=== PATIENT | female | born 1975 | race Caucasian/White ===

== ENCOUNTER 2022-05-30 14:22 | Outpatient (CLI) | payer BC, SELFPAY ==
--- NOTE | 2022-05-30 15:53 | NEURO ---
NCS and/or EMG Patient Report Ordering Doctor: Mahesh Kinney DATE OF SERVICE: 05/30/22 Katie presents for electrodiagnostic testing of the upper limbs. She reports numbness and tingling in both hands. Electrodiagnostic findings: Median motor nerve demonstrates normal distal latency, amplitude and conduction velocity bilaterally. Normal ulnar motor response bilaterally. Normal median and ulnar F waves. Prolonged median sensory latency at the wrist bilaterally. Normal ulnar and radial sensory responses. On needle EMG, all muscles tested in the upper limbs showed no evidence of denervation with normal motor unit action potentials. Electrodiagnostic impression: This is an abnormal study. 1. Electrodiagnostic findings suggestive of bilateral median mononeuropathy. This is consistent with a mild bilateral carpal tunnel syndrome.
== END 2022-05-30 23:59 | disposition home or self-care (01) ==
PROVIDERS: PCP Family Medicine; Referring Provider Family Medicine; Visit Provider Family Medicine
DX: R20.2 Paresthesia of skin (principal); R20.0 Anesthesia of skin
CPT/HCPCS: 95886; 95913

== ENCOUNTER 2023-07-12 07:18 | Day surgery (SDC) | payer BC, SELFPAY ==
--- NOTE | 2023-06-19 12:15 | PCM.HP.BLA ---
History and Physical Date of Admission: 07/12/23 HPI: The patient is a 48 year old female presenting for pre-operative visit. She is scheduled for hsyteroscopy D&C w/ iud insertion, bilateral salpingectomy, right oophorectomy for right ovarian dermoid, sterilization reqwuest, menorrhagia, adenomyosis on 07/12/22. Procedure discussed along with risks, benefits and complications. Other alternatives discussed for management. Consent form signed? Yes. ? ? PAST MEDICAL HISTORY PAST MEDICAL HISTORY Diagnosis Date ? Allergic rhinitis 02/24/2016 ? Carpal tunnel syndrome, bilateral 05/31/2022 ? NCS: 05/2022: mild ? Chronic pain of left knee 03/07/2018 ? Elevated hemoglobin A1c 03/22/2021 ? Family history of early CAD 08/27/2016 ? Family history of thyroid disease 03/22/2021 ? Fibroid, uterine 09/21/2021 ? [employer] [facility] [place] ? Generalized anxiety disorder 08/27/2016 ? Hypertension, essential 05/09/2022 ? Migraine without aura and without status migrainosus, not intractable 02/22/2015 ? Obesity, Class II, BMI 35-39.9 11/20/2017 ? Obesity, Class III, BMI 40-49.9 (morbid obesity) (HCC) 11/20/2017 ? PONV (postoperative nausea and vomiting) ? ? Severe obstructive sleep apnea 04/21/2018 ? Thyroid nodule 06/30/2014 ? Well adult exam 08/25/2014 ? LAst done 03/18/2020 ? ? PAST SURGICAL HISTORY PAST SURGICAL HISTORY Procedure Laterality Date ? *STRESS TEST PC ? 09/24/2016 ? normal ? COLONOSCOPY ? 10/26/2022 ? ESOPHAGOGASTRODUODENOSCOPY TRANSORAL DIAGNOSTIC ? 06/08/2016 ? EGD ? REMOVAL GALLBLADDER ? 1994 ? ? ? CURRENT MEDICATIONS Current Outpatient Medications Medication Sig Dispense Refill ? ferrous sulfate (IRON ORAL) Take by mouth. ? ? ? losartan (COZAAR) 25 mg tablet Take 1 tablet by mouth once daily. 30 tablet 5 ? SUMAtriptan (IMITREX) 100 mg tablet Take 1 tablet by mouth as needed for migraine headache (see administration instructions). 12 tablet 3 ? fluticasone (FLONASE) 50 mcg/actuation nasal spray Use 2 Sprays in each nostril once daily. 1 Each 11 ? MULTIVITAMIN/IRON/FOLIC ACID (DAILY MULTI ORAL) Take 1 tablet by mouth once daily. ? ? ? ibuprofen (MOTRIN) 200 mg tablet Take 200 mg by mouth every 6 hours as needed. ? ? ? No current facility-administered medications for this visit. ? ? ALLERGIES: Bactrim [Sulfamethoxazole], Amlodipine, Codeine, Hctz [Thiazides], Lisinopril, and Metoprolol ? PERSONAL HISTORY: SOCIAL HISTORY Social History ? Tobacco Use ? Smoking status: Never ? Smokeless tobacco: Never Vaping Use ? Vaping Use: Never used Substance Use Topics ? Alcohol use: Not Currently ? ? Comment: rare ? Drug use: No ? FAMILY HISTORY: FAMILY HISTORY FAMILY HISTORY Problem Relation Age of Onset ? Hypertension Mother ? ? Coronary Artery Disease Father 55 ? Cervical Cancer Maternal Grandmother ? ? Hypertension Maternal Grandmother ? ? Hypertension Maternal Grandfather ? ? Stroke Maternal Grandfather ? ? Colon Cancer Paternal Grandmother ? ? Prostate Cancer Paternal Grandfather ? ? Diabetes Maternal Aunt ? ? Diabetes Maternal Aunt ? ? Hypertension Maternal Aunt ? ? Thyroid Maternal Aunt ? ? Coronary Artery Disease Maternal Aunt ? ? 40's ? Hypertension Maternal Uncle ? ? ? REVIEW OF SYMPTOMS: GENERAL: denies fevers or chills ENDOCRINOLOGY: has not been on steroids Cardiology : denies palpitations or chest pain Respiratory: denies SOB or cough Hematology: denies history of prolonged bleeding or easy bruising or VTE Allergy: Denies history of personal or family history of allergy to anesthesia ? PHYSICAL EXAMINATION: ? VITALS: Last menstrual period 05/23/2023. ? GENERAL: The patient is well nourished, well hydrated in no acute distress. , The patient is oriented to time, place, and person. NECK: Supple. No lynphadenopathy, normal thyroid, no thyromegaly. LUNGS: Clear to auscultation bilaterally. no wheezes, rhonchi or rales HEART: Regular rate and rhythm, Normal heart sounds, and No murmurs or gallops ? ? PELVIC US 05/03/23 Indication Follow up adnexal cyst Impression A anteverted uterus seen that measures 96 mm x 57 mm x 64 mm. The myometrium is suspicious of adenomyosis but no obvious fibroids are observed. The central endometrium complex measures 10.7 mm in combined thickness. No abnormal blood flow to suggest a polyp or focal endometrial pathology is observed within the endometrial complex. The contour of the endometrial cavity was normal on 3-D imaging. There is a left ovarian cyst that is simple appearing and 3.3 cm in size. There are two right ovarian cysts measuring 7.2 cm in size and 2.0 cm in size. The ?cysts contain shadowing and hyperechoic lines. Appearance most consistent with dermoid cysts. There is no free fluid visualized in the peritoneal cavity. Recommendations 1. Possible adenomyosis. 2. O-RADS 2 ovarian simple cyst, almost certainly benign. No follow up imaging is needed. 3. O-RADS 2 ovarian lesion, non-simple cyst that is most likely a dermoid, almost certainly benign. Follow up ultrasound is recommended in 12 months if no surgical intervention. Clinical correlation is recommended. ? ? PAP and HPV neg 05/2023 EMB done 06/19/23 ? ? IMPRESSION: sterilzation request, right ovarian dermoid, menorrhagia, adenomyosis ? PLAN: The risks/benefits/alternatives and personal involved for the planned laparoscopic bilateral salpingectomy, right oophrectomy, hysteroscopy D&C w/ IUD insertion were reviewed with the patient. Her questions were answered to her satisfaction and she desires to proceed. Consent was signed. I reviewed with her postop instructions and expectations. ? I have reviewed and updated past medical and surgical history, medications and allergies Assessment & Plan Assessment/Plan (1) Dermoid cyst of right ovary: (2) Request for sterilization: (3) Menorrhagia: (4) Adenomyosis:
[2023-07-04 09:54] LABS: Hematocrit 38.3 % (37-47); Mean Corp Hgb Conc 31.3 g/dL (32-36); Mean Corpuscular Hgb 27.1 pg (27.0-32.0); Mean Corpuscular Volume 86.5 fL (81-99); Platelet Count 303 K/mm3 (150-450); RBC Distribution Width CV 14.6 % (11.6-14.6); RBC Distribution Width SD 46.5 fl (35.1-43.9); Red Blood Count 4.43 M/mm3 (4.2-5.4); White Blood Count 6.2 K/mm3 (4.4-11.0)
--- OUTSIDE RECORDS SUMMARY | 2023-07-12 07:40 | XMS RPT_ITS | CCD ---
Author Name Unknown Address [address] [place] [address] Organization [facility] Care Team Providers Care Party Planner Name Role Phone CALVIN VEGA Unavailable Unavailable Harleen Wilson Unavailable Unavailable Unknown, Referring Provider Unavailable Unav ailable Harleen Wilson Unavailable Unavailable Unavailable Unavailable Unavailable Jese Boston DO Unavailable Unavailable Mohamud Vegarey A Unavailable Unavailable Harleen Wilson Unavailable Unavailable Unknown, Referring Provider Unavailable Unav ailable Calvin Vega A Unavailable Unavailable Unavailable Calvin Vega MD Primary Care Provider Calvin Vega MD Primary Care Provider [phone] Calvin Vega MD Primary Care Provider Calvin Vega MD Primary Care Provider CALVIN VEGA Primary Care Unavailable AYDEE ECKERT JR Attending Unavailable SILVIA, CALVIN A Referring Unavailable SILVIA, CALVIN A Primary Care Unavailable BARRY GARCIA Referring Unavailable SILVIA, CALVIN A Primary Care Unavailable SILVIA, CALVIN A Referring Unavailable BARRY GARCIA Attending Unavailable SILVIA, CALVIN A Primary Care Unavailable BARRY GARCIA Referring Unavailable SILVIA, CALVIN A Primary Care Unavailable SILVIA, CALVIN A Primary Care Unavailable SILVIA, CALVIN A Referring Unavailable SILVIA, CALVIN A Primary Care Unavailable BARRY GARCIA Attending Unavailable SILVIA, CALVIN A Primary Care Unavailable LINDSAY HERRERA Attending Unavailable SILVIA, CALVIN A Primary Care Unavailable HOSEA TUCKER Referring Unavailable SILVIA, CALVIN A Primary Care Unavailable HOSEA TUCKER Referring Unavailable RADHA NORRIS Attending Unavailable SILVIA, CALVIN A Primary Care Unavailable RADHA NORRIS Referring Unavailable RADHA NORRIS Attending Unavailable SILVIA, CALVIN A Primary Care Unavailable SILVIA, CALVIN A Referring Unavailable HOSEA TUCKER Attending Unavailable SILVIA, CALVIN A Primary Care Unavailable LINDSAY HERRERA Attending Unavailable SILVIA, CALVIN A Primary Care Unavailable LINDSAY HERRERA Referring Unavailable SILVIA, CALVIN A Primary Care Unavailable LINDSAY HERRERA Attending Unavailable SILVIA, CALVIN A Primary Care Unavailable RADHA NORRIS Referring Unavailable TOMMIE OLMOS Attending Unavailable SILVIA, CALVIN A Primary Care Unavailable SILVIA, CALVIN A Attending Unavailable HOSEA TUCKER Referring Unavailable SILVIA, CALVIN A Primary Care Unavailable SILVIA, CALVIN A Referring Unavailable SILVIA, CALVIN A Primary Care Unavailable SILVIA, CALVIN A Referring Unavailable Allergies Allergy Classification Reported Allergen(s) Allergy Type Date of Onset Reaction(s) Facility Opioid Agonists (5 sources) Codeine; Translations: [codeine] Drug Allergy [facility] [address] Work Phone: Sulfamethoxazole / Trimethoprim (5 sources) Sulfamethoxazole / Trimethoprim; Translations: [Bactrim] Drug Allergy [facility] [address] Work Phone: (20 sources) codeine; Translations: [CODEINE] Drug Allergy 06-30-20 14 Other: See Comments [facility] Other [place] [facility] (20 sources) sulfamethoxazole; Translations: [SULFAMETHOXAZOLE] Drug Allergy 06-30-20 14 Hives, Other: See Comments [facility] Other [place] [facility] (2 sources) Sulfamethoxazole / Trimethoprim; Translations: [Bactrim] Drug Allergy [facility] [address] Work Phone: (17 sources) amLODIPine; Translations: [AMLODIPINE] Drug Allergy 10-05-19 23 Swelling [facility] Work Phone: (17 sources) Lisinopril; Translations: [LISINOPRIL] Drug Allergy 10-05-19 Cough [facility] Work Phone: (17 sources) Metoprolol; Translations: [METOPROLOL] Drug Allergy 10-05-19 Intolerance [facility] Work Phone: (17 sources) Thiazides; Translations: [THIAZIDES] Drug Intolerance 10-05-19 23 Intolerance [facility] Work Phone: Medications Current Medications Medication Drug Class(es) Dates Sig (Normalized) Sig (Original) amLODIPine 5 mg oral tablet (3 sources) Dihydropyridine Calcium Channel Hao Start: 05-10-2022 End: 06-14-2022 take 1 tablet by mouth once daily amLODIPine (NORVASC) 5 mg tablet Take 1 tablet by mouth once daily. 90 tablet 1 05/10/2022 06/14/2022 Discontinued (Side Effects) Completed/Discontinued Medications Medication Drug Class(es) Dates Sig (Normalized) Sig (Original) Lillow 0.15-30 MG-MCG Oral Tablet (6 sources) Progestin, Estrogen, Progestin-containin g Intrauterine Device Start: 07-21-2019 take 1 tablet by mouth once daily Lillow 0.15-30 MG-MCG Oral Tablet TAKE 1 TABLET DAILY. Quantity: 1 Refills: 7 [place] DO, Jese Start : 21-Jul-2019 Active 28 Tablet Pack Problems Active Problems Problem Classification Problem Date Documented Da te Episodic/Chronic Abdominal pain (19 sources) Abdominal pain - cause unknown; Translations: [Unspecified abdominal pain] Onset: 04-08-2023 04-08-2023 Episodic Anxiety disorders (20 sources) Generalized anxiety disorder; Translations: [Generalized anxiety disorder] Onset: 08-27-2016 02-25-2017 Chronic Coma, stupor, brain damage (1 source) Somnolence; Translations: [Somnolence] Onset: 04-04-2018 Episodic Endometriosis (7 sources) Uterine adenomyosis; Translations: [Adenomyosis] Onset: 05-30-2023 05-30-2023 Chronic Essential hypertension (20 sources) Essential hypertension; Translations: [Essential (primary) hypertension] Onset: 05-09-2022 Chronic Headache; including migraine (20 sources) Migraine without aura, not refractory ; Translations: [Migraine without aura, not intractable, without status migrainosus] Onset: 02-22-2015 08-27-2016 Chronic Immunizations and screening for infectious disease (1 source) Vaccination needed; Translations: [Encounter for immunization] 04-08-2023 Episodic Menstrual disorders (14 sources) Menorrhagia; Translations: [Excessive and frequent menstruation with regular cycle] Onset: 05-30-2023 05-30-2023 Chronic Other and unspecified benign neoplasm (6 sources) Leiomyoma; Translations: [Other benign neoplasm of connective and other soft tissue, site unspecified] Episodic Other and unspecified benign neoplasm (7 sources) Benign teratoma of ovary; Translations: [Benign neoplasm of left ovary] Onset: 05-30-2023 05-30-2023 Episodic Other lower respiratory disease (1 source) Snoring; Translations: [Snoring] Onset: 04-04-2018 Episodic Other lower respiratory disease (1 source) Apnea, not elsewhere classified; Translations: [Apnea, not elsewhere classified] Onset: 04-04-2018 Episodic Other nervous system disorders (20 sources) Bilateral carpal tunnel syndrome; Translations: [Carpal tunnel syndrome, bilateral upper limbs] Onset: 05-31-2022 Chronic Other nervous system disorders (1 source) Paresthesia of hand ; Translations: [Anesthesia of skin] Episodic Other nutritional; endocrine; and metabolic disorders (1 source) Morbid (severe) obesity due to excess calories; Translations: [Morbid (severe) obesity due to excess calories] Onset: 03-07-2018 Chronic Other nutritional; endocrine; and metabolic disorders (20 sources) Body mass index 40+ - severely obese; Translations: [Morbid (severe) obesity due to excess calories] Onset: 11-20-2017 03-07-2018 Chronic Other nutritional; endocrine; and metabolic disorders (2 sources) Severe obesity; Translations: [Morbid (severe) obesity due to excess calories] Chronic Other nutritional; endocrine; and metabolic disorders (13 sources) Obese class II; Translations: [Obesity, unspecified] Onset: 11-20-2017 04-08-2023 Chronic Other and delivery including normal (8 sources) Delivery normal; Translations: [Normal delivery] Episodic Past or Other Problems Problem Classification Problem Date Documented Date Episodic/Chronic Benign neoplasm of uterus (20 sources) Uterine leiomyoma; Translations: [Leiomyoma of uterus, unspecified] Onset: 09-21-2021 09-21-2021 Episodic Contraceptive and procreative management (20 sources) Patient encounter status; Translations: [Unspecified contraceptive management] Onset: 04-05-2022 Episodic Diabetes mellitus without complication (20 sources) High hemoglobin A1c level; Translations: [Other abnormal glucose] Onset: 03-22-2021 03-22-2021 Episodic Other aftercare (1 source) Other fpc (current) drug therapy; Translations: [Medication management] Onset: 04-05-2022 Episodic Other and unspecified benign neoplasm (1 source) Benign neoplasm, unspecified site; Translations: [Tubular adenoma] Onset: 10-31-2022 Episodic Other circulatory disease (20 sources) Elevated blood-pressure reading without diagnosis of hypertension; Translations: [Elevated blood-pressure reading, without diagnosis of hypertension] Onset: 08-25-2015 08-25-2015 Episodic Other non-traumatic joint disorders (20 sources) Pain in left knee; Translations: [Pain in joint, lower leg] Onset: 03-07-2018 03-22-2021 Episodic Residual codes; unclassified (20 sources) FH: premature coronary heart disease; Translations: [Family history of ischemic heart disease and other diseases of the circulatory system] Onset: 08-27-2016 08-27-2016 Episodic Residual codes; unclassified (20 sources) FH: Thyroid disorder; Translations: [Family history of other endocrine, nutritional and metabolic diseases] Onset: 03-22-2021 03-22-2021 Episodic Residual codes; unclassified (1 source) Family history of ischemic heart disease and other diseases of the circulatory system; Translations: [Family history of early CAD] Onset: 08-27-2016 Episodic Unclassified (2 sources) Patient encounter status; Translations: [Contraception management] Unclassified (8 sources) Finding of menstrual bleeding; Translations: [History of Menstruation] Results Test Name Value Interpretation Reference Range Facil ity Vital Signs Date Time Vital Sign Value Performing Clinician Facility 06-19-2023 09:33-0500 Diastolic blood pressure 82 mm[Hg] Barry Garcia MD Work Phone: [facility] 06-19-2023 09:33-0500 Heart rate 71 /min Barry Garcia MD Work Phone: [facility] 06-19-2023 09:33-0500 SaO2% (BldA) [Mass fraction] 98 % Barry Garcia MD Work Phone: [facility] 06-19-2023 09:33-0500 Systolic blood pressure 134 mm[Hg] Barry Garcia MD Work Phone: [facility] 05-30-2023 09:53-0500 Body height 168.9 cm Barry Garcia MD Work Phone: [facility] 05-30-2023 09:53-0500 Body weight 115.67 kg Barry Garcia MD Work Phone: [facility] 05-30-2023 09:53-0500 Diastolic blood pressure 76 mm[Hg] Barry Garcia MD Work Phone: [facility] 05-30-2023 09:53-0500 Systolic blood pressure 140 mm[Hg] Barry Garcia MD Work Phone: [facility] 04-08-2023 14:58-0400 Body height 168.9 cm Calvin Vega MD Work Phone: [facility] 04-08-2023 14:58-0400 Body weight 112.95 kg Calvin Vega MD Work Phone: [facility] 04-08-2023 14:58-0400 Diastolic blood pressure 82 mm[Hg] Calvin Vega MD Work Phone: [facility] 04-08-2023 14:58-0400 Heart rate 70 /min Calvin Vega MD Work Phone: [facility] 04-08-2023 14:58-0400 Respiratory rate 16 /min Calvin Vega MD Work Phone: [facility] 04-08-2023 14:58-0400 Systolic blood pressure 132 mm[Hg] Calvin Vega MD Work Phone: [facility] 10-26-2022 14:04-0400 Diastolic blood pressure 67 mm[Hg] Radha Norris MD Work Phone: [facility] 10-26-2022 14:04-0400 Heart rate 76 /min Radha Norris MD Work Phone: [facility] 10-26-2022 14:04-0400 Respiratory rate 14 /min Radha Norris MD Work Phone: [facility] 10-26-2022 14:04-0400 SaO2% (BldA) [Mass fraction] 99 % Radha Norris MD Work Phone: [facility] 10-26-2022 14:04-0400 Systolic blood pressure 130 mm[Hg] Radha Norris MD Work Phone: [facility] 10-26-2022 12:32-0400 Body temperature 98.4 [degF] Radha Norris MD Work Phone: [facility] 10-26-2022 12:32-0400 Body weight 121.5 kg Radha Norris MD Work Phone: [facility] 10-08-2022 15:28-0400 Body height 172.7 cm Radha Norris MD Work Phone: [facility] 10-08-2022 15:28-0400 Body temperature 98.71 [degF] Radha Norris MD Work Phone: [facility] 10-08-2022 15:28-0400 Body weight 121.47 kg Radha Norris MD Work Phone: [facility] 10-08-2022 15:28-0400 Diastolic blood pressure 72 mm[Hg] Radha Norris MD Work Phone: [facility] 10-08-2022 15:28-0400 Heart rate 88 /min Radha Norris MD Work Phone: [facility] 10-08-2022 15:28-0400 SaO2% (BldA) [Mass fraction] 97 % Radha Norris MD Work Phone: [facility] 10-08-2022 15:28-0400 Systolic blood pressure 134 mm[Hg] Radha Norris MD Work Phone: [facility] 10-04-2022 07:48-0400 Body temperature 97.5 [degF] Hosea Tucker PA-C Work Phone: [facility] 10-04-2022 07:48-0400 Body weight 121.11 kg Hosea Tucker PA-C Work Phone: [facility] 10-04-2022 07:48-0400 Diastolic blood pressure 76 mm[Hg] Hosea Tucker PA-C Work Phone: [facility] 10-04-2022 07:48-0400 Heart rate 70 /min Hosea Tucker PA-C Work Phone: [facility] 10-04-2022 07:48-0400 Respiratory rate 18 /min Hosea Tucker PA-C Work Phone: [facility] 10-04-2022 07:48-0400 Systolic blood pressure 124 mm[Hg] Hosea Tucker PA-C Work Phone: [facility] 09-20-2022 07:44-0400 Body weight 122.02 kg Lindsay Herrera ATOMIC PROCESS ENGINEER.AMPOULE EXAMINER Work Phone: [facility] 09-20-2022 07:44-0400 Diastolic blood pressure 76 mm[Hg] Lindsay Herrera APRN.AMPOULE EXAMINER Work Phone: [facility] 09-20-2022 07:44-0400 Heart rate 78 /min Lindsay Herrera ATOMIC PROCESS ENGINEER.AMPOULE EXAMINER Work Phone: [facility] 09-20-2022 07:44-0400 Respiratory rate 14 /min Lindsay Herrera APRN.AMPOULE EXAMINER Work Phone: [facility] 09-20-2022 07:44-0400 SaO2% (BldA) [Mass fraction] 98 % Lindsay Herrera APRN.AMPOULE EXAMINER Work Phone: [facility] 09-20-2022 07:44-0400 Systolic blood pressure 130 mm[Hg] Lindsay Herrera ATOMIC PROCESS ENGINEER.AMPOULE EXAMINER Work Phone: [facility] 08-23-2022 07:44-0500 Body weight 127.01 kg Lindsay Herrera APRN.AMPOULE EXAMINER Work Phone: [facility] 08-23-2022 07:44-0500 Diastolic blood pressure 78 mm[Hg] Lindsay Herrera ATOMIC PROCESS ENGINEER.AMPOULE EXAMINER Work Phone: [facility] 08-23-2022 07:44-0500 Heart rate 68 /min Lindsay Knoble ATOMIC PROCESS ENGINEER.AMPOULE EXAMINER Work Phone: [facility] 08-23-2022 07:44-0500 Respiratory rate 14 /min Lindsay Kaylynnoble ATOMIC PROCESS ENGINEER.AMPOULE EXAMINER Work Phone: [facility] 08-23-2022 07:44-0500 Systolic blood pressure 132 mm[Hg] Lindsay Kaylynnoble ATOMIC PROCESS ENGINEER.AMPOULE EXAMINER Work Phone: [facility] 07-19-2022 07:51-0500 Body weight 127.91 kg Lindsay Kaylynnoble ATOMIC PROCESS ENGINEER.AMPOULE EXAMINER Work Phone: [facility] 07-19-2022 07:51-0500 Diastolic blood pressure 82 mm[Hg] Lindsay Kaylynnoble ATOMIC PROCESS ENGINEER.AMPOULE EXAMINER Work Phone: [facility] 07-19-2022 07:51-0500 Heart rate 74 /min Lindsay Kaylynnoble ATOMIC PROCESS ENGINEER.AMPOULE EXAMINER Work Phone: [facility] 07-19-2022 07:51-0500 Respiratory rate 16 /min Lindsay Kaylynnoble ATOMIC PROCESS ENGINEER.AMPOULE EXAMINER Work Phone: [facility] 07-19-2022 07:51-0500 Systolic blood pressure 130 mm[Hg] Lindsay Kaylynnoble ATOMIC PROCESS ENGINEER.AMPOULE EXAMINER Work Phone: [facility] 06-14-2022 08:50-0500 Body weight 128.82 kg Lindsay Kaylynnoble ATOMIC PROCESS ENGINEER.AMPOULE EXAMINER Work Phone: [facility] 06-14-2022 08:50-0500 Diastolic blood pressure 86 mm[Hg] Lindsay Kaylynnoble ATOMIC PROCESS ENGINEER.AMPOULE EXAMINER Work Phone: [facility] 06-14-2022 08:50-0500 Heart rate 94 /min Lindsay Knoble ATOMIC PROCESS ENGINEER.AMPOULE EXAMINER Work Phone: [facility] 06-14-2022 08:50-0500 Respiratory rate 18 /min Lindsay Kaylynnoble ATOMIC PROCESS ENGINEER.AMPOULE EXAMINER Work Phone: [facility] 06-14-2022 08:50-0500 Systolic blood pressure 148 mm[Hg] Lindsay Knoble ATOMIC PROCESS ENGINEER.AMPOULE EXAMINER Work Phone: [facility] 04-05-2022 12:15-0400 Diastolic blood pressure 96 mm[Hg] Calvin Vega MD Work Phone: [facility] 04-05-2022 12:15-0400 Systolic blood pressure 152 mm[Hg] Calvin Vega MD Work Phone: [facility] 04-05-2022 11:56-0400 Body height 169.5 cm Calvin Vega MD Work Phone: [facility] 04-05-2022 11:56-0400 Body weight 126.1 kg Calvin Vega MD Work Phone: [facility] 04-05-2022 11:56-0400 Heart rate 78 /min Calvin Vega MD Work Phone: [facility] 04-05-2022 11:56-0400 Respiratory rate 16 /min Calvin Vega MD Work Phone: [facility] 02-17-2021 14:48-0400 Body height 170.18 cm Calvin Vega Work Phone: [place] [id number] [address] Work Phone: 02-17-2021 14:48-0400 Body mass index (BMI) [Ratio] 42.51 kg/m2 Calvin Vega Work Phone: [place] [address] [address] Work Phone: 02-17-2021 14:48-0400 Body surface area Derived from formula 2.3 m2 Calvin Vega Work Phone: [place] [address] [address] Work Phone: 02-17-2021 14:48-0400 Body temperature 98.6 [degF] Calvin Vega Work Phone: [place] [address] [address] Work Phone: 02-17-2021 14:48-0400 Body weight 123.1 kg Calvin Vega Work Phone: [place] [address] [address] Work Phone: 02-17-2021 14:48-0400 Diastolic blood pressure 74 mm[Hg] Calvin Vega Work Phone: [place] [address] [address] Work Phone: 02-17-2021 14:48-0400 Systolic blood pressure 134 mm[Hg] Calvin Vega Work Phone: [place] [address] [address] Work Phone: 01-25-2021 08:54-0400 Body height 170.18 cm Calvin Vega Work Phone: [place] [address] [address] Work Phone: 01-25-2021 08:54-0400 Body mass index (BMI) [Ratio] 42.41 kg/m2 Calvin Vega Work Phone: [place] [address] [address] Work Phone: 01-25-2021 08:54-0400 Body surface area Derived from formula 2.3 m2 Calvin Vega Work Phone: [place] [address] [address] Work Phone: 01-25-2021 08:54-0400 Body temperature 98.2 [degF] Calvin Vega Work Phone: [place] [address] [address] Work Phone: 01-25-2021 08:54-0400 Body weight 122.83 kg Calvin Vega Work Phone: [place] [address] [address] Work Phone: 01-25-2021 08:54-0400 Diastolic blood pressure 76 mm[Hg] Calvin Vega Work Phone: [place] [address] [address] Work Phone: 01-25-2021 08:54-0400 Systolic blood pressure 132 mm[Hg] Calvin Vega Work Phone: [address] Work Phone: Encounters Encounter Date Encounter Type Care Provider Facility Start: 06-19-2023 End: 06-19-2023 ambulatory CALVIN VEGA Facility:[facility] Start: 06-19-2023 End: 06-19-2023 ambulatory CALVIN VEGA Facility:[facility] Start: 06-19-2023 End: 06-19-2023 Patient encounter procedure Barry Garcia MD Work Phone: OB/Gynecology Procedures Date Procedure Procedure Detail Performing Clinician Start: 06-19-2023 Urine test visual color cmprsn meths Barry Garcia MD Work Phone: Start: 06-19-2023 Screening mammograph y bi 2-view breast inc cad Bulk Order Provider Start: 05-03-2023 Us pelvic nonobstetr ic real-time image complete Barry Garcia MD Work Phone: Start: 04-17-2023 Ct abdomen & pelvis w/contrast material Calvin Vega MD Work Phone: Start: 04-08-2023 INFLUENZA VACCINE, A GE 6 MO - 64 YR, QUADRIVALENT (AFLURIA, FLULAVAL, FLUZONE) Calvin Vega MD Work Phone: Start: 04-08-2023 [employer] COVI D-19 VACCINE (2022- SEASON) AGE 12+ YR Calvin Vega MD Work Phone: Start: 04-08-2023 Lipid 1996 panel - S chauncey or Plasma Ct (I-Stat) Work Phone: Start: 10-26-2022 Level iv surg pathol ogy gross&microscopic exam Radha Norris MD Work Phone: Start: 10-26-2022 Colonoscopy flx dx w /collj spec when pfrmd Radha Norris MD Work Phone: Start: 10-26-2022 Colonoscopy Calvin robbins MD Work Phone: Start: 10-04-2022 Lipid 1996 panel - S chauncey or Plasma Calvin Vega MD Work Phone: Start: 04-05-2022 INFLUENZA VACCINE QUADRIVALENT 6 MO - 64 YRS IM Calvin Vega MD Work Phone: Start: 04-05-2022 [employer] COVI D-19 BIVALENT BOOSTER VACCINE, AGE 12+ YR Calvin Vega MD Work Phone: Cholecystectomy Harleen Wilson Plan of Treatment Date Care Activity Detail Author Start: 03-18-2030 Urine microalbumin profile [facility] Start: 05-30-2028 Screening for malign ant neoplasm of cervix [facility] Start: 04-08-2028 Lipid 1996 panel - S chauncey or Plasma Lipid Screening [facility] Start: 04-08-2028 Lipid panel Lipid Screening [facility] Start: 10-27-2027 Colonoscopy COLONOSCOPY [facility] Start: 10-27-2027 COLORECTAL CANCER SCREENING COLORECTAL CANCER SCREENING [facility] Start: 10-27-2027 Screening for malign ant neoplasm of colon [facility] Start: 10-05-2027 Lipid 1996 panel - S chauncey or Plasma Lipid Screening [facility] Start: 10-05-2027 LIPID SCREEN LIPID SCREEN [facility] Start: 04-05-2027 LIPID SCREEN LIPID SCREEN [facility] Start: 04-08-2026 Diabetes Screening Diabetes Screenin g [facility] Start: 10-04-2025 DIABETES SCREEN DIABETES SCREEN [facility] Start: 07-19-2025 DIABETES SCREEN DIABETES SCREEN [facility] Start: 06-14-2025 DIABETES SCREEN DIABETES SCREEN [facility] Start: 04-05-2025 DIABETES SCREEN DIABETES SCREEN [facility] Start: 01-24-2025 HPV TESTING HPV TESTING [facility] Start: 01-24-2025 PAP TESTING PAP TESTING [facility] Start: 06-19-2024 Screening for malign ant neoplasm of breast Mammogram Screening [facility] Start: 04-08-2024 Annual PCP Team Steam Pipe Fitter shawn Disease Visit Annual PCP Team Chronic Disease Visit [facility] Start: 10-05-2023 ANNUAL PCP TEAM SENIOR SYSTEMS PROGRAMMER SHAWN DISEASE VISIT ANNUAL PCP TEAM CHRONIC DISEASE VISIT [facility] Start: 10-05-2023 BP CONTROLLED (<130/80) BP CONTROLLE D (<130/80) [facility] Start: 09-21-2023 ANNUAL PCP TEAM SENIOR SYSTEMS PROGRAMMER SHAWN DISEASE VISIT ANNUAL PCP TEAM CHRONIC DISEASE VISIT [facility] Start: 08-23-2023 ANNUAL PCP TEAM SENIOR SYSTEMS PROGRAMMER SHAWN DISEASE VISIT ANNUAL PCP TEAM CHRONIC DISEASE VISIT [facility] Start: 07-19-2023 ANNUAL PCP TEAM SENIOR SYSTEMS PROGRAMMER SHAWN DISEASE VISIT ANNUAL PCP TEAM CHRONIC DISEASE VISIT [facility] Start: 06-30-2023 Depression Assessment Depression Ass essment [facility] Immunizations Immunization Date Immunization Notes Care Provider Fa cility 04-08-2023 COVID-19 vaccine, ag e 12+ yr, season ([employer]ION[employer]) Calvin Vega MD Work Phone: [facility] 04-08-2023 influenza, injectabl e, quadrivalent, contains preservative Calvin Vega MD Work Phone: [facility] 04-05-2022 COVID-19 booster vaccine, age 12+ yr, bivalent (PFI[employer]ER-BIONTECH) Calvin Vega MD Work Phone: [facility] 04-05-2022 influenza, injectabl e, quadrivalent, contains preservative Calvin Vega MD Work Phone: [facility] 03-18-2020 influenza, injectabl e, quadrivalent, contains preservative Hosea Tucker PA-C Work Phone: [facility] 03-18-2020 tetanus toxoid, redu kinga diphtheria toxoid, and acellular pertussis vaccine, adsorbed Hosea Tucker PA-C Work Phone: [facility] 04-09-2016 influenza virus vaccine, unspecified formulation Hosea Tucker PA-C Work Phone: [facility] Work Phone: 08-25-2015 influenza, injectabl e, quadrivalent, contains preservative Hosea Tucker PA-C Work Phone: [facility] Work Phone: 06-14-2011 influenza, seasonal, injectable Barry Garcia MD Work Phone: [facility] Work Phone: 11-03-2008 tetanus toxoid, redu kinga diphtheria toxoid, and acellular pertussis vaccine, adsorbed Hosea Tucker PA-C Work Phone: [facility] Work Phone: Payers Date Payer Category Payer Unknown 2021 Unknown [employer] PPO OOS [id number] 2021-Present [phone] [address] [place] [address] PPO [id number] 2021 Unknown [id number] Social History Date Type Detail Facility Assertion Unknown if ever smoked Women [address] Work Phone: Start: 06-13-2022 End: 10-31-2022 No alcohol use No alcohol use [facility] Start: 06-16-2014 End: 04-05-2022 Tobacco smoking status [facility] Never smoked tobacco [facility] Work Phone: Start: 06-16-2014 End: 04-05-2022 Tobacco use and exposure Smokeless tobacco non-user [facility] Work Phone: Start: 09-21-2021 End: 09-11-2022 Alcohol intake Current drinker of alcohol (finding) [facility] Start: 03-18-2020 End: 04-05-2022 History SDOH Alcohol Frequency 1 [facility] Start: 03-18-2020 End: 04-05-2022 History SDOH Alcohol Std Drinks 98 [facility] Start: 06-16-2014 History SDOH Alcohol Comment rare [facility] Start: 03-18-2020 End: 06-14-2022 History SDOH Social Connections Living 3 [facility] Start: 03-18-2020 History SDOH Physica l Activity DPW 4 [facility] Start: 03-18-2020 End: 04-05-2022 History SDOH Stress 2 [facility] Start: 03-18-2020 End: 04-05-2022 History SDOH Financial 5 [facility] Start: 1975 Sex Assigned At Not on file [facility] Start: 09-11-2021 End: 04-05-2022 Exposure to SARS-CoV-2 (event) Not sure [facility] Start: 04-05-2022 History SDOH Alcohol Std Drinks 0 [facility] Start: 10-04-2022 End: 06-19-2023 Alcohol intake Ex-drinker (finding) [facility] Start: 06-13-2022 End: 10-31-2022 Social connection and isolation panel [facility] In a typical week, h ow many times do you talk on the telephone with family, friends, or neighbors? Patient refused [facility] Are you now , , , , never or living with a partner? Refused [facility] Do you feel stress - tense, restless, nervous, or anxious, or unable to sleep at night because your mind is troubled all the time - these days [OSQ] Not at all [facility] (I/We) worried wheth er (my/our) food would run out before (I/we) got money to buy more. DK or Refused [facility] Functional Status Date Assessment Result Facility NEGATED: Highlighted row Functional performance Functional status health issues are not documented [facility] [place] Work Phone: Mental Status Date Assessment Result Facility NEGATED: Highlighted row Cognitive function [Interpretation] Cognitive status health issues are not documented Disease [place] [id number] [facility] Work Phone: Clinical Notes 06-08-2016 to 07-04-2023 Barry Garcia MD - 06/19/2023 9:31 AM ESTPatient InstructionsBarry Garcia MD - 06/19/2023 9:28 AM ESTSGemma ya Mammo Tech - 06/19/2023 8:50 AM ESTPatient Instructions Note Date & Type Note Facility 07-04-2023 Note HNO ID: [id number] Author: EDITA SALDANA LPN Service: ? Author Type: LICENSED NURSE Type: Progress Notes Filed: 07/04/2023 13:29 Note Text: Scan on 07/04/2023 10:10 AM by ProviderYoko PAJodyC: Hematology Scan on 07/04/2023 12:12 PM by ProviderYoko PAJodyC: Miscellaneous Lab [facility] 06-19-2023 Note HNO ID: [id number] Author: Barry Garcia MD Service: ? Author Type: Physician Type: Progress Notes Filed: 06/19/2023 12:14 PM Note Text: Jaye is a 48 year old who presents today for an endometrial biopsy for abnormal uterine bleeding. test: negative UNIVERSAL PROTOCOL / SAFETY CHECKLIST Procedure to be Performed: EMB Sign In: A Moment of CARE was completed. Personnel directly involved with the procedure wore the appropriate PPE (Personal Protective Equipment). Patient/Surrogate Stated/Verified: PATIENT VERIFIED(optional for EMERGENT procedures): Patient name, Date of , Relevant allergies, and The intended procedure Time Out Communication: Intended patient and procedure match the source documents. Consent documented and matches the intended procedure. No implant(s) inserted. Sign Out: SIGN OUT (optional for EMERGENT procedures): All specimen containers correctly labeled. All instruments, equipment, possible retained foreign bodies accounted for. Post-procedure follow-up management communicated and Plan of Care Visit completed when applicable. Barry Garcia MD PROCEDURE: EXTERNAL GENITALIA: Normal in appearance without lesions VAGINA: Normal in appearance without lesions BIOPSY: Speculum placed into the vagina with excellent visualization of the cervix. Cervix cleaned with betadine. Anterior lip of cervix grasped with single toothed tenaculum. Uterus sounded to 7 cm. Pipelle inserted into the uterus without difficulty and endometrial biopsy obtained. Specimen labeled and sent to pathology. Procedure Summary: Patient tolerated procedure well. ASSESSMENT: abnormal uterine bleeding PLAN: Specimens labeled and sent to Pathology. Will notify patient of results in 1-2 weeks. Post-procedure instructions reviewed and written material given to the patient. Barry Garcia MD [facility] 06-19-2023 Note HNO ID: [id number] Author: Gemma Mendes Mammo Tech Service: ? Author Type: Electronic Intelligence Officer Type: Progress Notes Filed: 06/19/2023 9:17 AM Note Text: Radiology Service Progress Note PATIENT NAME: Jaye Patterson DATE OF SERVICE: June 19, 2023 TIME: 8:56 AM PATIENT IDENTITY VERIFICATION COMPLETED USING TWO (2) IDENTIFIERS: Name and Date of confirmed by patient verbally. FALL SCREENING: Has the patient had 2 falls in the last year or 1 fall with injury or currently using an Ambulatory Assistive Device (Walker, Cane, Wheelchair, Crutches, etc.)? No PATIENT GENDER DATA: Female. status: : No status: NO. PATIENT RELEVANT IMPLANT DATA REVIEWED: Not Applicable RADIOLOGY DEPARTMENT: Mammography PERIPHERAL IV DATA: Not applicable SIGNED BY: Gemma Mendes Ad [employer] June 19, 2023 8:56 AM [facility] 06-19-2023 History of Present illness Narrative Jaye is a 48 year old who presents today for an endometrial biopsy for abnormal uterine bleeding. test: negative UNIVERSAL PROTOCOL / SAFETY CHECKLIST Procedure to be Performed: EMB Sign In: A Moment of CARE was completed. Personnel directly involved with the procedure wore the appropriate PPE (Personal Protective Equipment). Patient/Surrogate Stated/Verified: PATIENT VERIFIED(optional for EMERGENT procedures): Patient name, Date of , Relevant allergies, and The intended procedure Time Out Communication: Intended patient and procedure match the source documents. Consent documented and matches the intended procedure. No implant(s) inserted. Sign Out: SIGN OUT (optional for EMERGENT procedures): All specimen containers correctly labeled. All instruments, equipment, possible retained foreign bodies accounted for. Post-procedure follow-up management communicated and Plan of Care Visit completed when applicable. Barry Garcia MD PROCEDURE: EXTERNAL GENITALIA: Normal in appearance without lesions VAGINA: Normal in appearance without lesions BIOPSY: Speculum placed into the vagina with excellent visualization of the cervix. Cervix cleaned with betadine. Anterior lip of cervix grasped with single toothed tenaculum. Uterus sounded to 7 cm. Pipelle inserted into the uterus without difficulty and endometrial biopsy obtained. Specimen labeled and sent to pathology. Procedure Summary: Patient tolerated procedure well. ASSESSMENT: abnormal uterine bleeding PLAN: Specimens labeled and sent to Pathology. Will notify patient of results in 1-2 weeks. Post-procedure instructions reviewed and written material given to the patient. Barry Garcia MD documented in this encounter [facility] 06-19-2023 Instructions Vasquez Berman Maatha - 06/19/2023 9:31 AM EST YOUR RECOVERY After your biopsy you may have: Vaginal bleeding (less than a normal menstrual period) Mild cramping Do NOT put anything in the vagina for 1 week after your endometrial biopsy. This includes: tampons douches and refraining from having sexual intercourse If you have any discomfort, you may take an over the counter pain medication (motrin, advil, ibuprofen, tylenol, etc). If this does not relieve your discomfort, contact the office. It is okay to wear a sanitary pad until the discharge and spotting stops. RISKS Although problems seldom occur with endometrial biopsies, there can be some complications. You may feel faint during and shortly after the procedure as well as have some bleeding after the procedure. There is also a risk of infection after the procedure. These complications are rare and can be easily treated. You should contact you doctor is you have any of the following: Heavy bleeding (more than your normal period) Bleeding with clots Severe abdominal pain Fever (more than 100.4F) Foul smelling vaginal discharge RESULTS We will have the results of your biopsy in 1-2 weeks. If you do not hear the results of your biopsy after 2 weeks, please contact the office for the results. If you have any additional questions or concerns please do not hesitate to contact the office. documented in this encounter [facility] 06-19-2023 History and physical note Pre-Op History and Physical HPI: The patient is a 48 year old female presenting for pre-operative visit. She is scheduled for hsyteroscopy D&C w/ iud insertion, bilateral salpingectomy, right oophorectomy for right ovarian dermoid, sterilization reqwuest, menorrhagia, adenomyosis on 07/12/22. Procedure discussed along with risks, benefits and complications. Other alternatives discussed for management. Consent form signed? Yes. PAST MEDICAL HISTORY Diagnosis Date Allergic rhinitis 02/24/2016 Carpal tunnel syndrome, bilateral 05/31/2022 NCS: 05/2022: mild Chronic pain of left knee 03/07/2018 Elevated hemoglobin A1c 03/22/2021 Family history of early CAD 08/27/2016 Family history of thyroid disease 03/22/2021 Fibroid, uterine 09/21/2021 [place] Generalized anxiety disorder 08/27/2016 Hypertension, essential 05/09/2022 Migraine without aura and without status migrainosus, not intractable 02/22/2015 Obesity, Class II, BMI 35-39.9 11/20/2017 Obesity, Class III, BMI 40-49.9 (morbid obesity) (HCC) 11/20/2017 PONV (postoperative nausea and vomiting) Severe obstructive sleep apnea 04/21/2018 Thyroid nodule 06/30/2014 Well adult exam 08/25/2014 LAst done 03/18/2020 PAST SURGICAL HISTORY Procedure Laterality Date *STRESS TEST PC 09/24/2016 normal COLONOSCOPY 10/26/2022 ESOPHAGOGASTRODUODENOSCOPY TRANSORAL DIAGNOSTIC 06/08/2016 EGD REMOVAL GALLBLADDER 1994 Current Outpatient Medications Medication Sig Dispense Refill ferrous sulfate (IRON ORAL) Take by mouth. losartan (COZAAR) 25 mg tablet Take 1 tablet by mouth once daily. 30 tablet 5 SUMAtriptan (IMITREX) 100 mg tablet Take 1 tablet by mouth as needed for migraine headache (see administration instructions). 12 tablet 3 fluticasone (FLONASE) 50 mcg/actuation nasal spray Use 2 Sprays in each nostril once daily. 1 Each 11 MULTIVITAMIN/IRON/FOLIC ACID (DAILY MULTI ORAL) Take 1 tablet by mouth once daily. ibuprofen (MOTRIN) 200 mg tablet Take 200 mg by mouth every 6 hours as needed. No current facility-administered medications for this visit. ALLERGIES: Bactrim [Sulfamethoxazole], Amlodipine, Codeine, Hctz [Thiazides], Lisinopril, and Metoprolol PERSONAL HISTORY: Social History Tobacco Use Smoking status: Never Smokeless tobacco: Never Vaping Use Vaping Use: Never used Substance Use Topics Alcohol use: Not Currently Comment: rare Drug use: No FAMILY HISTORY: FAMILY HISTORY Problem Relation Age of Onset Hypertension Mother Coronary Artery Disease Father 55 Cervical Cancer Maternal Grandmother Hypertension Maternal Grandmother Hypertension Maternal Grandfather Stroke Maternal Grandfather Colon Cancer Paternal Grandmother Prostate Cancer Paternal Grandfather Diabetes Maternal Aunt Diabetes Maternal Aunt Hypertension Maternal Aunt Thyroid Maternal Aunt Coronary Artery Disease Maternal Aunt 40's Hypertension Maternal Uncle REVIEW OF SYMPTOMS: GENERAL: denies fevers or chills ENDOCRINOLOGY: has not been on steroids Cardiology : denies palpitations or chest pain Respiratory: denies SOB or cough Hematology: denies history of prolonged bleeding or easy bruising or VTE Allergy: Denies history of personal or family history of allergy to anesthesia PHYSICAL EXAMINATION: VITALS: Last menstrual period 05/23/2023. GENERAL: The patient is well nourished, well hydrated in no acute distress. , The patient is oriented to time, place, and person. NECK: Supple. No lynphadenopathy, normal thyroid, no thyromegaly. LUNGS: Clear to auscultation bilaterally. no wheezes, rhonchi or rales HEART: Regular rate and rhythm, Normal heart sounds, and No murmurs or gallops PELVIC US 05/03/23 Indication Follow up adnexal cyst Impression A anteverted uterus seen that measures 96 mm x 57 mm x 64 mm. The myometrium is suspicious of adenomyosis but no obvious fibroids are observed. The central endometrium complex measures 10.7 mm in combined thickness. No abnormal blood flow to suggest a polyp or focal endometrial pathology is observed within the endometrial complex. The contour of the endometrial cavity was normal on 3-D imaging. There is a left ovarian cyst that is simple appearing and 3.3 cm in size. There are two right ovarian cysts measuring 7.2 cm in size and 2.0 cm in size. The cysts contain shadowing and hyperechoic lines. Appearance most consistent with dermoid cysts. There is no free fluid visualized in the peritoneal cavity. Recommendations 1. Possible adenomyosis. 2. O-RADS 2 ovarian simple cyst, almost certainly benign. No follow up imaging is needed. 3. O-RADS 2 ovarian lesion, non-simple cyst that is most likely a dermoid, almost certainly benign. Follow up ultrasound is recommended in 12 months if no surgical intervention. Clinical correlation is recommended. PAP and HPV neg 05/2023 EMB done 06/19/23 IMPRESSION: sterilzation request, right ovarian dermoid, menorrhagia, adenomyosis PLAN: The risks/benefits/alternatives and personal involved for the planned laparoscopic bilateral salpingectomy, right oophrectomy, hysteroscopy D&C w/ IUD insertion were reviewed with the patient. Her questions were answered to her satisfaction and she desires to proceed. Consent was signed. I reviewed with her postop instructions and expectations. I have reviewed and updated past medical and surgical history, medications and allergies Barry Garcia M.D. documented in this encounter [facility] 06-19-2023 History of Present illness Narrative Radiology Service Progress Note PATIENT NAME: Jaye Patterson DATE OF SERVICE: June 19, 2023 TIME: 8:56 AM PATIENT IDENTITY VERIFICATION COMPLETED USING TWO (2) IDENTIFIERS: Name and Date of confirmed by patient verbally. FALL SCREENING: Has the patient had 2 falls in the last year or 1 fall with injury or currently using an Ambulatory Assistive Device (Walker, Cane, Wheelchair, Crutches, etc.)? No PATIENT GENDER DATA: Female. status: : No status: NO. PATIENT RELEVANT IMPLANT DATA REVIEWED: Not Applicable RADIOLOGY DEPARTMENT: Mammography PERIPHERAL IV DATA: Not applicable SIGNED BY: Kimberly Alejoo Miranda June 19, 2023 8:56 AM documented in this encounter [facility] 05-30-2023 Note HNO ID: [id number] Author: Barry Garcia MD Service: ? Author Type: Physician Type: Progress Notes Filed: 05/30/2023 1:45 PM Note Text: Jaye is a 48 year old No obstetric history on file. who presents for an annual gynecologic exam with complaints, heavy menses and intermittent but becoming more frequent RLQ pain. Was put on control and helped some but doesn't want to be on hormones fpc. Menses got heavier despite OCPS and has been off of them 2 years now. Usually menses 7-10 + days with heavy bleeding. Bleeds through protection, makes it difficult to leave house. Feels clots and blood running out at times and changes q 1 hr at heaviest- pads. Cant wear tampons b/c of how heavy flow is. Cramping starts w/ menses and takes tylenol prn. Has pain rlq w/ BMs as well. Menses: cycles every 28 days and 7-10 or more days of flow. Contraception: none HPV vaccine: No Last Pap: normal HPV: negative History of abnormal pap: No Last mammogram: 2020normal Sexually active: Yes OB History No obstetric history on file. [employer] History LMP: 05/23/2023 (Approximate), Having periods Age at Menarche: Age at First : Age at Menopause: [employer] History Comments: Sexual Activity: Yes; Male Contraception: No contraception data on record PAST MEDICAL HISTORY Diagnosis Date Allergic rhinitis 02/24/2016 Carpal tunnel syndrome, bilateral 05/31/2022 NCS: 05/2022: mild Chronic pain of left knee 03/07/2018 Elevated hemoglobin A1c 03/22/2021 Family history of early CAD 08/27/2016 Family history of thyroid disease 03/22/2021 Fibroid, uterine 09/21/2021 [place] [place] Generalized anxiety disorder 08/27/2016 Hypertension, essential 05/09/2022 Migraine without aura and without status migrainosus, not intractable 02/22/2015 Obesity, Class II, BMI 35-39.9 11/20/2017 Obesity, Class III, BMI 40-49.9 (morbid obesity) (HCC) 11/20/2017 PONV (postoperative nausea and vomiting) Severe obstructive sleep apnea 04/21/2018 Thyroid nodule 06/30/2014 Well adult exam 08/25/2014 LAst done 03/18/2020 PAST SURGICAL HISTORY Procedure Laterality Date *STRESS TEST PC 09/24/2016 normal COLONOSCOPY 10/26/2022 ESOPHAGOGASTRODUODENOSCOPY TRANSORAL DIAGNOSTIC 06/08/2016 EGD REMOVAL GALLBLADDER 1994 FAMILY HISTORY Problem Relation Age of Onset Hypertension Mother Coronary Artery Disease Father 55 Cervical Cancer Maternal Grandmother Hypertension Maternal Grandmother Hypertension Maternal Grandfather Stroke Maternal Grandfather Colon Cancer Paternal Grandmother Prostate Cancer Paternal Grandfather Diabetes Maternal Aunt Diabetes Maternal Aunt Hypertension Maternal Aunt Thyroid Maternal Aunt Coronary Artery Disease Maternal Aunt 40's Hypertension Maternal Uncle SOCIAL HISTORY Social History Tobacco Use Smoking status: Never Smokeless tobacco: Never Vaping Use Vaping Use: Never used Substance Use Topics Alcohol use: Not Currently Comment: rare Drug use: No REVIEW OF SYSTEMS Abdomen: No abdominal pain, nausea, vomiting, diarrhea, or constipation. No bloating, early satiety, indigestion, or increased flatulence.Some pain w/ BMs Bladder: No dysuria, gross hematuria, urinary frequency, urinary urgency, or incontinence. Breast: No breast lumps, nipple d/c, overlying skin changes, redness or skin retraction. Allergies and current medication updated:Yes EXAM: BP 140/76 Ht 5' 6.5 (1.69m) Wt 255 lb (115.7kg) LMP 05/23/2023 BMI 40.55 kg/(m2). GENERAL: pleasant, female in no apparent distress HEENT: Normocephalic, atraumatic, mucus membranes moist, and no lesions NECK: Supple, full range of motion, no adenopathy, and thyroid normal DERMATOLOGY: Normal, without lesions, non-icteric, and non-hirsute BREAST: soft, non-tender, symmetric, no dominant mass, normal nipple-areolar complex, no lymphadenopathy, and no nipple discharge CHEST: Normal inspiratory effort ABDOMEN: soft, non-tender, and no masses PELVIC: external genitalia normal, normal Bartholin's glands, urethra, [place]'s glands, no vulvar lesions, no cervical lesions, good vaginal support, physiologic discharge present, normal appearing perineal body and perianal region BIMANUAL: uterus normal size, shape and consistency, no adnexal masses, and non-tender RECTOVAGINAL: deferred. NEURO: alert and oriented x3,exam grossly non-focal EXTREMITIES: normal ASSESSMENT/PLAN: 1) Health maintenance: Pap done with HPV. Mammogram ordered. 2) Contraception: none. Contraceptive options reviewed and information provided. 3) STD screening: Declined STD check. 4) Follow up one year or sooner as needed 5- left ovarian dermoid cyst. Reviewed CT and pelvic us. I reviewed with her the risk benefits and alternatives to various surgical options. We reviewed option of removal of the dermoid cyst itself, the entire ovary containing the cyst. Reviewed the option o (more content not included)... [facility] 05-30-2023 History of Present illness Narrative Jaye is a 48 year old No obstetric history on file. who presents for an annual gynecologic exam with complaints, heavy menses and intermittent but becoming more frequent RLQ pain. Was put on control and helped some but doesn't want to be on hormones fpc. Menses got heavier despite OCPS and has been off of them 2 years now. Usually menses 7-10 + days with heavy bleeding. Bleeds through protection, makes it difficult to leave house. Feels clots and blood running out at times and changes q 1 hr at heaviest- pads. Cant wear tampons b/c of how heavy flow is. Cramping starts w/ menses and takes tylenol prn. Has pain rlq w/ BMs as well. Menses: cycles every 28 days and 7-10 or more days of flow. Contraception: none HPV vaccine: No Last Pap: normal HPV: negative History of abnormal pap: No Last mammogram: 2020normal Sexually active: Yes OB History No obstetric history on file. [employer] History LMP: 05/23/2023 (Approximate), Having periods Age at Menarche: Age at First : Age at Menopause: [employer] History Comments: Sexual Activity: Yes; Male Contraception: No contraception data on record PAST MEDICAL HISTORY Diagnosis Date Allergic rhinitis 02/24/2016 Carpal tunnel syndrome, bilateral 05/31/2022 NCS: 05/2022: mild Chronic pain of left knee 03/07/2018 Elevated hemoglobin A1c 03/22/2021 Family history of early CAD 08/27/2016 Family history of thyroid disease 03/22/2021 Fibroid, uterine 09/21/2021 [place] Generalized anxiety disorder 08/27/2016 Hypertension, essential 05/09/2022 Migraine without aura and without status migrainosus, not intractable 02/22/2015 Obesity, Class II, BMI 35-39.9 11/20/2017 Obesity, Class III, BMI 40-49.9 (morbid obesity) (HCC) 11/20/2017 PONV (postoperative nausea and vomiting) Severe obstructive sleep apnea 04/21/2018 Thyroid nodule 06/30/2014 Well adult exam 08/25/2014 LAst done 03/18/2020 PAST SURGICAL HISTORY Procedure Laterality Date *STRESS TEST PC 09/24/2016 normal COLONOSCOPY 10/26/2022 ESOPHAGOGASTRODUODENOSCOPY TRANSORAL DIAGNOSTIC 06/08/2016 EGD REMOVAL GALLBLADDER 1994 FAMILY HISTORY Problem Relation Age of Onset Hypertension Mother Coronary Artery Disease Father 55 Cervical Cancer Maternal Grandmother Hypertension Maternal Grandmother Hypertension Maternal Grandfather Stroke Maternal Grandfather Colon Cancer Paternal Grandmother Prostate Cancer Paternal Grandfather Diabetes Maternal Aunt Diabetes Maternal Aunt Hypertension Maternal Aunt Thyroid Maternal Aunt Coronary Artery Disease Maternal Aunt 40's Hypertension Maternal Uncle SOCIAL HISTORY Social History Tobacco Use Smoking status: Never Smokeless tobacco: Never Vaping Use Vaping Use: Never used Substance Use Topics Alcohol use: Not Currently Comment: rare Drug use: No REVIEW OF SYSTEMS Abdomen: No abdominal pain, nausea, vomiting, diarrhea, or constipation. No bloating, early satiety, indigestion, or increased flatulence.Some pain w/ BMs Bladder: No dysuria, gross hematuria, urinary frequency, urinary urgency, or incontinence. Breast: No breast lumps, nipple d/c, overlying skin changes, redness or skin retraction. Allergies and current medication updated:Yes EXAM: BP 140/76 Ht 5' 6.5 (1.69m) Wt 255 lb (115.7kg) LMP 05/23/2023 BMI 40.55 kg/(m^2). GENERAL: pleasant, female in no apparent distress HEENT: Normocephalic, atraumatic, mucus membranes moist, and no lesions NECK: Supple, full range of motion, no adenopathy, and thyroid normal DERMATOLOGY: Normal, without lesions, non-icteric, and non-hirsute BREAST: soft, non-tender, symmetric, no dominant mass, normal nipple-areolar complex, no lymphadenopathy, and no nipple discharge CHEST: Normal inspiratory effort ABDOMEN: soft, non-tender, and no masses PELVIC: external genitalia normal, normal Bartholin's glands, urethra, [place]'s glands, no vulvar lesions, no cervical lesions, good vaginal support, physiologic discharge present, normal appearing perineal body and perianal region BIMANUAL: uterus normal size, shape and consistency, no adnexal masses, and non-tender RECTOVAGINAL: deferred. NEURO: alert and oriented x3,exam grossly non-focal EXTREMITIES: normal ASSESSMENT/PLAN: 1) Health maintenance: Pap done with HPV. Mammogram ordered. 2) Contraception: none. Contraceptive options reviewed and information provided. 3) STD screening: Declined STD check. 4) Follow up one year or sooner as needed 5- left ovarian dermoid cyst. Reviewed CT and pelvic us. I reviewed with her the risk benefits and alternatives to various surgical options. We reviewed option of removal of the dermoid cyst itself, the entire ovary containing the cyst. Reviewed the option of surveillance. Patient would like to proceed with removal of the entire ovary. We also discussed that concurrently we could perform bilateral salpingectomy and the risk benefits and alternatives to this. This would be contraception in the form of permanent sterilization and she understands it would be permanent and irreversible. 6-adenomyosis, dysmenorrhea and heavy menstrual bleeding. Risk benefits and alternatives to various options were discussed with patient, her questions were answered to her satisfaction. We reviewed hormonal options, transischemic acid, or an IUD. She is not a good endometrial ablation candidate because of her adenomyosis. We reviewed that she also may have some endometriosis but this difficult to definitively know. Recommend endometrial biopsy. Recommend CBC and iron studies. Recommend multivitamin with iron to help prevent anemia. We reviewed that if she proceeds with tubal for sterilization and removal of left ovarian dermoid, could do hysteroscopy D&C with IUD insertion to control her menses. She is interested in this and will discuss further. Given a handout on Mirena to review. Barry Garcia MD documented in this encounter [facility] 05-16-2023 Miscellaneous Notes Last refill 10/04/22 Qty: 30 with 5 refills SEGUN 04/08/23 NOV 10/08/23 Edita Saldana LPN documented in this encounter [facility] 05-13-2023 Miscellaneous Notes Left detailed message for patient. Meli Alexis MA Let patient know it os ok to take ibuprofen as needed. (Last office BP was 132/82) Pt calls to check in as advised by pcp after losartan dose was decreased in half. Pt reports decreasing the dose helped with some of the sx she was having. Pt reports she still has blurry vision intermittently. Pt did not have her bp readings but reports they have not gone up since decreasing losartan. Pt is asking if she can take ibuprofen. Pt reports she gets DEVI's sometimes and the insert said to ask your dr. Yani Cooney LPN documented in this encounter [facility] 04-17-2023 Note HNO ID: [id number] Author: Julia Quigley RT(R) Service: ? Author Type: Electronic Intelligence Officer Type: Progress Notes Filed: 04/17/2023 4:02 PM Note Text: Radiology Service Progress Note DATE OF SERVICE: April 17, 2023 TIME: 4:02 PM PATIENT IDENTITY VERIFICATION COMPLETED USING TWO (2) STANDARD IDENTIFIERS: Name and Date of confirmed by patient verbally. FALL SCREENING: Has the patient had 2 falls in the last year or 1 fall with injury or currently using an Ambulatory Assistive Device (Walker, Cane, Wheelchair, Crutches, etc.)? No PATIENT GENDER DATA: Female. status: : No status: NO. PATIENT RELEVANT IMPLANT DATA REVIEWED: Yes ALLERGIES: Reviewed and unchanged CONTRAST ALLERGY: NO. EXAM: CT -CONTRAST INDUCED NEPHROPATHY RISK FACTORS: Not applicable CREATININE: Creatinine Date Value Ref Range Status 04/08/2023 0.75 0.58 - 0.96 mg/dL Final 10/04/2022 0.71 0.58 - 0.96 mg/dL Final 07/19/2022 0.67 0.58 - 0.96 mg/dL Final Estimated Glomerular Filtration Rate Date Value Ref Range Status 04/08/2023 100 >=60 mL/min/1.73m? Final Comment: Estimated Glomerular Filtration Rate (eGFR) is calculated using the 2020 CKD-EPI creatinine equation. This equation utilizes serum creatinine, sex, and age as parameters. The creatinine assay has traceable calibration to isotope dilution-mass spectrometry. Refer to KDIGO guidelines for clinical interpretation. In patients with unstable renal function, e.g. those with acute kidney injury, the eGFR may not accurately reflect actual GFR. P.O.C.T. RESULTS: POC done: Yes, See Lab Tab April 17, 2023 TREATMENT: N/A PERIPHERAL IV DATA: Ambulatory: A peripheral IV was started in the Left antecubital site with a Angio cath: 22 gauge. RADIOLOGY DEPARTMENT: CT; Exam(s) Completed: Abdomen/Pelvis SIGNATURE: RT Manolo(R) PATIENT NAME: Jaye Patterson DATE: April 17, 2023 TIME: 4:02 PM [facility] 04-17-2023 History of Present illness Narrative Radiology Service Progress Note DATE OF SERVICE: April 17, 2023 TIME: 4:02 PM PATIENT IDENTITY VERIFICATION COMPLETED USING TWO (2) STANDARD IDENTIFIERS: Name and Date of confirmed by patient verbally. FALL SCREENING: Has the patient had 2 falls in the last year or 1 fall with injury or currently using an Ambulatory Assistive Device (Walker, Cane, Wheelchair, Crutches, etc.)? No PATIENT GENDER DATA: Female. status: : No status: NO. PATIENT RELEVANT IMPLANT DATA REVIEWED: Yes ALLERGIES: Reviewed and unchanged CONTRAST ALLERGY: NO. EXAM: CT -CONTRAST INDUCED NEPHROPATHY RISK FACTORS: Not applicable CREATININE: Creatinine Date Value Ref Range Status 04/08/2023 0.75 0.58 - 0.96 mg/dL Final 10/04/2022 0.71 0.58 - 0.96 mg/dL Final 07/19/2022 0.67 0.58 - 0.96 mg/dL Final Estimated Glomerular Filtration Rate Date Value Ref Range Status 04/08/2023 100 >=60 mL/min/1.73m Final Comment: Estimated Glomerular Filtration Rate (eGFR) is calculated using the 2020 CKD-EPI creatinine equation. This equation utilizes serum creatinine, sex, and age as parameters. The creatinine assay has traceable calibration to isotope dilution-mass spectrometry. Refer to KDIGO guidelines for clinical interpretation. In patients with unstable renal function, e.g. those with acute kidney injury, the eGFR may not accurately reflect actual GFR. P.O.C.T. RESULTS: POC done: Yes, See Lab Tab April 17, 2023 TREATMENT: N/A PERIPHERAL IV DATA: Ambulatory: A peripheral IV was started in the Left antecubital site with a Angio cath: 22 gauge. RADIOLOGY DEPARTMENT: CT; Exam(s) Completed: Abdomen/Pelvis SIGNATURE: RT Manolo(R) PATIENT NAME: Jaye Patterson DATE: April 17, 2023 TIME: 4:02 PM documented in this encounter [facility] 04-08-2023 Note HNO ID: [id number] Author: Calvin Vega MD Service: ? Author Type: Physician Type: Progress Notes Filed: 04/08/2023 7:51 PM Note Text: Chief Complaint Patient presents with: Physical HPI Jaye Patterson is a 48 year old female who presents here today for Physical. Patient has been having dizziness since beginning the new BP medication. Notices when she gets up she feels dizzy and some nausea, especially first thing in the morning. Patient has also noticed joint pain. She has been working on her diet and has lost approx 40 lbs. Past medical history, appointments, medications, allergies reviewed. Previous Medical History PAST MEDICAL HISTORY Diagnosis Date Allergic rhinitis 02/24/2016 Carpal tunnel syndrome, bilateral 05/31/2022 NCS: 05/2022: mild Chronic pain of left knee 03/07/2018 Elevated hemoglobin A1c 03/22/2021 Family history of early CAD 08/27/2016 Family history of thyroid disease 03/22/2021 Fibroid, uterine 09/21/2021 [place] [employer] [place] [place] Generalized anxiety disorder 08/27/2016 Hypertension, essential 05/09/2022 Migraine without aura and without status migrainosus, not intractable 02/22/2015 Obesity, Class III, BMI 40-49.9 (morbid obesity) (HCC) 11/20/2017 PONV (postoperative nausea and vomiting) Severe obstructive sleep apnea 04/21/2018 Thyroid nodule 06/30/2014 Well adult exam 08/25/2014 LAst done 03/18/2020 Previous Surgical History PAST SURGICAL HISTORY Procedure Laterality Date *STRESS TEST PC 09/24/2016 normal ABDOMINAL SURGERY HX COLONOSCOPY 10/26/2022 ESOPHAGOGASTRODUODENOSCOPY TRANSORAL DIAGNOSTIC 06/08/2016 EGD Family History FAMILY HISTORY Problem Relation Age of Onset Colon Cancer Paternal Grandmother Cervical Cancer Maternal Grandmother Hypertension Maternal Grandmother Coronary Artery Disease Father 55 Diabetes Maternal Aunt Diabetes Maternal Aunt Hypertension Mother Hypertension Maternal Grandfather Stroke Maternal Grandfather Hypertension Maternal Aunt Hypertension Maternal Uncle Prostate Cancer Paternal Grandfather Thyroid Maternal Aunt Coronary Artery Disease Maternal Aunt 40's Patient Allergies ALLERGIES Allergen Reactions Bactrim [Sulfametho* Hives, Other: See Comments Fever, Chills, rash, low BP Amlodipine Swelling Leg swelling Hctz [Thiazides] Intolerance Dizziness and chest heaviness Lisinopril Cough cough Metoprolol Intolerance Mild Chest pressure Codeine Other: See Comments Chest pain Current Medications Current Outpatient Medications on File Prior to Visit Medication Sig SUMAtriptan (IMITREX) 100 mg tablet Take 1 tablet by mouth as needed for migraine headache (see administration instructions). losartan (COZAAR) 25 mg tablet Take 1 tablet by mouth once daily. fluticasone (FLONASE) 50 mcg/actuation nasal spray Use 2 Sprays in each nostril once daily. MULTIVITAMIN/IRON/FOLIC ACID (DAILY MULTI ORAL) Take 1 tablet by mouth once daily. ibuprofen (MOTRIN) 200 mg tablet Take 200 mg by mouth every 6 hours as needed. No current facility-administered medications on file prior to visit. Social History Social History Tobacco Use Smoking status: Never Smokeless tobacco: Never Vaping Use Vaping Use: Never used Substance Use Topics Alcohol use: Not Currently Comment: rare Drug use: No Review of Symptoms REVIEW OF SYSTEMS GENERAL: No unintentional weight loss, malaise or fevers HEENT: Negative for frequent or significant headaches, No changes in hearing., no nose bleeds or other nasal problems. NECK: Negative for lumps, goiter, pain and significant neck swelling RESPIRATORY: Negative for cough, hemoptysis, wheezing, COPD, dyspnea or shortness of breath CARDIOVASCULAR: Negative for chest pain, leg swelling, hypertension, CHF or palpitations. See HPI GI: No nausea, vomiting, or diarrhea and No heartburn or reflux symptoms. Still getting a pain in the right side of her abdomen off and on. When she had her colonoscopy she noted the discomfort after awakening from the procedure. She has had her gal bladder removed and has a Hx of uterine fibroids. : No history of dysuria, frequency or blood MUSCULOSKELETAL: Negative for joint pain or swelling, back pain or muscle pain SKIN: Negative for lesions, rash, and itching PSYCH: Negative for sleep disturbance, mood disorder and recent psychosocial stressors HEMATOLOGY/LYMPHOLOGY: Negative for prolonged bleeding, bruising easily or swollen nodes ENDOCRINE: Negative for cold or heat intolerance, polyuria, polydipsia and goiter NEURO: No history of headaches, syncope, paralysis, seizures or tremors EXAM: BP 132/82 (BP Site: Left Arm, BP Position: Sitting, BP Cuff Size: Large Adult) Pulse 70 Resp 16 Ht 168.9 cm (5' 6.5 ) Wt 112.9 kg (249 lb) LMP 03/25/2023 (Approximate) BMI 39.59 kg/m? Last 5 Encounter Wt Readings: Date: Wt: 04/08/2023 112.9 kg (249 lb) 10/26/2022 121.5 kg (267 (more content not included)... [facility] 04-08-2023 Instructions Calvin Vega MD - 04/08/2023 3:[address] Vega in 3-4 weeks via My Chart regarding decreased dose of losartan and dizziness, Decrease the losartan dose to 25 mg 1/2 a tab daily. documented in this encounter [facility] 04-08-2023 History of Present illness Narrative Chief Complaint Patient presents with: Physical HPI Jaye Pattesron is a 48 year old female who presents here today for Physical. Patient has been having dizziness since beginning the new BP medication. Notices when she gets up she feels dizzy and some nausea, especially first thing in the morning. Patient has also noticed joint pain. She has been working on her diet and has lost approx 40 lbs. Past medical history, appointments, medications, allergies reviewed. Previous Medical History PAST MEDICAL HISTORY Diagnosis Date Allergic rhinitis 02/24/2016 Carpal tunnel syndrome, bilateral 05/31/2022 NCS: 05/2022: mild Chronic pain of left knee 03/07/2018 Elevated hemoglobin A1c 03/22/2021 Family history of early CAD 08/27/2016 Family history of thyroid disease 03/22/2021 Fibroid, uterine 09/21/2021 [place] [place] [place] Generalized anxiety disorder 08/27/2016 Hypertension, essential 05/09/2022 Migraine without aura and without status migrainosus, not intractable 02/22/2015 Obesity, Class III, BMI 40-49.9 (morbid obesity) (HCC) 11/20/2017 PONV (postoperative nausea and vomiting) Severe obstructive sleep apnea 04/21/2018 Thyroid nodule 06/30/2014 Well adult exam 08/25/2014 LAst done 03/18/2020 Previous Surgical History PAST SURGICAL HISTORY Procedure Laterality Date *STRESS TEST PC 09/24/2016 normal ABDOMINAL SURGERY HX COLONOSCOPY 10/26/2022 ESOPHAGOGASTRODUODENOSCOPY TRANSORAL DIAGNOSTIC 06/08/2016 EGD Family History FAMILY HISTORY Problem Relation Age of Onset Colon Cancer Paternal Grandmother Cervical Cancer Maternal Grandmother Hypertension Maternal Grandmother Coronary Artery Disease Father 55 Diabetes Maternal Aunt Diabetes Maternal Aunt Hypertension Mother Hypertension Maternal Grandfather Stroke Maternal Grandfather Hypertension Maternal Aunt Hypertension Maternal Uncle Prostate Cancer Paternal Grandfather Thyroid Maternal Aunt Coronary Artery Disease Maternal Aunt 40's Patient Allergies ALLERGIES Allergen Reactions Bactrim [Sulfametho* Hives, Other: See Comments Fever, Chills, rash, low BP Amlodipine Swelling Leg swelling Hctz [Thiazides] Intolerance Dizziness and chest heaviness Lisinopril Cough cough Metoprolol Intolerance Mild Chest pressure Codeine Other: See Comments Chest pain Current Medications Current Outpatient Medications on File Prior to Visit Medication Sig SUMAtriptan (IMITREX) 100 mg tablet Take 1 tablet by mouth as needed for migraine headache (see administration instructions). losartan (COZAAR) 25 mg tablet Take 1 tablet by mouth once daily. fluticasone (FLONASE) 50 mcg/actuation nasal spray Use 2 Sprays in each nostril once daily. MULTIVITAMIN/IRON/FOLIC ACID (DAILY MULTI ORAL) Take 1 tablet by mouth once daily. ibuprofen (MOTRIN) 200 mg tablet Take 200 mg by mouth every 6 hours as needed. No current facility-administered medications on file prior to visit. Social History Social History Tobacco Use Smoking status: Never Smokeless tobacco: Never Vaping Use Vaping Use: Never used Substance Use Topics Alcohol use: Not Currently Comment: rare Drug use: No Review of Symptoms REVIEW OF SYSTEMS GENERAL: No unintentional weight loss, malaise or fevers HEENT: Negative for frequent or significant headaches, No changes in hearing., no nose bleeds or other nasal problems. NECK: Negative for lumps, goiter, pain and significant neck swelling RESPIRATORY: Negative for cough, hemoptysis, wheezing, COPD, dyspnea or shortness of breath CARDIOVASCULAR: Negative for chest pain, leg swelling, hypertension, CHF or palpitations. See HPI GI: No nausea, vomiting, or diarrhea and No heartburn or reflux symptoms. Still getting a pain in the right side of her abdomen off and on. When she had her colonoscopy she noted the discomfort after awakening from the procedure. She has had her gal bladder removed and has a Hx of uterine fibroids. : No history of dysuria, frequency or blood MUSCULOSKELETAL: Negative for joint pain or swelling, back pain or muscle pain SKIN: Negative for lesions, rash, and itching PSYCH: Negative for sleep disturbance, mood disorder and recent psychosocial stressors HEMATOLOGY/LYMPHOLOGY: Negative for prolonged bleeding, bruising easily or swollen nodes ENDOCRINE: Negative for cold or heat intolerance, polyuria, polydipsia and goiter NEURO: No history of headaches, syncope, paralysis, seizures or tremors EXAM: BP 132/82 (BP Site: Left Arm, BP Position: Sitting, BP Cuff Size: Large Adult) Pulse 70 Resp 16 Ht 168.9 cm (5' 6.5 ) Wt 112.9 kg (249 lb) LMP 03/25/2023 (Approximate) BMI 39.59 kg/m Last 5 Encounter Wt Readings: Date: Wt: 04/08/2023 112.9 kg (249 lb) 10/26/2022 121.5 kg (267 lb 13.7 oz) 10/08/2022 121.5 kg (267 lb 12.8 oz) 10/04/2022 121.1 kg (267 lb) 09/20/2022 122 kg (269 lb) General Appearance: Well appearing, alert, in no acute distress, well-hydrated, well nourished. and Obese. Skin: Skin color, texture, turgor normal, no suspicious rashes or lesions. Head: Normocephalic, no masses, lesions, tenderness or abnormalities. Eyes: Anicteric sclera. Pupils are equally round and reactive to light. Extraocular movements are intact. . Ears: External ears, TM's normal, canals clear. Nose/Sinuses: Nares normal, septum midline, mucosa normal, no drainage or sinus tenderness. Oropharynx: Lips, mucosa, and tongue normal, teeth and gums normal, oropharynx normal. Neck: Supple, no adenopathy; thyroid symmetric, normal size, no bruits. Lungs: Lungs clear to auscultation. No wheezing, rhonchi, rales.. Heart: RRR without murmur, gallop, or rubs. No ectopy. Abdomen: Normal abdominal exam, Abdomen soft, non-distended, non-tender. Bowel sounds normal. No masses, organomegaly. Extremities: No deformities, edema, skin discoloration, clubbing or cyanosis. Good capillary refill. . Musculoskeletal: Muscular strength intact, No joint swelling, deformity, or tenderness. Peripheral Pulses: Normal. Neurologic: Gait normal. Reflexes normal and symmetric. Sensation to light touch and crainal nerves 2-12 intact.. Health Maintenance List BP Controlled (<130/80) Never done Mammogram Screening Never done Depression Assessment due on 07/01/2022 Influenza Vaccine(1) due on 03/01/2023 Annual PCP Team Chronic Disease Visit due on 10/05/2023 Pap Testing due on 01/24/2025 HPV Testing due on 01/24/2025 Diabetes Screening due on 10/04/2025 Lipid Screening due on 10/05/2027 Colorectal Cancer Screening due on 10/27/2027 DTaP,Tdap,Td Vaccine(3 - Td or Tdap) due on 03/18/2030 Covid-19 Vaccine Completed HPV Vaccine Aged Out Hepatitis B Vaccine Discontinued Hepatitis C Screening Discontinued HIV Screening Discontinued Data reviewed 04/08/23 1458 04/08/23 1506 04/08/23 1507 04/08/23 1508 BP: 132/82 Pulse: 70 Resp: 16 Height: 168.9 cm (5' 6.5 ) Weight: 112.9 kg (249 lb) Orthostatic BP: 136/80 121/86 125/87 BP Position: Sitting Supine Sitting Standing Orthostatic Pulse: 78 81 85 Component Latest Ref Rng & Units 09/21/2021 04/05/2022 07/19/2022 10/04/2022 Protein, Total 6.3 - 8.0 g/dL 7.8 8.2 (H) Albumin 3.9 - 4.9 g/dL 4.2 4.3 Calcium 8.5 - 10.2 mg/dL 9.4 9.3 9.4 Bilirubin, Total 0.2 - 1.3 mg/dL 0.4 1.0 Alkaline Phosphatase 34 - 123 U/L 43 60 AST 13 - 35 U/L 24 28 ALT 7 - 38 U/L 19 28 Glucose 74 - 99 mg/dL 102 (H) 104 (H) 103 (H) BUN 7 - 21 mg/dL 11 10 13 Creatinine 0.58 - 0.96 mg/dL 0.75 0.67 0.71 Sodium 136 - 144 mmol/L 138 138 138 Potassium 3.7 - 5.1 mmol/L 4.2 4.3 4.3 Chloride 97 - 105 mmol/L 104 103 103 CO2 22 - 30 mmol/L 22 25 25 Anion Gap 9 - 18 mmol/L 12 10 10 eGFR >=60 mL/min/1.73m 101 110 107 Total Cholesterol, Nonfasting <200 mg/dL 198 149 Triglycerides, Nonfasting <150 mg/dL 144 84 HDL Cholesterol, Nonfasting >39 mg/dL 45 41 LDL Cholesterol, Nonfasting <100 mg/dL 124 (H) 91 Non HDL Cholesterol, Nonfasting <130 mg/dL 153 (H) 108 VLDL Cholesterol, Nonfasting <30 mg/dL 29 17 Total Chol/HDL Ratio, Nonfasting <5.10 mg/dL 4.40 3.63 LDL/HDL Ratio, Nonfasting <2.54 mg/dL 2.76 (H) 2.22 Hemoglobin A1C 4.3 - 5.6 % 5.8 (H) 5.6 Estimated Average Glucose mg/dL 120 114 TSH 0.270 - 4.200 mIU/L 1.940 A/P ASSESSMENT/PLAN: 1. Well adult exam - ICD9: V70.0, ICD10: Z00.00 (primary diagnosis) - Counseled on healthy diet and regular exercise - Calcium intake with supplements or by diet of 1000 mg/day for under 50, 0479-6549 mg/day for 50+ - Patient was counseled [id number] by myself (the billing provider) for the following immunizations and vaccine components, including side effects: COVID-19 and Influenza. Patient consents for immunization and understands risks and benefits. A VIS sheet on each immunization was given to the patient. - Follow up for annual exam in one year 2. Hypertension, essential - ICD9: 401.9, ICD10: I10 - Controlled - Continue current medications - Decrease losartan 25 mg to 1/2 a tab daily. - Recommend home blood pressure monitoring, to bring results to next visit - Encouraged sodium restriction, DASH or Mediterranean diet - Recommend regular aerobic exercise - Discussed need for and benefit of weight loss. BMI 39.59 kg/(m^2) Check - COMP METABOLIC PANEL - LIPID PANEL, NONFASTING - URINALYSIS, WITH MICROSCOPIC 3. Migraine without aura and without status migrainosus, not intractable - ICD9: 346.10, ICD10: G43.009 - clinically stable no changes. 4. Generalized anxiety disorder - ICD9: 300.02, ICD10: F41.1 - stable and not needing meds. 5. Obesity, Class II, BMI 35-39.9 - ICD9: 278.00, ICD10: E66.9 - patient has been working on life style changes for weight loss. Patient to continue working on this. 6. Thyroid nodule - ICD9: 241.0, ICD10: E04.1 Check - TSH BLD 7. Severe obstructive sleep apnea - ICD9: 327.23, ICD10: G47.33 - wearing CPAP nightly 8. Need for vaccination - ICD9: V05.9, ICD10: Z23 - INFLUENZA VACCINE, AGE 6 MO - 64 YR, QUADRIVALENT (AFLURIA, FLULAVAL, FLUZONE): given - [employer] COVID-19 VACCINE ( SEASON) AGE 12+ YR: given 9. Right-sided abdominal pain of unknown cause - ICD9: 789.09, ICD10: R10.9 - patient has had a US in the past and recently a colonoscopy that provided no source of pain. Will need evaluation with CT to complete w/u to r/o a life threatening source. Check - CT ABD/PEL W IVCON - IV CONTRAST (RADIOLOGY PROCEDURE) - ENTERIC CONTRAST (RADIOLOGY PROCEDURE) 10. Abdominal pain, unspecified abdominal location - ICD9: 789.00, ICD10: R10.9 Check - CT ABD/PEL W IVCON - IV CONTRAST (RADIOLOGY PROCEDURE) - ENTERIC CONTRAST (RADIOLOGY PROCEDURE) 11. Elevated hemoglobin A1c - ICD9: 790.29, ICD10: R73.09 Check - HGB A1C F/u in 6 months routine. Patient to update me in 3-4 weeks regarding decreased dose of losartan and dizziness. Calvin Vega MD documented in this encounter [facility] 01-23-2023 Note Patient Outreach (IN [facility]) JAYE PATTERSON ([id number]) 1975 F Date Time Provider Department 01/23/23 CALVIN VEGA During your visit today, we recorded the following information about you: Allergies As of Date: 01/23/2023 Noted Allergy Reaction BACTRIM (SULFAMETHOXAZOLE) 06/30/2014 4 - Hives 14 - Other: See Comments Comments: Fever, Chills, rash, low BP AMLODIPINE 10/04/2022 7 - Swelling Comments: Leg swelling HCTZ (THIAZIDES) 10/04/2022 5 - Intolerance Comments: Dizziness and chest heaviness LISINOPRIL 10/04/2022 3 - Cough Comments: cough METOPROLOL 10/04/2022 5 - Intolerance Comments: Mild Chest pressure CODEINE 06/30/2014 14 - Other: See Comments Comments: Chest pain Date Reviewed: 10/31/2022 Reviewed by: Tommie Olmos PA-C - Fully Assessed Visit Diagnosis:Encounter for screening mammogram for breast cancer [Z12.31] Order(s):[facility] SCREENING [[id number]] Order #: [id number] FUTURE Prescriptions as of 01/28/2023 - SUMAtriptan (IMITREX) 100 mg tablet Take 1 tablet by mouth as needed for migraine headache (see administration instructions). - losartan (COZAAR) 25 mg tablet Take 1 tablet by mouth once daily. - fluticasone (FLONASE) 50 mcg/actuation nasal spray Use 2 Sprays in each nostril once daily. - MULTIVITAMIN/IRON/FOLIC ACID (DAILY MULTI ORAL) Take 1 tablet by mouth once daily. - ibuprofen (MOTRIN) 200 mg tablet Take 200 mg by mouth every 6 hours as needed. Problem List As Of Date 01/23/2023 Noted Resolved Thyroid nodule [E04.1] 06/30/2014 Routine gynecological examination [Z01.419] 06/30/2014 Well adult exam [Z00.00] 08/25/2014 Migraine without aura and without status migrai*02/22/2015 Allergic rhinitis [J30.9] 02/24/2016 GERD without esophagitis [K21.9] 06/08/2016 06/08/2016 Family history of early CAD [Z82.49] 08/27/2016 Generalized anxiety disorder [F41.1] 08/27/2016 Obesity, Class III, BMI 40-49.9 (morbid obesity*11/20/2017 Chronic pain of left knee [M25.562, G89.29] 03/07/2018 Severe obstructive sleep apnea [G47.33] 04/21/2018 Family history of thyroid disease [Z83.49] 03/22/2021 Elevated hemoglobin A1c [R73.09] 03/22/2021 Fibroid, uterine [D25.9] 09/21/2021 Medication management [Z79.899] 04/05/2022 Hypertension, essential [I10] 05/09/2022 Carpal tunnel syndrome, bilateral [G56.03] 05/31/2022 Encounter Status:Closed by LAUREL, PRODUSER on 01/28/23 [facility] 10-31-2022 Note HNO ID: [id number] Author: Tommie Olmos PA-C Service: ? Author Type: Physician [employer] Type: Progress Notes Filed: 11/05/2022 9:29 AM Note Text: In lieu of an in-person visit due to COVID-19 concerns, a distance health visit was performed on the patient. Patient is aware that I am not fully able to assess symptoms and do a full physical examination including vital signs assessment at this time. Patient consents to this encounter. FOLLOW UP VISIT - ENDOSCOPY NAME: Jaye Patterson [facility] NO.: [id number] DATE OF SERVICE: 10/31/2022 : 1975 REFERRING PHYSICIAN: Calvin Vega MD Jaye is a patient I am following with Dr. Norris for colonoscopy. Dr. Norris performed lower endoscopy on 10/26/22. The patient was found to have a small polyp in the descending colon which was removed. Pathology demonstrated: FINAL DIAGNOSIS A. Left colon, polyp, biopsy: -Tubular adenoma. The patient notes no complaints since the procedure. Assessment IMPRESSION: s/p colonoscopy with polypectomy-small tubular adenoma PLAN: The operative findings and pathology report were reviewed with the patient, and the patient has had the opportunity to ask questions and have questions answered. If the patient notes any problems or changes in bowel function, the patient should contact me immediately. Otherwise I recommend follow up endoscopy in 5 years. HM updated and recall letter generated. Patient verbalized understanding of all above and agreed with the plan Diagnoses: (D36.9) Tubular adenoma (primary encounter diagnosis) I spent a total of 22 minutes on the date of the service which included preparing to see the patient, completing clinical documentation, obtaining and/or reviewing separately obtained history, counseling and educating the patient/family/caregiver, and independently interpreting results (not separately reported). Tommie Olmos PA-C [facility] 10-26-2022 Nurse Note Patient received in phase II via cot left lateral position, eyes open, alert to self and event, skin warm and dry, respirations regular and unlabored, denies pain or nausea, abdomen softly distended. Resting comfortably on left side. documented in this encounter [facility] 10-26-2022 History and physical note UPDATED PROCEDURAL SEDATION HISTORY AND PHYSICAL EXAMINATION SERVICE DATE: 10/26/2022 SERVICE TIME: 12:16 PHYSICAL EXAM MUST BE COMPLETED ON ADMISSION PROCEDURE: colonoscopy, possible biopsies Procedure Indications: screening for colon cancer The History and Physical (completed in the past 30 days) has been reviewed and the patient has been examined. The contents accurately reflect the patient's condition with the following additions or revisions since the H&P was completed. ASA Class: ASA Class:: Patient with severe systemic disease Examination indicates no changes. AIRWAY: Airway Visualization of Uvula: Yes Mouth opening greater than 2 fingerbreadths: Yes Neck Full Range of Motion: Yes LUNGS: Lungs clear to auscultation CARDIAC: Regular rhythm,Regular rate Provisional Diagnosis/Treatment Plan: colonoscopy, possible biopsies SEDATION GOAL: Moderate This H&P can be found in the Electronic Medical Record . SIGNATURE: Radha Norris MD PATIENT NAME: Jaye Patterson DATE: October 26, 2022 TIME: 12:16 PM Source Note - Radha Norris MD - 10/26/2022 12:45 PM EDT HISTORY AND PHYSICAL Jaye Patterson 1975 REFERRING PHYSICIAN: Hosea Tucker PA-C CHIEF COMPLAINT: Consult (Screening for colon cancer) HPI: The patient is a 47 year old female referred for endoscopy. Jaye notes irritable bowel type symptoms with occasional loose stools. The patient denies blood in stools, denies chronic abdominal pain, and denies changes in bowel habits. The patient notes no colon cancer in immediate family. The patient has not had previous colonoscopy. PAST MEDICAL HISTORY PAST MEDICAL HISTORY Diagnosis Date Allergic rhinitis 02/24/2016 Carpal tunnel syndrome, bilateral 05/31/2022 NCS: 05/2022: mild Chronic pain of left knee 03/07/2018 Elevated hemoglobin A1c 03/22/2021 Family history of early CAD 08/27/2016 Family history of thyroid disease 03/22/2021 Fibroid, uterine 09/21/2021 [place] [place] [place] Generalized anxiety disorder 08/27/2016 Hypertension, essential 05/09/2022 Migraine without aura and without status migrainosus, not intractable 02/22/2015 Obesity, Class III, BMI 40-49.9 (morbid obesity) ([facility]) 11/20/2017 Severe obstructive sleep apnea 04/21/2018 Thyroid nodule 06/30/2014 Well adult exam 08/25/2014 LAst done 03/18/2020 PAST SURGICAL HISTORY PAST SURGICAL HISTORY Procedure Laterality Date *STRESS TEST PC 09/24/2016 normal ESOPHAGOGASTRODUODENOSCOPY TRANSORAL DIAGNOSTIC 06/08/16 EGD Current Outpatient Medications Medication Sig peg 3350-Electrolytes (GOLYTELY) 236-22.74-6.74 -5.86 gram suspension Take 4,000 mL by mouth one time only for 1 dose. Refer to printed prep instructions from your provider. SUMAtriptan (IMITREX) 100 mg tablet Take 1 tablet by mouth as needed for migraine headache (see administration instructions). losartan (COZAAR) 25 mg tablet Take 1 tablet by mouth once daily. fluticasone (FLONASE) 50 mcg/actuation nasal spray Use 2 Sprays in each nostril once daily. MULTIVITAMIN/IRON/FOLIC ACID (DAILY MULTI ORAL) Take 1 tablet by mouth once daily. ibuprofen (MOTRIN) 200 mg tablet Take 200 mg by mouth every 6 hours as needed. ALLERGIES: Bactrim [Sulfamethoxazole], Amlodipine, Hctz [Thiazides], Lisinopril, Metoprolol, and Codeine PERSONAL HISTORY: SOCIAL HISTORY Social History Tobacco Use Smoking status: Never Smokeless tobacco: Never Vaping Use Vaping Use: Never used Substance Use Topics Alcohol use: Not Currently Comment: rare Drug use: No FAMILY HISTORY FAMILY HISTORY Problem Relation Age of Onset Colon Cancer Paternal Grandmother Cervical Cancer Maternal Grandmother Hypertension Maternal Grandmother Coronary Artery Disease Father 55 Diabetes Maternal Aunt Diabetes Maternal Aunt Hypertension Mother Hypertension Maternal Grandfather Stroke Maternal Grandfather Hypertension Maternal Aunt Hypertension Maternal Uncle Prostate Cancer Paternal Grandfather Thyroid Maternal Aunt Coronary Artery Disease Maternal Aunt 40's REVIEW OF SYMPTOMS: The review of systems data was entered by the nurse and reviewed by me There are no exam notes on file for this visit. PHYSICAL EXAMINATION: General: The patient is 47 year old female, well nourished, well hydrated in no acute distress. The patient is oriented to time, place, and person. VITALS: Blood pressure 134/72, pulse 88, temperature 37.1 C (98.7 F), height 172.7 cm (5' 8 ), weight 121.5 kg (267 lb 12.8 oz), last menstrual period 04/01/2022, SpO2 97 %. Body mass index is 40.72 kg/m . Head: Normal cephalic, atraumatic Eyes: pupils are equally round, sclera are clear/anicteric Neck is supple with no tracheal deviation Respiratory: Normal respiratory excursion and pattern. Abdominal exam: benign Extremities: no clubbing, cyanosis or edema. Neuro: non focal Psych: normal mood IMPRESSION: screening for colon cancer PLAN: I have discussed the above with the patient. I have offered colonoscopy, possible biopsies I have explained the procedure to the patient. I have counseled the patient as to the risks of the procedure, including but not limited to: infection, bleeding, injury to any intrabdominal organs such as liver/spleen, perforation of the GI tract, inability to complete the procedure, complications of anesthesia, etc. - the patient understands. The patient wishes to proceed. I have answered all questions to the patient s satisfaction and the patient has no further questions. Diagnoses: (Z12.11) Screening for colon cancer HISTORY AND PHYSICAL Jaye Patterson 1975 REFERRING PHYSICIAN: Hosea Tucker PA-C CHIEF COMPLAINT: Consult (Screening for colon cancer) HPI: The patient is a 47 year old female referred for endoscopy. Jaye notes irritable bowel type symptoms with occasional loose stools. The patient denies blood in stools, denies chronic abdominal pain, and denies changes in bowel habits. The patient notes no colon cancer in immediate family. The patient has not had previous colonoscopy. PAST MEDICAL HISTORY PAST MEDICAL HISTORY Diagnosis Date Allergic rhinitis 02/24/2016 Carpal tunnel syndrome, bilateral 05/31/2022 NCS: 05/2022: mild Chronic pain of left knee 03/07/2018 Elevated hemoglobin A1c 03/22/2021 Family history of early CAD 08/27/2016 Family history of thyroid disease 03/22/2021 Fibroid, uterine 09/21/2021 [place] [place] [place] Generalized anxiety disorder 08/27/2016 Hypertension, essential 05/09/2022 Migraine without aura and without status migrainosus, not intractable 02/22/2015 Obesity, Class III, BMI 40-49.9 (morbid obesity) (HCC) 11/20/2017 Severe obstructive sleep apnea 04/21/2018 Thyroid nodule 06/30/2014 Well adult exam 08/25/2014 LAst done 03/18/2020 PAST SURGICAL HISTORY PAST SURGICAL HISTORY Procedure Laterality Date *STRESS TEST PC 09/24/2016 normal ESOPHAGOGASTRODUODENOSCOPY TRANSORAL DIAGNOSTIC 06/08/16 EGD Current Outpatient Medications Medication Sig peg 3350-Electrolytes (GOLYTELY) 236-22.74-6.74 -5.86 gram suspension Take 4,000 mL by mouth one time only for 1 dose. Refer to printed prep instructions from your provider. SUMAtriptan (IMITREX) 100 mg tablet Take 1 tablet by mouth as needed for migraine headache (see administration instructions). losartan (COZAAR) 25 mg tablet Take 1 tablet by mouth once daily. fluticasone (FLONASE) 50 mcg/actuation nasal spray Use 2 Sprays in each nostril once daily. MULTIVITAMIN/IRON/FOLIC ACID (DAILY MULTI ORAL) Take 1 tablet by mouth once daily. ibuprofen (MOTRIN) 200 mg tablet Take 200 mg by mouth every 6 hours as needed. ALLERGIES: Bactrim [Sulfamethoxazole], Amlodipine, Hctz [Thiazides], Lisinopril, Metoprolol, and Codeine PERSONAL HISTORY: SOCIAL HISTORY Social History Tobacco Use Smoking status: Never Smokeless tobacco: Never Vaping Use Vaping Use: Never used Substance Use Topics Alcohol use: Not Currently Comment: rare Drug use: No FAMILY HISTORY FAMILY HISTORY Problem Relation Age of Onset Colon Cancer Paternal Grandmother Cervical Cancer Maternal Grandmother Hypertension Maternal Grandmother Coronary Artery Disease Father 55 Diabetes Maternal Aunt Diabetes Maternal Aunt Hypertension Mother Hypertension Maternal Grandfather Stroke Maternal Grandfather Hypertension Maternal Aunt Hypertension Maternal Uncle Prostate Cancer Paternal Grandfather Thyroid Maternal Aunt Coronary Artery Disease Maternal Aunt 40's REVIEW OF SYMPTOMS: The review of systems data was entered by the nurse and reviewed by me There are no exam notes on file for this visit. PHYSICAL EXAMINATION: General: The patient is 47 year old female, well nourished, well hydrated in no acute distress. The patient is oriented to time, place, and person. VITALS: Blood pressure 134/72, pulse 88, temperature 37.1 C (98.7 F), height 172.7 cm (5' 8 ), weight 121.5 kg (267 lb 12.8 oz), last menstrual period 04/01/2022, SpO2 97 %. Body mass index is 40.72 kg/m . Head: Normal cephalic, atraumatic Eyes: pupils are equally round, sclera are clear/anicteric Neck is supple with no tracheal deviation Respiratory: Normal respiratory excursion and pattern. Abdominal exam: benign Extremities: no clubbing, cyanosis or edema. Neuro: non focal Psych: normal mood IMPRESSION: screening for colon cancer PLAN: I have discussed the above with the patient. I have offered colonoscopy, possible biopsies I have explained the procedure to the patient. I have counseled the patient as to the risks of the procedure, including but not limited to: infection, bleeding, injury to any intrabdominal organs such as liver/spleen, perforation of the GI tract, inability to complete the procedure, complications of anesthesia, etc. - the patient understands. The patient wishes to proceed. I have answered all questions to the patient s satisfaction and the patient has no further questions. Diagnoses: (Z12.11) Screening for colon cancer documented in this encounter [facility] 10-08-2022 Note HNO ID: [id number] Author: Radha Norris MD Service: ? Author Type: Physician Type: Progress Notes Filed: 10/09/2022 1:48 PM Note Text: HISTORY AND PHYSICAL Jaye Patterson 1975 REFERRING PHYSICIAN: Hosea Tucker PA-C CHIEF COMPLAINT: Consult (Screening for colon cancer) HPI: The patient is a 47 year old female referred for endoscopy. Jaye notes irritable bowel type symptoms with occasional loose stools. The patient denies blood in stools, denies chronic abdominal pain, and denies changes in bowel habits. The patient notes no colon cancer in immediate family. The patient has not had previous colonoscopy. PAST MEDICAL HISTORY Diagnosis Date Allergic rhinitis 02/24/2016 Carpal tunnel syndrome, bilateral 05/31/2022 NCS: 05/2022: mild Chronic pain of left knee 03/07/2018 Elevated hemoglobin A1c 03/22/2021 Family history of early CAD 08/27/2016 Family history of thyroid disease 03/22/2021 Fibroid, uterine 09/21/2021 [place] [place] [place] Generalized anxiety disorder 08/27/2016 Hypertension, essential 05/09/2022 Migraine without aura and without status migrainosus, not intractable 02/22/2015 Obesity, Class III, BMI 40-49.9 (morbid obesity) ([facility]) 11/20/2017 Severe obstructive sleep apnea 04/21/2018 Thyroid nodule 06/30/2014 Well adult exam 08/25/2014 LAst done 03/18/2020 PAST SURGICAL HISTORY Procedure Laterality Date *STRESS TEST PC 09/24/2016 normal ESOPHAGOGASTRODUODENOSCOPY TRANSORAL DIAGNOSTIC 06/08/16 EGD Current Outpatient Medications Medication Sig peg 3350-Electrolytes (GOLYTELY) 236-22.74-6.74 -5.86 gram suspension Take 4,000 mL by mouth one time only for 1 dose. Refer to printed prep instructions from your provider. SUMAtriptan (IMITREX) 100 mg tablet Take 1 tablet by mouth as needed for migraine headache (see administration instructions). losartan (COZAAR) 25 mg tablet Take 1 tablet by mouth once daily. fluticasone (FLONASE) 50 mcg/actuation nasal spray Use 2 Sprays in each nostril once daily. MULTIVITAMIN/IRON/FOLIC ACID (DAILY MULTI ORAL) Take 1 tablet by mouth once daily. ibuprofen (MOTRIN) 200 mg tablet Take 200 mg by mouth every 6 hours as needed. ALLERGIES: Bactrim [Sulfamethoxazole], Amlodipine, Hctz [Thiazides], Lisinopril, Metoprolol, and Codeine PERSONAL HISTORY: Social History Tobacco Use Smoking status: Never Smokeless tobacco: Never Vaping Use Vaping Use: Never used Substance Use Topics Alcohol use: Not Currently Comment: rare Drug use: No FAMILY HISTORY Problem Relation Age of Onset Colon Cancer Paternal Grandmother Cervical Cancer Maternal Grandmother Hypertension Maternal Grandmother Coronary Artery Disease Father 55 Diabetes Maternal Aunt Diabetes Maternal Aunt Hypertension Mother Hypertension Maternal Grandfather Stroke Maternal Grandfather Hypertension Maternal Aunt Hypertension Maternal Uncle Prostate Cancer Paternal Grandfather Thyroid Maternal Aunt Coronary Artery Disease Maternal Aunt 40's REVIEW OF SYMPTOMS: The review of systems data was entered by the nurse and reviewed by me There are no exam notes on file for this visit. PHYSICAL EXAMINATION: General: The patient is 47 year old female, well nourished, well hydrated in no acute distress. The patient is oriented to time, place, and person. VITALS: Blood pressure 134/72, pulse 88, temperature 37.1 ?C (98.7 ?F), height 172.7 cm (5' 8 ), weight 121.5 kg (267 lb 12.8 oz), last menstrual period 04/01/2022, SpO2 97 %. Body mass index is 40.72 kg/m?. Head: Normal cephalic, atraumatic Eyes: pupils are equally round, sclera are clear/anicteric Neck is supple with no tracheal deviation Respiratory: Normal respiratory excursion and pattern. Abdominal exam: benign Extremities: no clubbing, cyanosis or edema. Neuro: non focal Psych: normal mood Assessment IMPRESSION: screening for colon cancer PLAN: I have discussed the above with the patient. I have offered colonoscopy, possible biopsies I have explained the procedure to the patient. I have counseled the patient as to the risks of the procedure, including but not limited to: infection, bleeding, injury to any intrabdominal organs such as liver/spleen, perforation of the GI tract, inability to complete the procedure, complications of anesthesia, etc. - the patient understands. The patient wishes to proceed. I have answered all questions to the patient?s satisfaction and the patient has no further questions. Diagnoses: (Z12.11) Screening for colon cancer I have confirmed and edited as necessary, the PFSH and ROS obtained by others. Consultation requested by Hosea Tucker for an opinion regarding patient's screening for colon cancer. My final recommendations will be communicated back to the requesting physician by way of shared Medical record or letter to requesting physician via US mail. Return to Clinic: The patient will be scheduled at [facility] (more content not included)... [facility] 10-08-2022 Instructions Radha Norris MD - 10/08/2022 3:37 PM EDT Images from the original note were not included. Bowel Preparation Instructions for: Golytely, Nulytely, Trilyte or Colyte (polyethylene glycol 3350 and electrolytes) IF YOU DO NOT FOLLOW THESE DIRECTIONS, YOUR COLONOSCOPY WILL BE CANCELLED. De Jesus Instructions: Your bowel must be empty so that your doctor can clearly view your colon. Follow all of the instructions in this handout EXACTLY as they are written. Do NOT eat any solid food the ENTIRE day before your colonoscopy. Drink only clear liquids. Buy your bowel preparation at least 5 days before your colonoscopy. TRANSPORTATION on the Day of Your Exam A responsible person MUST be present with you at Check In prior to your colonoscopy and REMAIN in the endoscopy area until you are discharged. You are NOT ALLOWED to drive, take a taxi or bus, or leave the Endoscopy Center ALONE. If you do not have a responsible buggy driver (family member or friend) with you to take you home, your exam cannot be done with sedation and will be cancelled. Please bring a list of all of your current medications, including any Over-the Counter medications with you. Medications If you take insulin, diabetic medications or blood thinners such as Coumadin (warfarin), Plavix (clopidogrel), Ticlid (ticlopidine hydrochloride), Agrylin (anagrelide), Xarelto (Rivaroxaban), Pradaxa (Dabigatran), Eliquis (Apixaban), and Effient (Prasugrel). You MUST call the doctors who orders those medicines for instructions on altering the dosage before your colonoscopy. All other medications should be taken the day of the exam with a sip of water including ASPIRIN. Five (5) Days Before Your Colonoscopy Do NOT take medicines that stop diarrhea - such as Imodium, Kaopectate, or Pepto Bismol. Do NOT take fiber supplements - such as Metamucil, Citrucel, or Perdiem. Do NOT take products that contain iron - such as multi-vitamins (the label lists what is in the products). Do NOT take Vitamin E. Buy the prescription bowel preparation solution at your local pharmacy or drugstore pharmacy. 05/2019 Bowel Preparation Instructions for: Golytely, Nulytely, Trilyte or Colyte (polyethylene glycol 3350 and electrolytes) Three (3) Days Before Your Colonoscopy Do NOT eat high-fiber foods - such as popcorn, beans, seeds (flax, sunflower, quinoa), multigrain bread, nuts, salad/vegetables, or fresh and dried fruit. One (1) Day Before Your Colonoscopy Only drink clear liquids the ENTIRE DAY before your colonoscopy. Do NOT eat any solid foods. Drink at least 8 ounces of clear liquids every hour after waking up. The clear liquids you can drink include: Clear Liquid (NO RED LIQUIDS) DO NOT DRINK Gatorade, Pedialyte or Powerade Clear broth or bouillon Coffee or tea (no milk or non-dairy creamer) Carbonated and non-carbonated soft drinks Brian-Aid or other fruit flavored drinks Strained fruit juices (no pulp) Jell-O, popsicles, hard candy Water Alcohol Milk or non-dairy creamers Noodles or vegetables in soup Juice with pulp Liquid you cannot see through Do not use tobacco/vaping products The bowel preparation solution will be consumed in two parts. Mix the solution the evening before your colonoscopy and refrigerate before drinking. You may add the flavor pack that came with the bowel preparation. Do NOT add ice, sugar or any other flavorings to the solution. Part 1 At 6:00 PM - Evening before your colonoscopy Drink an 8-oz glass of bowel preparation every 10 minutes for a total of 8 glasses. You may continue to drink clear liquids until midnight. Part 2 On the day of your colonoscopy you may drink clear liquids up to (three) 3 hours before your procedure. 4 1/2 hours before your colonoscopy Drink an 8-oz glass of bowel preparation every 10 minutes for a total of 8 glasses. Fifteen (15) minutes later, drink an 8-oz glass of clear liquids every 15 minutes for a total of 2 glasses. You may continue to drink clear liquids up to (three) 3 hours before your exam. 2 05/2019 documented in this encounter [facility] 10-08-2022 History of Present illness Narrative HISTORY AND PHYSICAL Jaye Steve 1975 REFERRING PHYSICIAN: Hosea Tucker PA-C CHIEF COMPLAINT: Consult (Screening for colon cancer) HPI: The patient is a 47 year old female referred for endoscopy. Jaye notes irritable bowel type symptoms with occasional loose stools. The patient denies blood in stools, denies chronic abdominal pain, and denies changes in bowel habits. The patient notes no colon cancer in immediate family. The patient has not had previous colonoscopy. PAST MEDICAL HISTORY Diagnosis Date Allergic rhinitis 02/24/2016 Carpal tunnel syndrome, bilateral 05/31/2022 NCS: 05/2022: mild Chronic pain of left knee 03/07/2018 Elevated hemoglobin A1c 03/22/2021 Family history of early CAD 08/27/2016 Family history of thyroid disease 03/22/2021 Fibroid, uterine 09/21/2021 [place] [place] Generalized anxiety disorder 08/27/2016 Hypertension, essential 05/09/2022 Migraine without aura and without status migrainosus, not intractable 02/22/2015 Obesity, Class III, BMI 40-49.9 (morbid obesity) (HCC) 11/20/2017 Severe obstructive sleep apnea 04/21/2018 Thyroid nodule 06/30/2014 Well adult exam 08/25/2014 LAst done 03/18/2020 PAST SURGICAL HISTORY Procedure Laterality Date *STRESS TEST PC 09/24/2016 normal ESOPHAGOGASTRODUODENOSCOPY TRANSORAL DIAGNOSTIC 06/08/16 EGD Current Outpatient Medications Medication Sig peg 3350-Electrolytes (GOLYTELY) 236-22.74-6.74 -5.86 gram suspension Take 4,000 mL by mouth one time only for 1 dose. Refer to printed prep instructions from your provider. SUMAtriptan (IMITREX) 100 mg tablet Take 1 tablet by mouth as needed for migraine headache (see administration instructions). losartan (COZAAR) 25 mg tablet Take 1 tablet by mouth once daily. fluticasone (FLONASE) 50 mcg/actuation nasal spray Use 2 Sprays in each nostril once daily. MULTIVITAMIN/IRON/FOLIC ACID (DAILY MULTI ORAL) Take 1 tablet by mouth once daily. ibuprofen (MOTRIN) 200 mg tablet Take 200 mg by mouth every 6 hours as needed. ALLERGIES: Bactrim [Sulfamethoxazole], Amlodipine, Hctz [Thiazides], Lisinopril, Metoprolol, and Codeine PERSONAL HISTORY: Social History Tobacco Use Smoking status: Never Smokeless tobacco: Never Vaping Use Vaping Use: Never used Substance Use Topics Alcohol use: Not Currently Comment: rare Drug use: No FAMILY HISTORY Problem Relation Age of Onset Colon Cancer Paternal Grandmother Cervical Cancer Maternal Grandmother Hypertension Maternal Grandmother Coronary Artery Disease Father 55 Diabetes Maternal Aunt Diabetes Maternal Aunt Hypertension Mother Hypertension Maternal Grandfather Stroke Maternal Grandfather Hypertension Maternal Aunt Hypertension Maternal Uncle Prostate Cancer Paternal Grandfather Thyroid Maternal Aunt Coronary Artery Disease Maternal Aunt 40's REVIEW OF SYMPTOMS: The review of systems data was entered by the nurse and reviewed by me There are no exam notes on file for this visit. PHYSICAL EXAMINATION: General: The patient is 47 year old female, well nourished, well hydrated in no acute distress. The patient is oriented to time, place, and person. VITALS: Blood pressure 134/72, pulse 88, temperature 37.1 C (98.7 F), height 172.7 cm (5' 8 ), weight 121.5 kg (267 lb 12.8 oz), last menstrual period 04/01/2022, SpO2 97 %. Body mass index is 40.72 kg/m . Head: Normal cephalic, atraumatic Eyes: pupils are equally round, sclera are clear/anicteric Neck is supple with no tracheal deviation Respiratory: Normal respiratory excursion and pattern. Abdominal exam: benign Extremities: no clubbing, cyanosis or edema. Neuro: non focal Psych: normal mood Assessment IMPRESSION: screening for colon cancer PLAN: I have discussed the above with the patient. I have offered colonoscopy, possible biopsies I have explained the procedure to the patient. I have counseled the patient as to the risks of the procedure, including but not limited to: infection, bleeding, injury to any intrabdominal organs such as liver/spleen, perforation of the GI tract, inability to complete the procedure, complications of anesthesia, etc. - the patient understands. The patient wishes to proceed. I have answered all questions to the patient s satisfaction and the patient has no further questions. Diagnoses: (Z12.11) Screening for colon cancer I have confirmed and edited as necessary, the PFSH and ROS obtained by others. Consultation requested by Hosea Tucker for an opinion regarding patient's screening for colon cancer. My final recommendations will be communicated back to the requesting physician by way of shared Medical record or letter to requesting physician via US mail. Return to Clinic: The patient will be scheduled at [facility] for screening colonoscopy. Medical Decision Making: Risk: Low: Low risk from testing/treatment Medical Decision Making Level: 2 - Straightforward Radha Norris MD documented in this encounter [facility] 10-05-2022 Miscellaneous Notes Left message of same on pt's vm. Edita Saldana LPN Let patient know that her labs are all normal. Hosea Tucker PA-C documented in this encounter [facility] 10-04-2022 Note HNO ID: [id number] Author: Hosea Tucker PA-C Service: ? Author Type: Physician [employer] Type: Progress Notes Filed: 10/04/2022 8:51 AM Note Text: Chief Complaint Patient presents with: 6 Month Exam HPI Jaye Patterson is a 47 year old female who presents here today for Chronic Medical Conditions.. Patient with hx of HTN, migraine, ALISIA, elevated hgb a1c, obesity, ALLEN, and those as below. Patient has been on multiple HTN medications over the past 4 months. All resulting in some sort of SE. She is currently on losartan for the past 1-2 weeks. Has noted leg cramps but only with exercise. Bp okay. Otherwise no concerns. Past medical history, appointments, medications, allergies reviewed. Previous Medical History PAST MEDICAL HISTORY Diagnosis Date Allergic rhinitis 02/24/2016 Carpal tunnel syndrome, bilateral 05/31/2022 NCS: 05/2022: mild Chronic pain of left knee 03/07/2018 Elevated hemoglobin A1c 03/22/2021 Family history of early CAD 08/27/2016 Family history of thyroid disease 03/22/2021 Fibroid, uterine 09/21/2021 [place] [place] [place] Generalized anxiety disorder 08/27/2016 Hypertension, essential 05/09/2022 Migraine without aura and without status migrainosus, not intractable 02/22/2015 Obesity, Class III, BMI 40-49.9 (morbid obesity) ([facility]) 11/20/2017 Severe obstructive sleep apnea 04/21/2018 Thyroid nodule 06/30/2014 Well adult exam 08/25/2014 LAst done 03/18/2020 Previous Surgical History PAST SURGICAL HISTORY Procedure Laterality Date *STRESS TEST PC 09/24/2016 normal ESOPHAGOGASTRODUODENOSCOPY TRANSORAL DIAGNOSTIC 06/08/16 EGD Family History FAMILY HISTORY Problem Relation Age of Onset Colon Cancer Paternal Grandmother Cervical Cancer Maternal Grandmother Hypertension Maternal Grandmother Coronary Artery Disease Father 55 Diabetes Maternal Aunt Diabetes Maternal Aunt Hypertension Mother Hypertension Maternal Grandfather Stroke Maternal Grandfather Hypertension Maternal Aunt Hypertension Maternal Uncle Prostate Cancer Paternal Grandfather Thyroid Maternal Aunt Coronary Artery Disease Maternal Aunt 40's Patient Allergies ALLERGIES Allergen Reactions Bactrim [Sulfametho* Hives, Other: See Comments Fever, Chills, rash, low BP Amlodipine Swelling Leg swelling Hctz [Thiazides] Intolerance Dizziness and chest heaviness Lisinopril Cough cough Metoprolol Intolerance Mild Chest pressure Codeine Other: See Comments Chest pain Current Medications Current Outpatient Medications on File Prior to Visit Medication Sig losartan (COZAAR) 25 mg tablet Take 1 tablet by mouth once daily. fluticasone (FLONASE) 50 mcg/actuation nasal spray Use 2 Sprays in each nostril once daily. SUMAtriptan (IMITREX) 100 mg tablet Take 1 tablet by mouth as needed for Migraine Headache (see administration instructions). MULTIVITAMIN/IRON/FOLIC ACID (DAILY MULTI ORAL) Take 1 tablet by mouth once daily. ibuprofen (MOTRIN) 200 mg tablet Take 200 mg by mouth every 6 hours as needed. No current facility-administered medications on file prior to visit. Social History Social History Tobacco Use Smoking status: Never Smokeless tobacco: Never Substance Use Topics Alcohol use: Yes Comment: rare Drug use: No Review of Symptoms REVIEW OF SYSTEMS GENERAL: No weight loss, malaise or fevers NECK: Negative for lumps, goiter, pain and significant neck swelling RESPIRATORY: Negative for cough, hemoptysis, wheezing, COPD, dyspnea or shortness of breath CARDIOVASCULAR: Negative for chest pain, leg swelling, CHF or palpitations NEURO: No history of headaches, syncope, paralysis, seizures or tremors EXAM: BP 124/76 (BP Site: Left Arm, BP Position: Sitting, BP Cuff Size: Large Adult) Pulse 70 Temp 36.4 ?C (97.5 ?F) Resp 18 Wt 121.1 kg (267 lb) LMP 04/01/2022 (Approximate) BMI 42.13 kg/m? Last 3 Encounter Wt Readings: Date: Wt: 10/04/2022 121.1 kg (267 lb) 09/20/2022 122 kg (269 lb) 08/23/2022 127 kg (280 lb) General Appearance: Well appearing, alert, in no acute distress, well-hydrated, well nourished.. Neck: Supple, no adenopathy; thyroid symmetric, normal size, no bruits. Lungs: Lungs clear to auscultation. No wheezing, rhonchi, rales.. Heart: RRR without murmur, gallop, or rubs. No ectopy. Extremities: No deformities, edema, skin discoloration, clubbing or cyanosis. Good capillary refill. . Peripheral Pulses: Normal. Health Maintenance List BP CONTROLLED (<130/80) Never done MAMMOGRAM Never done COLORECTAL CANCER SCREENING Never done DEPRESSION ASSESSMENT due on 07/01/2022 ANNUAL PCP TEAM CHRONIC DISEASE VISIT due on 09/21/2023 PAP TESTING due on 01/24/2025 HPV TESTING due on 01/24/2025 DIABETES SCREEN due on 07/19/2025 LIPID SCREEN due on 04/05/2027 DTAP,TDAP,TD(3 - Td or Tdap) due on 03/18/2030 INFLUENZA Completed COVID-19 VACCINE Completed HEPATITIS B Discontinued HEPATITIS C (more content not included)... [facility] 10-04-2022 History of Present illness Narrative Chief Complaint Patient presents with: 6 Month Exam HPI Jaye Patterson is a 47 year old female who presents here today for Chronic Medical Conditions.. Patient with hx of HTN, migraine, ALISIA, elevated hgb a1c, obesity, ALLEN, and those as below. Patient has been on multiple HTN medications over the past 4 months. All resulting in some sort of SE. She is currently on losartan for the past 1-2 weeks. Has noted leg cramps but only with exercise. Bp okay. Otherwise no concerns. Past medical history, appointments, medications, allergies reviewed. Previous Medical History PAST MEDICAL HISTORY Diagnosis Date Allergic rhinitis 02/24/2016 Carpal tunnel syndrome, bilateral 05/31/2022 NCS: 05/2022: mild Chronic pain of left knee 03/07/2018 Elevated hemoglobin A1c 03/22/2021 Family history of early CAD 08/27/2016 Family history of thyroid disease 03/22/2021 Fibroid, uterine 09/21/2021 [place] [place] [place] Generalized anxiety disorder 08/27/2016 Hypertension, essential 05/09/2022 Migraine without aura and without status migrainosus, not intractable 02/22/2015 Obesity, Class III, BMI 40-49.9 (morbid obesity) ([facility]) 11/20/2017 Severe obstructive sleep apnea 04/21/2018 Thyroid nodule 06/30/2014 Well adult exam 08/25/2014 LAst done 03/18/2020 Previous Surgical History PAST SURGICAL HISTORY Procedure Laterality Date *STRESS TEST PC 09/24/2016 normal ESOPHAGOGASTRODUODENOSCOPY TRANSORAL DIAGNOSTIC 06/08/16 EGD Family History FAMILY HISTORY Problem Relation Age of Onset Colon Cancer Paternal Grandmother Cervical Cancer Maternal Grandmother Hypertension Maternal Grandmother Coronary Artery Disease Father 55 Diabetes Maternal Aunt Diabetes Maternal Aunt Hypertension Mother Hypertension Maternal Grandfather Stroke Maternal Grandfather Hypertension Maternal Aunt Hypertension Maternal Uncle Prostate Cancer Paternal Grandfather Thyroid Maternal Aunt Coronary Artery Disease Maternal Aunt 40's Patient Allergies ALLERGIES Allergen Reactions Bactrim [Sulfametho* Hives, Other: See Comments Fever, Chills, rash, low BP Amlodipine Swelling Leg swelling Hctz [Thiazides] Intolerance Dizziness and chest heaviness Lisinopril Cough cough Metoprolol Intolerance Mild Chest pressure Codeine Other: See Comments Chest pain Current Medications Current Outpatient Medications on File Prior to Visit Medication Sig losartan (COZAAR) 25 mg tablet Take 1 tablet by mouth once daily. fluticasone (FLONASE) 50 mcg/actuation nasal spray Use 2 Sprays in each nostril once daily. SUMAtriptan (IMITREX) 100 mg tablet Take 1 tablet by mouth as needed for Migraine Headache (see administration instructions). MULTIVITAMIN/IRON/FOLIC ACID (DAILY MULTI ORAL) Take 1 tablet by mouth once daily. ibuprofen (MOTRIN) 200 mg tablet Take 200 mg by mouth every 6 hours as needed. No current facility-administered medications on file prior to visit. Social History Social History Tobacco Use Smoking status: Never Smokeless tobacco: Never Substance Use Topics Alcohol use: Yes Comment: rare Drug use: No Review of Symptoms REVIEW OF SYSTEMS GENERAL: No weight loss, malaise or fevers NECK: Negative for lumps, goiter, pain and significant neck swelling RESPIRATORY: Negative for cough, hemoptysis, wheezing, COPD, dyspnea or shortness of breath CARDIOVASCULAR: Negative for chest pain, leg swelling, CHF or palpitations NEURO: No history of headaches, syncope, paralysis, seizures or tremors EXAM: BP 124/76 (BP Site: Left Arm, BP Position: Sitting, BP Cuff Size: Large Adult) Pulse 70 Temp 36.4 C (97.5 F) Resp 18 Wt 121.1 kg (267 lb) LMP 04/01/2022 (Approximate) BMI 42.13 kg/m Last 3 Encounter Wt Readings: Date: Wt: 10/04/2022 121.1 kg (267 lb) 09/20/2022 122 kg (269 lb) 08/23/2022 127 kg (280 lb) General Appearance: Well appearing, alert, in no acute distress, well-hydrated, well nourished.. Neck: Supple, no adenopathy; thyroid symmetric, normal size, no bruits. Lungs: Lungs clear to auscultation. No wheezing, rhonchi, rales.. Heart: RRR without murmur, gallop, or rubs. No ectopy. Extremities: No deformities, edema, skin discoloration, clubbing or cyanosis. Good capillary refill. . Peripheral Pulses: Normal. Health Maintenance List BP CONTROLLED (<130/80) Never done MAMMOGRAM Never done COLORECTAL CANCER SCREENING Never done DEPRESSION ASSESSMENT due on 07/01/2022 ANNUAL PCP TEAM CHRONIC DISEASE VISIT due on 09/21/2023 PAP TESTING due on 01/24/2025 HPV TESTING due on 01/24/2025 DIABETES SCREEN due on 07/19/2025 LIPID SCREEN due on 04/05/2027 DTAP,TDAP,TD(3 - Td or Tdap) due on 03/18/2030 INFLUENZA Completed COVID-19 VACCINE Completed HEPATITIS B Discontinued HEPATITIS C SCREENING Discontinued HIV SCREENING Discontinued Data reviewed N/a ASSESSMENT/PLAN: 1. Hypertension, essential - ICD9: 401.9, ICD10: I10 (primary diagnosis) - good control - Continue current medication(s) - Recommended regular aerobic exercise. - Recommend home blood pressure monitoring, to bring results in on next visit - Goal of BP <130/80 - COMP METABOLIC PANEL - LIPID PANEL, NONFASTING - HGB A1C 2. Migraine without aura and without status migrainosus, not intractable - ICD9: 346.10, ICD10: G43.009 stable 3. Severe obstructive sleep apnea - ICD9: 327.23, ICD10: G47.33 Cont with sleep med 4. Family history of thyroid disease - ICD9: V18.19, ICD10: Z83.49 5. Elevated hemoglobin A1c - ICD9: 790.29, ICD10: R73.09 Await labs. 6. Generalized anxiety disorder - ICD9: 300.02, ICD10: F41.1 stable 7. Obesity, Class III, BMI 40-49.9 (morbid obesity) (HCC) - ICD9: 278.01, ICD10: E66.01 Weight decreasing - Behavioral intervention 8. Family history of early CAD - ICD9: V17.3, ICD10: Z82.49 - LIPID PANEL, NONFASTING 9. Primary hypertension - ICD9: 401.9, ICD10: I10 - LOSARTAN 25 MG TABLET 10. Screening for colon cancer - ICD9: V76.51, ICD10: Z12.11 - CONSULT TO GENERAL SURGERY Hosea Tucker PA-C documented in this encounter [facility] 09-20-2022 Note HNO ID: [id number] Author: Lindsay Herrera APRN.AMPOULE EXAMINER Service: ? Author Type: Nurse Practitioner Type: Progress Notes Filed: 09/20/2022 8:09 AM Note Text: Chief Complaint Patient presents with: Follow Up HPI Jaye Patterson is a 47 year old female who presents here today for Above Complaints.. Patient presents for BP check. Patient was discontinued on HCTZ last month and started on metoprolol. Patient states that occasionally she has some chest pressure but is otherwise feeling well and tolerating medication well. Patient states pressure is intermittent. Patient will keep a log of symptoms and her BP at time of episodes and bring this to her follow up appointment in 2 weeks with Hosea. Past medical history, appointments, medications, allergies reviewed. Previous Medical History PAST MEDICAL HISTORY Diagnosis Date Allergic rhinitis 02/24/2016 Carpal tunnel syndrome, bilateral 05/31/2022 NCS: 05/2022: mild Chronic pain of left knee 03/07/2018 Elevated hemoglobin A1c 03/22/2021 Family history of early CAD 08/27/2016 Family history of thyroid disease 03/22/2021 Fibroid, uterine 09/21/2021 [place] [place] Generalized anxiety disorder 08/27/2016 Hypertension, essential 05/09/2022 Migraine without aura and without status migrainosus, not intractable 02/22/2015 Obesity, Class III, BMI 40-49.9 (morbid obesity) ([facility]) 11/20/2017 Severe obstructive sleep apnea 04/21/2018 Thyroid nodule 06/30/2014 Well adult exam 08/25/2014 LAst done 03/18/2020 Previous Surgical History PAST SURGICAL HISTORY Procedure Laterality Date *STRESS TEST PC 09/24/2016 normal ESOPHAGOGASTRODUODENOSCOPY TRANSORAL DIAGNOSTIC 06/08/16 EGD Family History FAMILY HISTORY Problem Relation Age of Onset Colon Cancer Paternal Grandmother Cervical Cancer Maternal Grandmother Hypertension Maternal Grandmother Coronary Artery Disease Father 55 Diabetes Maternal Aunt Diabetes Maternal Aunt Hypertension Mother Hypertension Maternal Grandfather Stroke Maternal Grandfather Hypertension Maternal Aunt Hypertension Maternal Uncle Prostate Cancer Paternal Grandfather Thyroid Maternal Aunt Coronary Artery Disease Maternal Aunt 40's Patient Allergies ALLERGIES Allergen Reactions Bactrim [Sulfametho* Hives, Other: See Comments Fever, Chills, rash, low BP Codeine Other: See Comments Chest pain Current Medications Current Outpatient Medications on File Prior to Visit Medication Sig metoprolol succinate ER (TOPROL XL) 25 mg 24 hr tablet TAKE 1 TABLET BY MOUTH EVERY DAY hydroCHLOROthiazide (HYDRODIURIL, ESIDRIX) 25 mg tablet TAKE 1 TABLET BY MOUTH EVERY DAY fluticasone (FLONASE) 50 mcg/actuation nasal spray Use 2 Sprays in each nostril once daily. SUMAtriptan (IMITREX) 100 mg tablet Take 1 tablet by mouth as needed for Migraine Headache (see administration instructions). MULTIVITAMIN/IRON/FOLIC ACID (DAILY MULTI ORAL) Take 1 tablet by mouth once daily. ibuprofen (MOTRIN) 200 mg tablet Take 200 mg by mouth every 6 hours as needed. No current facility-administered medications on file prior to visit. Social History Social History Tobacco Use Smoking status: Never Smokeless tobacco: Never Substance Use Topics Alcohol use: Yes Comment: rare Drug use: No Review of Symptoms REVIEW OF SYSTEMS SEE HPI EXAM: BP 130/76 Pulse 78 Resp 14 Wt 122 kg (269 lb) LMP 04/01/2022 (Approximate) SpO2 98% BMI 42.45 kg/m? General Appearance: Well appearing, alert, in no acute distress, well-hydrated, well nourished.. Health Maintenance List BP CONTROLLED (<130/80) Never done MAMMOGRAM Never done COLORECTAL CANCER SCREENING Never done DEPRESSION ASSESSMENT due on 07/01/2022 ANNUAL PCP TEAM CHRONIC DISEASE VISIT due on 09/21/2023 PAP TESTING due on 01/24/2025 HPV TESTING due on 01/24/2025 DIABETES SCREEN due on 07/19/2025 LIPID SCREEN due on 04/05/2027 DTAP,TDAP,TD(3 - Td or Tdap) due on 03/18/2030 INFLUENZA Completed COVID-19 VACCINE Completed HEPATITIS B Discontinued HEPATITIS C SCREENING Discontinued HIV SCREENING Discontinued ASSESSMENT/PLAN: 1. Primary hypertension - ICD9: 401.9, ICD10: I10 - good control - Continue current medication(s) - Begin losartan(Cozaar) - Encouraged dietary sodium restriction/DASH diet - Recommended regular aerobic exercise. - Recommend home blood pressure monitoring, to bring results in on next visit - Discussed need and benefit for weight loss. - Goal of BP <130/80 - ECG COMPLETE - LOSARTAN 25 MG TABLET Lindsay Herrera APRN.CNP [facility] 09-20-2022 Instructions Lindsay Herrera APRN.CNP - 09/20/2022 8:09 AM EDT Stop metoprolol Start losartan Follow up with Hosea as scheduled documented in this encounter [facility] 09-20-2022 History of Present illness Narrative Chief Complaint Patient presents with: Follow Up HPI Jaye Patterson is a 47 year old female who presents here today for Above Complaints.. Patient presents for BP check. Patient was discontinued on HCTZ last month and started on metoprolol. Patient states that occasionally she has some chest pressure but is otherwise feeling well and tolerating medication well. Patient states pressure is intermittent. Patient will keep a log of symptoms and her BP at time of episodes and bring this to her follow up appointment in 2 weeks with Hosea. Past medical history, appointments, medications, allergies reviewed. Previous Medical History PAST MEDICAL HISTORY Diagnosis Date Allergic rhinitis 02/24/2016 Carpal tunnel syndrome, bilateral 05/31/2022 NCS: 05/2022: mild Chronic pain of left knee 03/07/2018 Elevated hemoglobin A1c 03/22/2021 Family history of early CAD 08/27/2016 Family history of thyroid disease 03/22/2021 Fibroid, uterine 09/21/2021 [place] [place] Generalized anxiety disorder 08/27/2016 Hypertension, essential 05/09/2022 Migraine without aura and without status migrainosus, not intractable 02/22/2015 Obesity, Class III, BMI 40-49.9 (morbid obesity) ([facility]) 11/20/2017 Severe obstructive sleep apnea 04/21/2018 Thyroid nodule 06/30/2014 Well adult exam 08/25/2014 LAst done 03/18/2020 Previous Surgical History PAST SURGICAL HISTORY Procedure Laterality Date *STRESS TEST PC 09/24/2016 normal ESOPHAGOGASTRODUODENOSCOPY TRANSORAL DIAGNOSTIC 06/08/16 EGD Family History FAMILY HISTORY Problem Relation Age of Onset Colon Cancer Paternal Grandmother Cervical Cancer Maternal Grandmother Hypertension Maternal Grandmother Coronary Artery Disease Father 55 Diabetes Maternal Aunt Diabetes Maternal Aunt Hypertension Mother Hypertension Maternal Grandfather Stroke Maternal Grandfather Hypertension Maternal Aunt Hypertension Maternal Uncle Prostate Cancer Paternal Grandfather Thyroid Maternal Aunt Coronary Artery Disease Maternal Aunt 40's Patient Allergies ALLERGIES Allergen Reactions Bactrim [Sulfametho* Hives, Other: See Comments Fever, Chills, rash, low BP Codeine Other: See Comments Chest pain Current Medications Current Outpatient Medications on File Prior to Visit Medication Sig metoprolol succinate ER (TOPROL XL) 25 mg 24 hr tablet TAKE 1 TABLET BY MOUTH EVERY DAY hydroCHLOROthiazide (HYDRODIURIL, ESIDRIX) 25 mg tablet TAKE 1 TABLET BY MOUTH EVERY DAY fluticasone (FLONASE) 50 mcg/actuation nasal spray Use 2 Sprays in each nostril once daily. SUMAtriptan (IMITREX) 100 mg tablet Take 1 tablet by mouth as needed for Migraine Headache (see administration instructions). MULTIVITAMIN/IRON/FOLIC ACID (DAILY MULTI ORAL) Take 1 tablet by mouth once daily. ibuprofen (MOTRIN) 200 mg tablet Take 200 mg by mouth every 6 hours as needed. No current facility-administered medications on file prior to visit. Social History Social History Tobacco Use Smoking status: Never Smokeless tobacco: Never Substance Use Topics Alcohol use: Yes Comment: rare Drug use: No Review of Symptoms REVIEW OF SYSTEMS SEE HPI EXAM: BP 130/76 Pulse 78 Resp 14 Wt 122 kg (269 lb) LMP 04/01/2022 (Approximate) SpO2 98% BMI 42.45 kg/m General Appearance: Well appearing, alert, in no acute distress, well-hydrated, well nourished.. Health Maintenance List BP CONTROLLED (<130/80) Never done MAMMOGRAM Never done COLORECTAL CANCER SCREENING Never done DEPRESSION ASSESSMENT due on 07/01/2022 ANNUAL PCP TEAM CHRONIC DISEASE VISIT due on 09/21/2023 PAP TESTING due on 01/24/2025 HPV TESTING due on 01/24/2025 DIABETES SCREEN due on 07/19/2025 LIPID SCREEN due on 04/05/2027 DTAP,TDAP,TD(3 - Td or Tdap) due on 03/18/2030 INFLUENZA Completed COVID-19 VACCINE Completed HEPATITIS B Discontinued HEPATITIS C SCREENING Discontinued HIV SCREENING Discontinued ASSESSMENT/PLAN: 1. Primary hypertension - ICD9: 401.9, ICD10: I10 - good control - Continue current medication(s) - Begin losartan(Cozaar) - Encouraged dietary sodium restriction/DASH diet - Recommended regular aerobic exercise. - Recommend home blood pressure monitoring, to bring results in on next visit - Discussed need and benefit for weight loss. - Goal of BP <130/80 - ECG COMPLETE - LOSARTAN 25 MG TABLET Lindsay Herrera APRN.CNP documented in this encounter [facility] 09-14-2022 Miscellaneous Notes The following approved medication requests have been transmitted electronically. Requested Prescriptions Signed Prescriptions Disp Refills metoprolol succinate ER (TOPROL XL) 25 mg 24 hr tablet 30 tablet 0 Sig: TAKE 1 TABLET BY MOUTH EVERY DAY Authorizing Provider: CALVIN VEGA MD Last office visit: 08/23/22 F/u scheduled: 08/31/22 Suha Osuna Ma documented in this encounter [facility] 09-11-2022 Note HNO ID: [id number] Author: Aydee Eckert Jr., MD Service: ? Author Type: Physician Type: Progress Notes Filed: 09/11/2022 11:28 AM Note Text: [facility] Follow up/ Established patient visit Date of last visit : 03/19/22 Interval history : Patient is a 46-year-old female who presented to the sleep clinic in 2021 where she mentioned that she had a previous sleep study in 2018 that showed AHI of 30.0 but she never followed up at that time due to cost of further testing for PAP titration. She has multiple nighttime awakenings and waking up with coughing and gasping for air. PAP therapy along with other options to treat sleep apnea were discussed in detail and the patient agreed with going ahead with PAP therapy at that point. She got the machine in May 2022. Here for follow up for obstructive sleep apnea. SLEEP APNEA Sleep apnea type : ALISIA, Most Recent Apnea-Hypopnea Index (AHI): 30.0 Treatment : PAP therapy DME: [facility] PAP History: Uses AutoPAP for 7 hours per night, 7 nights per week. Current PAP settin-20 cm H2O. Difficulties with AutoPAP: None Reviewed objective PAP compliance data: Yes Mask type: nasal mask Mask issues: None Uses chin strap: No Uses humidity: Yes There is a perceived benefit by the patient: yes Observers report abolition of snoring with AutoPAP use. SLEEP HYGIENE QUESTIONS: Bedtime : 9-9:30 pm Wake up Time : 5:30 to 6 am Time it takes to fall sleep : a couple of minutes Number of times patient wakes up per night : None. Estimated total sleep time ( in a 24 hour period of time) : 7 Naps : No PATIENT-ENTERED QUESTIONNAIRE SLEEP SCORES Sleep Questions 03/18/2022 Reason for visit: Sleep apnea, Difficulty falling or staying asleep or poor sleep quality Average hours slept in 24 hours: 8 Accidents or near accidents due to drowsy drivin [place] Sleepiness Scale 03/18/2022 Score 7 (No daytime sleepiness) PROMIS CAT Sleep Disturbance 03/18/2022 PROMIS Sleep Disturbance T-Score 56 (mild) Insomnia Severity Index 03/18/2022 Score 10 PHQ-9 03/18/2022 Score 5 PROMIS Global Health - (T-Scores - the mean of general population = 50. Five points is a clinically meaningful difference.) 03/18/2022 04/04/2022 06/13/2022 Physical T-Score 47.7 54.1 50.8 Mental T-Score 43.5 53.3 56 SLEEP RELATED ROS Review of Systems ALLERGIES Allergen Reactions Bactrim [Sulfametho* Hives, Other: See Comments Fever, Chills, rash, low BP Codeine Other: See Comments Chest pain CURRENT MEDICATIONS: hydroCHLOROthiazide (HYDRODIURIL, ESIDRIX) 25 mg tablet TAKE 1 TABLET BY MOUTH EVERY DAY metoprolol succinate ER (TOPROL XL) 25 mg 24 hr tablet Take 1 tablet by mouth once daily. fluticasone (FLONASE) 50 mcg/actuation nasal spray Use 2 Sprays in each nostril once daily. SUMAtriptan (IMITREX) 100 mg tablet Take 1 tablet by mouth as needed for Migraine Headache (see administration instructions). MULTIVITAMIN/IRON/FOLIC ACID (DAILY MULTI ORAL) Take 1 tablet by mouth once daily. ibuprofen (MOTRIN) 200 mg tablet Take 200 mg by mouth every 6 hours as needed. PHYSICAL EXAMINATION: Visit was conducted virtually. Patient was able to engage in a meaningful conversation and did not have any restriction. General appearance: NAD Mental status: Alert and oriented. Able to provide own history Neck: no visible goiter Constitutional: WNL Pulm: Normal work of breathing Skin: No visible rashes on exposed skin Eyes: conjugate, no obvious ptosis ENT : Nose and mouth midline Neuro: No focal deficits observed IMPRESSION: Alisia on cpap (primary encounter diagnosis) Patient is a 47-year-old female with history of obstructive sleep apnea who was started on Pap therapy back in May 2022. She is currently on an AutoPap with pressures of 5 to 20 cm H2O and 95th percentile of her pressures are 12.6 cm H2O. She is tolerating the therapy well and the residual AHI is 0.9. She does not have any issues with the mask or the therapy. Initially it took her some time to get used to wearing the mask but now she feels all right and much refreshed during the day. We encouraged her to continue with the therapy as this is working great for her subjectively and objectively. Also she has lost 20 pounds of weight since her last visit intentionally to get on the healthier side. Mentioned that this will also help with the severity of her sleep apnea and she herself overall feels way better. We will plan ahead and meeting her in 1 year or sooner if any problems arise. PLAN: - Continue Auto CPAP at 5-20 cmH2O. - Remember to clean your mask and equipment regularly, as directed. - You should be eligible for new supplies approximately every 3-6 months, depending on your insurance coverage. Contact your Durable Medical Equipment (DME) company for new supplies as needed. - Follow up in 1 year. [facility] (more content not included)... [facility] 09-11-2022 Instructions Nicky Carmona MD - 09/11/2022 11:11 AM EDT Your most recent body mass index (BMI) that we have on record is 44.18 kg/m2. Obstructive sleep apnea (ALISIA) worsens with an increase in weight; reduction in weight may improve or resolve your ALISIA. If you are not already seeking treatment, there are resources available at the [facility] such as a nutrition consultation or referral to weight management programs at our [facility]. Please let us know if we can assist with a referral. - Continue Auto CPAP at 5-20 cmH2O. - Remember to clean your mask and equipment regularly, as directed. - You should be eligible for new supplies approximately every 3-6 months, depending on your insurance coverage. Contact your Durable Medical Equipment (DME) company for new supplies as needed. - Follow up in 1 year. [facility] REQUIREMENTS: - Your insurance requires a [id number] follow up visit within a 31-90 day period after starting CPAP. - Your insurance requires compliance with CPAP, which is at least 4 hours per night for 70% of the time. This must be done over a 30 day period and must occur within the initial 31-90 day period after starting CPAP. - Your insurance also requires at least yearly follow ups to continue to pay for CPAP supplies. documented in this encounter [facility] 09-11-2022 History of Present illness Narrative Images from the original note were not included. [facility] Follow up/ Established patient visit Date of last visit : 03/19/22 Interval history : Patient is a 46-year-old female who presented to the sleep clinic in 2021 where she mentioned that she had a previous sleep study in 2019 that showed AHI of 30.0 but she never followed up at that time due to cost of further testing for PAP titration. She has multiple nighttime awakenings and waking up with coughing and gasping for air. PAP therapy along with other options to treat sleep apnea were discussed in detail and the patient agreed with going ahead with PAP therapy at that point. She got the machine in May 2022. Here for follow up for obstructive sleep apnea. SLEEP APNEA Sleep apnea type : ALISIA, Most Recent Apnea-Hypopnea Index (AHI): 30.0 Treatment : PAP therapy DME: [facility] PAP History: Uses AutoPAP for 7 hours per night, 7 nights per week. Current PAP settin-20 cm H2O. Difficulties with AutoPAP: None Reviewed objective PAP compliance data: Yes Mask type: nasal mask Mask issues: None Uses chin strap: No Uses humidity: Yes There is a perceived benefit by the patient: yes Observers report abolition of snoring with AutoPAP use. SLEEP HYGIENE QUESTIONS: Bedtime : 9-9:30 pm Wake up Time : 5:30 to 6 am Time it takes to fall sleep : a couple of minutes Number of times patient wakes up per night : None. Estimated total sleep time ( in a 24 hour period of time) : 7 Naps : No PATIENT-ENTERED QUESTIONNAIRE SLEEP SCORES Sleep Questions 03/18/2022 Reason for visit: Sleep apnea, Difficulty falling or staying asleep or poor sleep quality Average hours slept in 24 hours: 8 Accidents or near accidents due to drowsy drivin [place] Sleepiness Scale 03/18/2022 Score 7 (No daytime sleepiness) PROMIS CAT Sleep Disturbance 03/18/2022 PROMIS Sleep Disturbance T-Score 56 (mild) Insomnia Severity Index 03/18/2022 Score 10 PHQ-9 03/18/2022 Score 5 PROMIS Global Health - (T-Scores - the mean of general population = 50. Five points is a clinically meaningful difference.) 03/18/2022 04/04/2022 06/13/2022 Physical T-Score 47.7 54.1 50.8 Mental T-Score 43.5 53.3 56 SLEEP RELATED ROS Review of Systems ALLERGIES Allergen Reactions Bactrim [Sulfametho* Hives, Other: See Comments Fever, Chills, rash, low BP Codeine Other: See Comments Chest pain CURRENT MEDICATIONS: hydroCHLOROthiazide (HYDRODIURIL, ESIDRIX) 25 mg tablet TAKE 1 TABLET BY MOUTH EVERY DAY metoprolol succinate ER (TOPROL XL) 25 mg 24 hr tablet Take 1 tablet by mouth once daily. fluticasone (FLONASE) 50 mcg/actuation nasal spray Use 2 Sprays in each nostril once daily. SUMAtriptan (IMITREX) 100 mg tablet Take 1 tablet by mouth as needed for Migraine Headache (see administration instructions). MULTIVITAMIN/IRON/FOLIC ACID (DAILY MULTI ORAL) Take 1 tablet by mouth once daily. ibuprofen (MOTRIN) 200 mg tablet Take 200 mg by mouth every 6 hours as needed. PHYSICAL EXAMINATION: Visit was conducted virtually. Patient was able to engage in a meaningful conversation and did not have any restriction. General appearance: NAD Mental status: Alert and oriented. Able to provide own history Neck: no visible goiter Constitutional: WNL Pulm: Normal work of breathing Skin: No visible rashes on exposed skin Eyes: conjugate, no obvious ptosis ENT : Nose and mouth midline Neuro: No focal deficits observed IMPRESSION: Alisia on cpap (primary encounter diagnosis) Patient is a 47-year-old female with history of obstructive sleep apnea who was started on Pap therapy back in May 2022. She is currently on an AutoPap with pressures of 5 to 20 cm H2O and 95th percentile of her pressures are 12.6 cm H2O. She is tolerating the therapy well and the residual AHI is 0.9. She does not have any issues with the mask or the therapy. Initially it took her some time to get used to wearing the mask but now she feels all right and much refreshed during the day. We encouraged her to continue with the therapy as this is working great for her subjectively and objectively. Also she has lost 20 pounds of weight since her last visit intentionally to get on the healthier side. Mentioned that this will also help with the severity of her sleep apnea and she herself overall feels way better. We will plan ahead and meeting her in 1 year or sooner if any problems arise. PLAN: - Continue Auto CPAP at 5-20 cmH2O. - Remember to clean your mask and equipment regularly, as directed. - You should be eligible for new supplies approximately every 3-6 months, depending on your insurance coverage. Contact your Durable Medical Equipment (DME) company for new supplies as needed. - Follow up in 1 year. [facility] REQUIREMENTS: - Your insurance requires a [id number] follow up visit within a 31-90 day period after starting CPAP. - Your insurance requires compliance with CPAP, which is at least 4 hours per night for 70% of the time. This must be done over a 30 day period and must occur within the initial 31-90 day period after starting CPAP. - Your insurance also requires at least yearly follow ups to continue to pay for CPAP supplies. Nicky Carmona MD [facility] STAFF PHYSICIAN NOTE OF PERSONAL INVOLVEMENT IN CARE I have reviewed the progress note obtained and documented by Nicky Carmona MD and I personally participated in the de jesus components. I have discussed the case and management of the patient's care. The following comments revise or confirm relevant de jesus components of the note. Patient doing quite well with PAP therapy. She has no complaints at this time. Sleeping through the night. Finds sleep to be restorative. Denies daytime sleepiness (ESS during visit 03/24). No new complaints PAP compliance report reviewed with pt. Residual AHI of 0.9 with nightly use of the past 90 days for avg of 7 hours and 18 minutes. 95% pressure 12.7 cmH2O and 95% leak only 3.0 LPM. Reminded pt to clean and replace equipment regularly. Encouraged continued weight loss. Advised pt not to drive or operate heavy machinery if sleepy. Follow up 1 year. Aydee Eckert MD I spent a total of 20+ minutes on the date of the service which included preparing to see the patient, [id number] patient care, completing clinical documentation, obtaining and/or reviewing separately obtained history, performing a medically appropriate examination, counseling and educating the patient/family/caregiver, communicating with other HCPs (not separately reported), independently interpreting results (not separately reported), and communicating results to the patient/family/caregiver. documented in this encounter [facility] 09-04-2022 Miscellaneous Notes Patient has been identified by name and date of : Yes Pharmacy phones for refill(s): Requested Prescriptions Pending Prescriptions Disp Refills hydroCHLOROthiazide (HYDRODIURIL, ESIDRIX) 25 mg tablet [Pharmacy Med Name: HYDROCHLOROTHIAZIDE 25 MG TAB] 30 tablet 0 Sig: TAKE 1 TABLET BY MOUTH EVERY DAY Date of last office visit in primary care: 08/23/2022 Please advise. Thank you. Evy Catherine LPN documented in this encounter [facility] 08-23-2022 Note HNO ID: [id number] Author: Lindsay Herrera APRN.AMPOULE EXAMINER Service: ? Author Type: Nurse Practitioner Type: Progress Notes Filed: 08/23/2022 7:59 AM Note Text: Chief Complaint Patient presents with: Follow Up HPI Jaye Patterson is a 47 year old female who presents here today for Above Complaints.. Patient presents for bp check. Patient states that she has had heaviness in her legs and dizziness since starting the HCTZ. Patient had requested trying this medication because her family members are on it and she wanted to see if it would be effective. Patient also reports muscle cramps in her legs and arms. Past medical history, appointments, medications, allergies reviewed. Previous Medical History PAST MEDICAL HISTORY Diagnosis Date Allergic rhinitis 02/24/2016 Carpal tunnel syndrome, bilateral 05/31/2022 NCS: 05/2022: mild Chronic pain of left knee 03/07/2018 Elevated hemoglobin A1c 03/22/2021 Family history of early CAD 08/27/2016 Family history of thyroid disease 03/22/2021 Fibroid, uterine 09/21/2021 [place] [place] Generalized anxiety disorder 08/27/2016 Hypertension, essential 05/09/2022 Migraine without aura and without status migrainosus, not intractable 02/22/2015 Obesity, Class III, BMI 40-49.9 (morbid obesity) ([facility]) 11/20/2017 Severe obstructive sleep apnea 04/21/2018 Thyroid nodule 06/30/2014 Well adult exam 08/25/2014 LAst done 03/18/2020 Previous Surgical History PAST SURGICAL HISTORY Procedure Laterality Date *STRESS TEST PC 09/24/2016 normal ESOPHAGOGASTRODUODENOSCOPY TRANSORAL DIAGNOSTIC 06/08/16 EGD Family History FAMILY HISTORY Problem Relation Age of Onset Colon Cancer Paternal Grandmother Cervical Cancer Maternal Grandmother Hypertension Maternal Grandmother Coronary Artery Disease Father 55 Diabetes Maternal Aunt Diabetes Maternal Aunt Hypertension Mother Hypertension Maternal Grandfather Stroke Maternal Grandfather Hypertension Maternal Aunt Hypertension Maternal Uncle Prostate Cancer Paternal Grandfather Thyroid Maternal Aunt Coronary Artery Disease Maternal Aunt 40's Patient Allergies ALLERGIES Allergen Reactions Bactrim [Sulfametho* Hives, Other: See Comments Fever, Chills, rash, low BP Codeine Other: See Comments Chest pain Current Medications Current Outpatient Medications on File Prior to Visit Medication Sig hydroCHLOROthiazide (HYDRODIURIL, ESIDRIX) 25 mg tablet TAKE 1 TABLET BY MOUTH EVERY DAY fluticasone (FLONASE) 50 mcg/actuation nasal spray Use 2 Sprays in each nostril once daily. SUMAtriptan (IMITREX) 100 mg tablet Take 1 tablet by mouth as needed for Migraine Headache (see administration instructions). MULTIVITAMIN/IRON/FOLIC ACID (DAILY MULTI ORAL) Take 1 tablet by mouth once daily. ibuprofen (MOTRIN) 200 mg tablet Take 200 mg by mouth every 6 hours as needed. No current facility-administered medications on file prior to visit. Social History Social History Tobacco Use Smoking status: Never Smokeless tobacco: Never Substance Use Topics Alcohol use: Yes Comment: rare Drug use: No Review of Symptoms REVIEW OF SYSTEMS SEE HPI EXAM: BP 132/78 Pulse 68 Resp 14 Wt 127 kg (280 lb) LMP 04/01/2022 (Approximate) BMI 44.18 kg/m? General Appearance: Well appearing, alert, in no acute distress, well-hydrated, well nourished.. Lungs: Lungs clear to auscultation. No wheezing, rhonchi, rales.. Heart: RRR without murmur, gallop, or rubs. No ectopy. Health Maintenance List BP CONTROLLED (<130/80) Never done MAMMOGRAM Never done COLORECTAL CANCER SCREENING Never done DEPRESSION ASSESSMENT due on 07/01/2022 ANNUAL PCP TEAM CHRONIC DISEASE VISIT due on 08/23/2023 PAP TESTING due on 01/24/2025 HPV TESTING due on 01/24/2025 DIABETES SCREEN due on 07/19/2025 LIPID SCREEN due on 04/05/2027 DTAP,TDAP,TD(3 - Td or Tdap) due on 03/18/2030 INFLUENZA Completed COVID-19 VACCINE Completed HEPATITIS B Discontinued HEPATITIS C SCREENING Discontinued HIV SCREENING Discontinued ASSESSMENT/PLAN: 1. Primary hypertension - ICD9: 401.9, ICD10: I10 - suboptimal control - Begin metoprolol (Lopressor/Toprol) - Discontinue HCTZ - Encouraged dietary sodium restriction/DASH diet - Recommended regular aerobic exercise. - Recommend home blood pressure monitoring, to bring results in on next visit - Discussed need and benefit for weight loss. - Follow up in 1 month for BP recheck. - Goal of BP <130/80 Lindsay Herrera APRN.CNP [facility] 08-23-2022 Instructions Lindsay Herrera APRN.CNP - 08/23/2022 7:57 AM EST Stop hydrochlorothiazide Start metoprolol Follow up in 4 weeks Notify provider if HR less than 55 documented in this encounter [facility] 08-23-2022 History of Present illness Narrative Chief Complaint Patient presents with: Follow Up HPI Jaye Patterson is a 47 year old female who presents here today for Above Complaints.. Patient presents for bp check. Patient states that she has had heaviness in her legs and dizziness since starting the HCTZ. Patient had requested trying this medication because her family members are on it and she wanted to see if it would be effective. Patient also reports muscle cramps in her legs and arms. Past medical history, appointments, medications, allergies reviewed. Previous Medical History PAST MEDICAL HISTORY Diagnosis Date Allergic rhinitis 02/24/2016 Carpal tunnel syndrome, bilateral 05/31/2022 NCS: 05/2022: mild Chronic pain of left knee 03/07/2018 Elevated hemoglobin A1c 03/22/2021 Family history of early CAD 08/27/2016 Family history of thyroid disease 03/22/2021 Fibroid, uterine 09/21/2021 [place] [place] [place] Generalized anxiety disorder 08/27/2016 Hypertension, essential 05/09/2022 Migraine without aura and without status migrainosus, not intractable 02/22/2015 Obesity, Class III, BMI 40-49.9 (morbid obesity) ([facility]) 11/20/2017 Severe obstructive sleep apnea 04/21/2018 Thyroid nodule 06/30/2014 Well adult exam 08/25/2014 LAst done 03/18/2020 Previous Surgical History PAST SURGICAL HISTORY Procedure Laterality Date *STRESS TEST PC 09/24/2016 normal ESOPHAGOGASTRODUODENOSCOPY TRANSORAL DIAGNOSTIC 06/08/16 EGD Family History FAMILY HISTORY Problem Relation Age of Onset Colon Cancer Paternal Grandmother Cervical Cancer Maternal Grandmother Hypertension Maternal Grandmother Coronary Artery Disease Father 55 Diabetes Maternal Aunt Diabetes Maternal Aunt Hypertension Mother Hypertension Maternal Grandfather Stroke Maternal Grandfather Hypertension Maternal Aunt Hypertension Maternal Uncle Prostate Cancer Paternal Grandfather Thyroid Maternal Aunt Coronary Artery Disease Maternal Aunt 40's Patient Allergies ALLERGIES Allergen Reactions Bactrim [Sulfametho* Hives, Other: See Comments Fever, Chills, rash, low BP Codeine Other: See Comments Chest pain Current Medications Current Outpatient Medications on File Prior to Visit Medication Sig hydroCHLOROthiazide (HYDRODIURIL, ESIDRIX) 25 mg tablet TAKE 1 TABLET BY MOUTH EVERY DAY fluticasone (FLONASE) 50 mcg/actuation nasal spray Use 2 Sprays in each nostril once daily. SUMAtriptan (IMITREX) 100 mg tablet Take 1 tablet by mouth as needed for Migraine Headache (see administration instructions). MULTIVITAMIN/IRON/FOLIC ACID (DAILY MULTI ORAL) Take 1 tablet by mouth once daily. ibuprofen (MOTRIN) 200 mg tablet Take 200 mg by mouth every 6 hours as needed. No current facility-administered medications on file prior to visit. Social History Social History Tobacco Use Smoking status: Never Smokeless tobacco: Never Substance Use Topics Alcohol use: Yes Comment: rare Drug use: No Review of Symptoms REVIEW OF SYSTEMS SEE HPI EXAM: BP 132/78 Pulse 68 Resp 14 Wt 127 kg (280 lb) LMP 04/01/2022 (Approximate) BMI 44.18 kg/m General Appearance: Well appearing, alert, in no acute distress, well-hydrated, well nourished.. Lungs: Lungs clear to auscultation. No wheezing, rhonchi, rales.. Heart: RRR without murmur, gallop, or rubs. No ectopy. Health Maintenance List BP CONTROLLED (<130/80) Never done MAMMOGRAM Never done COLORECTAL CANCER SCREENING Never done DEPRESSION ASSESSMENT due on 07/01/2022 ANNUAL PCP TEAM CHRONIC DISEASE VISIT due on 08/23/2023 PAP TESTING due on 01/24/2025 HPV TESTING due on 01/24/2025 DIABETES SCREEN due on 07/19/2025 LIPID SCREEN due on 04/05/2027 DTAP,TDAP,TD(3 - Td or Tdap) due on 03/18/2030 INFLUENZA Completed COVID-19 VACCINE Completed HEPATITIS B Discontinued HEPATITIS C SCREENING Discontinued HIV SCREENING Discontinued ASSESSMENT/PLAN: 1. Primary hypertension - ICD9: 401.9, ICD10: I10 - suboptimal control - Begin metoprolol (Lopressor/Toprol) - Discontinue HCTZ - Encouraged dietary sodium restriction/DASH diet - Recommended regular aerobic exercise. - Recommend home blood pressure monitoring, to bring results in on next visit - Discussed need and benefit for weight loss. - Follow up in 1 month for BP recheck. - Goal of BP <130/80 Lindsay Herrera APRN.LORIE documented in this encounter [facility] 08-13-2022 Miscellaneous Notes Patient has been identified by name and date of : Yes Requested Prescriptions Pending Prescriptions Disp Refills hydroCHLOROthiazide (HYDRODIURIL, ESIDRIX) 25 mg tablet [Pharmacy Med Name: HYDROCHLOROTHIAZIDE 25 MG TAB] 30 tablet 0 Sig: TAKE 1 TABLET BY MOUTH EVERY DAY RX INSTRUCTIONS: Patient aware RX will be sent to pharmacy. No need to notify patient. Meli Alexis MA [place]; 07/2022 Nov: 08/2022 Last refill: 07/2022 documented in this encounter [facility] 07-20-2022 Miscellaneous Notes Patient notified and verbalized understanding Emely Sharma Cma Please let patient know her lab work is normal documented in this encounter [facility] 07-19-2022 Note HNO ID: [id number] Author: Lindsay Herrera APRN.AMPOULE EXAMINER Service: ? Author Type: Nurse Practitioner Type: Progress Notes Filed: 07/19/2022 8:15 AM Note Text: Chief Complaint Patient presents with: Follow Up HPI Jaye Patterson is a 47 year old female who presents here today for Above Complaints.. Patient presents for BP follow up. Patient was seen 06/14/2022 for elevated BP. At that time amlodipine was stopped and patient was started on lisinopril. Patient states that sh has a cough but not long after starting lisinopril she got sick and is not sure if cough is related to medication. Reports vision changes, cough. Denies Past medical history, appointments, medications, allergies reviewed. Previous Medical History PAST MEDICAL HISTORY Diagnosis Date Allergic rhinitis 02/24/2016 Carpal tunnel syndrome, bilateral 05/31/2022 NCS: 05/2022: mild Chronic pain of left knee 03/07/2018 Elevated hemoglobin A1c 03/22/2021 Family history of early CAD 08/27/2016 Family history of thyroid disease 03/22/2021 Fibroid, uterine 09/21/2021 [place] [place] Generalized anxiety disorder 08/27/2016 Hypertension, essential 05/09/2022 Migraine without aura and without status migrainosus, not intractable 02/22/2015 Obesity, Class III, BMI 40-49.9 (morbid obesity) ([facility]) 11/20/2017 Severe obstructive sleep apnea 04/21/2018 Thyroid nodule 06/30/2014 Well adult exam 08/25/2014 LAst done 03/18/2020 Previous Surgical History PAST SURGICAL HISTORY Procedure Laterality Date *STRESS TEST PC 09/24/2016 normal ESOPHAGOGASTRODUODENOSCOPY TRANSORAL DIAGNOSTIC 06/08/16 EGD Family History FAMILY HISTORY Problem Relation Age of Onset Colon Cancer Paternal Grandmother Cervical Cancer Maternal Grandmother Hypertension Maternal Grandmother Coronary Artery Disease Father 55 Diabetes Maternal Aunt Diabetes Maternal Aunt Hypertension Mother Hypertension Maternal Grandfather Stroke Maternal Grandfather Hypertension Maternal Aunt Hypertension Maternal Uncle Prostate Cancer Paternal Grandfather Thyroid Maternal Aunt Coronary Artery Disease Maternal Aunt 40's Patient Allergies ALLERGIES Allergen Reactions Bactrim [Sulfametho* Hives, Other: See Comments Fever, Chills, rash, low BP Codeine Other: See Comments Chest pain Current Medications Current Outpatient Medications on File Prior to Visit Medication Sig lisinopril (ZESTRIL, PRINIVIL) 10 mg tablet Take 1 tablet by mouth once daily. fluticasone (FLONASE) 50 mcg/actuation nasal spray Use 2 Sprays in each nostril once daily. SUMAtriptan (IMITREX) 100 mg tablet Take 1 tablet by mouth as needed for Migraine Headache (see administration instructions). MULTIVITAMIN/IRON/FOLIC ACID (DAILY MULTI ORAL) Take 1 tablet by mouth once daily. ibuprofen (MOTRIN) 200 mg tablet Take 200 mg by mouth every 6 hours as needed. No current facility-administered medications on file prior to visit. Social History Social History Tobacco Use Smoking status: Never Smokeless tobacco: Never Substance Use Topics Alcohol use: Yes Comment: rare Drug use: No Review of Symptoms REVIEW OF SYSTEMS SEE HPI EXAM: BP 130/82 Pulse 74 Resp 16 Wt 127.9 kg (282 lb) LMP 04/01/2022 (Approximate) BMI 44.50 kg/m? General Appearance: Well appearing, alert, in no acute distress, well-hydrated, well nourished.. Lungs: Lungs clear to auscultation. No wheezing, rhonchi, rales.. Heart: RRR without murmur, gallop, or rubs. No ectopy. Health Maintenance List BP CONTROLLED (<130/80) Never done MAMMOGRAM Never done COLORECTAL CANCER SCREENING Never done DEPRESSION ASSESSMENT due on 07/01/2022 ANNUAL PCP TEAM CHRONIC DISEASE VISIT due on 06/14/2023 PAP TESTING due on 01/24/2025 HPV TESTING due on 01/24/2025 DIABETES SCREEN due on 06/14/2025 LIPID SCREEN due on 04/05/2027 DTAP,TDAP,TD(3 - Td or Tdap) due on 03/18/2030 INFLUENZA Completed COVID-19 VACCINE Completed HEPATITIS B Discontinued HEPATITIS C SCREENING Discontinued HIV SCREENING Discontinued ASSESSMENT/PLAN: 1. Hypertension, essential - ICD9: 401.9, ICD10: I10 (primary diagnosis) - good control - Begin HCTZ - Discontinue lisinopril (Zestril/Prinivil) - Check BMP prior to next visit - Encouraged dietary sodium restriction/DASH diet - Recommended regular aerobic exercise. - Recommend home blood pressure monitoring, to bring results in on next visit - Discussed need and benefit for weight loss. - Follow up in 1 month for BP recheck. - Goal of BP <130/80 - HYDROCHLOROTHIAZIDE 25 MG TABLET 2. Medication management - ICD9: V58.69, ICD10: Z79.899 - BASIC METABOLIC PNL 3. Fibroids - ICD9: 215.9, ICD10: D21.9 - CONSULT TO GYNECOLOGY Lindsay Herrera APRN.CNP [facility] 07-19-2022 Instructions Lindsay Herrera APRN.CNP - 07/19/2022 8:14 AM EST Stop lisinopril Start hydrochlorothiazide Follow up in 1 month documented in this encounter [facility] 07-19-2022 History of Present illness Narrative Chief Complaint Patient presents with: Follow Up HPI Jaye Patterson is a 47 year old female who presents here today for Above Complaints.. Patient presents for BP follow up. Patient was seen 06/14/2022 for elevated BP. At that time amlodipine was stopped and patient was started on lisinopril. Patient states that sh has a cough but not long after starting lisinopril she got sick and is not sure if cough is related to medication. Reports vision changes, cough. Denies Past medical history, appointments, medications, allergies reviewed. Previous Medical History PAST MEDICAL HISTORY Diagnosis Date Allergic rhinitis 02/24/2016 Carpal tunnel syndrome, bilateral 05/31/2022 NCS: 05/2022: mild Chronic pain of left knee 03/07/2018 Elevated hemoglobin A1c 03/22/2021 Family history of early CAD 08/27/2016 Family history of thyroid disease 03/22/2021 Fibroid, uterine 09/21/2021 [place] [place] [place] Generalized anxiety disorder 08/27/2016 Hypertension, essential 05/09/2022 Migraine without aura and without status migrainosus, not intractable 02/22/2015 Obesity, Class III, BMI 40-49.9 (morbid obesity) ([facility]) 11/20/2017 Severe obstructive sleep apnea 04/21/2018 Thyroid nodule 06/30/2014 Well adult exam 08/25/2014 LAst done 03/18/2020 Previous Surgical History PAST SURGICAL HISTORY Procedure Laterality Date *STRESS TEST PC 09/24/2016 normal ESOPHAGOGASTRODUODENOSCOPY TRANSORAL DIAGNOSTIC 06/08/16 EGD Family History FAMILY HISTORY Problem Relation Age of Onset Colon Cancer Paternal Grandmother Cervical Cancer Maternal Grandmother Hypertension Maternal Grandmother Coronary Artery Disease Father 55 Diabetes Maternal Aunt Diabetes Maternal Aunt Hypertension Mother Hypertension Maternal Grandfather Stroke Maternal Grandfather Hypertension Maternal Aunt Hypertension Maternal Uncle Prostate Cancer Paternal Grandfather Thyroid Maternal Aunt Coronary Artery Disease Maternal Aunt 40's Patient Allergies ALLERGIES Allergen Reactions Bactrim [Sulfametho* Hives, Other: See Comments Fever, Chills, rash, low BP Codeine Other: See Comments Chest pain Current Medications Current Outpatient Medications on File Prior to Visit Medication Sig lisinopril (ZESTRIL, PRINIVIL) 10 mg tablet Take 1 tablet by mouth once daily. fluticasone (FLONASE) 50 mcg/actuation nasal spray Use 2 Sprays in each nostril once daily. SUMAtriptan (IMITREX) 100 mg tablet Take 1 tablet by mouth as needed for Migraine Headache (see administration instructions). MULTIVITAMIN/IRON/FOLIC ACID (DAILY MULTI ORAL) Take 1 tablet by mouth once daily. ibuprofen (MOTRIN) 200 mg tablet Take 200 mg by mouth every 6 hours as needed. No current facility-administered medications on file prior to visit. Social History Social History Tobacco Use Smoking status: Never Smokeless tobacco: Never Substance Use Topics Alcohol use: Yes Comment: rare Drug use: No Review of Symptoms REVIEW OF SYSTEMS SEE HPI EXAM: BP 130/82 Pulse 74 Resp 16 Wt 127.9 kg (282 lb) LMP 04/01/2022 (Approximate) BMI 44.50 kg/m General Appearance: Well appearing, alert, in no acute distress, well-hydrated, well nourished.. Lungs: Lungs clear to auscultation. No wheezing, rhonchi, rales.. Heart: RRR without murmur, gallop, or rubs. No ectopy. Health Maintenance List BP CONTROLLED (<130/80) Never done MAMMOGRAM Never done COLORECTAL CANCER SCREENING Never done DEPRESSION ASSESSMENT due on 07/01/2022 ANNUAL PCP TEAM CHRONIC DISEASE VISIT due on 06/14/2023 PAP TESTING due on 01/24/2025 HPV TESTING due on 01/24/2025 DIABETES SCREEN due on 06/14/2025 LIPID SCREEN due on 04/05/2027 DTAP,TDAP,TD(3 - Td or Tdap) due on 03/18/2030 INFLUENZA Completed COVID-19 VACCINE Completed HEPATITIS B Discontinued HEPATITIS C SCREENING Discontinued HIV SCREENING Discontinued ASSESSMENT/PLAN: 1. Hypertension, essential - ICD9: 401.9, ICD10: I10 (primary diagnosis) - good control - Begin HCTZ - Discontinue lisinopril (Zestril/Prinivil) - Check BMP prior to next visit - Encouraged dietary sodium restriction/DASH diet - Recommended regular aerobic exercise. - Recommend home blood pressure monitoring, to bring results in on next visit - Discussed need and benefit for weight loss. - Follow up in 1 month for BP recheck. - Goal of BP <130/80 - HYDROCHLOROTHIAZIDE 25 MG TABLET 2. Medication management - ICD9: V58.69, ICD10: Z79.899 - BASIC METABOLIC PNL 3. Fibroids - ICD9: 215.9, ICD10: D21.9 - CONSULT TO GYNECOLOGY Lindsay Herrera APRN.[employer]OULE EXAMINER documented in this encounter [facility] 07-06-2022 Miscellaneous Notes Prescription shows one additional prescription available. Patient is being see on 07/19/2021 to review BP. Meli Alexis MA documented in this encounter [facility] 07-04-2022 Miscellaneous Notes Patient notified and voiced understanding. Meli Alexis MA Let patient know she can take muccinex with the Coricidin. She can also check with the pharmacist while she is there to make sure there is no duplication between the two meds depending on what formulation of Coricidin she gets. Patient on day 5 cough, congestion, fever has resolved, asking what she can take for cough, offered appt, Patient declined, feels that she is getting better. Dx with HTN, not sure what she can take, advised Coricidin HBP, good comfort care. Asking if she can take Mucinex. Please review/advise. Myrtle Rivera LPN documented in this encounter [facility] 07-03-2022 Miscellaneous Notes Patient calling in, given below results. Myrtle Rivera LPN documented in this encounter [facility] 06-18-2022 Miscellaneous Notes Unable to reach by phone [employer] message sent Emely Sharma Cma Left message for patient to return call to office Emely Sharma Cma Please let patient know that her CMP is normal documented in this encounter [facility] 06-14-2022 Instructions Lindsay Herrera APRN.CNP - 06/14/2022 9:09 AM EST Stop amlodopine Start lisinopril Encouraged weight loss through diet and exercise Follow up in 1 month for BP follow up and evaluation of splinting for carpal tunnel documented in this encounter [facility] 06-14-2022 History of Present illness Narrative Chief Complaint Patient presents with: Hypertension HPI Jaye Patterson is a 47 year old female who presents here today for Above Complaints.. Patient presents for BP follow up and to discuss test results regarding carpal tunnel. Patient reports pain following repetitive motions like lifting and stacking firewood. Patient reports use of ice to area which improves swelling and mobility. Denies headaches, blurred vision, dizziness, chest pain, shortness of breath. Past medical history, appointments, medications, allergies reviewed. Previous Medical History PAST MEDICAL HISTORY Diagnosis Date Allergic rhinitis 02/24/2016 Carpal tunnel syndrome, bilateral 05/31/2022 NCS: 05/2022: mild Chronic pain of left knee 03/07/2018 Elevated hemoglobin A1c 03/22/2021 Family history of early CAD 08/27/2016 Family history of thyroid disease 03/22/2021 Fibroid, uterine 09/21/2021 [place] [place] Generalized anxiety disorder 08/27/2016 Hypertension, essential 05/09/2022 Migraine without aura and without status migrainosus, not intractable 02/22/2015 Obesity, Class III, BMI 40-49.9 (morbid obesity) (HCC) 11/20/2017 Severe obstructive sleep apnea 04/21/2018 Thyroid nodule 06/30/2014 Well adult exam 08/25/2014 LAst done 03/18/2020 Previous Surgical History PAST SURGICAL HISTORY Procedure Laterality Date *STRESS TEST PC 09/24/2016 normal ESOPHAGOGASTRODUODENOSCOPY TRANSORAL DIAGNOSTIC 06/08/16 EGD Family History FAMILY HISTORY Problem Relation Age of Onset Colon Cancer Paternal Grandmother Cervical Cancer Maternal Grandmother Hypertension Maternal Grandmother Coronary Artery Disease Father 55 Diabetes Maternal Aunt Diabetes Maternal Aunt Hypertension Mother Hypertension Maternal Grandfather Stroke Maternal Grandfather Hypertension Maternal Aunt Hypertension Maternal Uncle Prostate Cancer Paternal Grandfather Thyroid Maternal Aunt Coronary Artery Disease Maternal Aunt 40's Patient Allergies ALLERGIES Allergen Reactions Bactrim [Sulfametho* Hives, Other: See Comments Fever, Chills, rash, low BP Codeine Other: See Comments Chest pain Current Medications Current Outpatient Medications on File Prior to Visit Medication Sig amLODIPine (NORVASC) 5 mg tablet Take 1 tablet by mouth once daily. fluticasone (FLONASE) 50 mcg/actuation nasal spray Use 2 Sprays in each nostril once daily. SUMAtriptan (IMITREX) 100 mg tablet Take 1 tablet by mouth as needed for Migraine Headache (see administration instructions). MULTIVITAMIN/IRON/FOLIC ACID (DAILY MULTI ORAL) Take 1 tablet by mouth once daily. ibuprofen (MOTRIN) 200 mg tablet Take 200 mg by mouth every 6 hours as needed. Current Facility-Administered Medications on File Prior to Visit Medication perflutren lipid microspheres 1.3 mL in NaCl (PF) 0.9% 10 mL injection (DEFINITY) sodium chloride 0.9 % (flush) 10 mL (BD POSIFLUSH) Social History Social History Tobacco Use Smoking status: Never Smokeless tobacco: Never Substance Use Topics Alcohol use: Yes Comment: rare Drug use: No Review of Symptoms REVIEW OF SYSTEMS SEE HPI EXAM: BP 148/86 Pulse 94 Resp 18 Wt 128.8 kg (284 lb) LMP 04/01/2022 (Approximate) BMI 44.81 kg/m General Appearance: Well appearing, alert, in no acute distress, well-hydrated, well nourished. and Morbidly obese. Lungs: Lungs clear to auscultation. No wheezing, rhonchi, rales.. Heart: RRR without murmur, gallop, or rubs. No ectopy. Extremities: No deformities, edema, skin discoloration, clubbing or cyanosis. Good capillary refill. . Neurologic: Gait normal. Reflexes normal and symmetric. Sensation grossly intact.. Health Maintenance List BP CONTROLLED (<130/80) Never done MAMMOGRAM Never done COLORECTAL CANCER SCREENING Never done ANNUAL PCP TEAM CHRONIC DISEASE VISIT due on 04/05/2023 PAP TESTING due on 01/24/2025 HPV TESTING due on 01/24/2025 DIABETES SCREEN due on 04/05/2025 LIPID SCREEN due on 04/05/2027 DTAP,TDAP,TD(3 - Td or Tdap) due on 03/18/2030 INFLUENZA Completed DEPRESSION ASSESSMENT Completed COVID-19 VACCINE Completed HEPATITIS B Discontinued HEPATITIS C SCREENING Discontinued HIV SCREENING Discontinued ASSESSMENT/PLAN: 1. Hypertension, essential - ICD9: 401.9, ICD10: I10 (primary diagnosis) - suboptimal control - Begin lisinopril (Zestril/Prinivil) - Discontinue amlodipine (Norvasc) - Encouraged dietary sodium restriction/DASH diet - Recommended regular aerobic exercise. - Recommend home blood pressure monitoring, to bring results in on next visit - Discussed need and benefit for weight loss. - Follow up in 1 month for BP recheck. - Goal of BP <130/80 2. Carpal tunnel syndrome, bilateral - ICD9: 354.0, ICD10: G56.03 -Bilateral splinting of wrists recommended. -Follow up in 1 month, if no improvement with splinting may consider steroids. Lindsay Herrera APRN.AMPOULE EXAMINER documented in this encounter [facility] 06-01-2022 Miscellaneous Notes Patient phones back and provider message reviewed. Patient asking if it can be discussed at 06/14/2022 appointment with Lindsay Herrera CNP. Verified with Lindsay that it would be ok. Patient updated and visit note updated to reflect discussing tx options at that time. Jesica Hein RN Message left for pt to call back. Suha Osuna Ma See if patient willing to make appt to discuss Tx options for mild carpal tunnel in both wrists. Received pt's results from [facility]/NCS. Edita Saldana LPN Scan on 05/30/2022 4:11 PM by External Provider: Neurology documented in this encounter [facility] 05-10-2022 Miscellaneous Notes Patient notified and scheduled. Meli Alexis MA Advise patient I sent in script for Norvasc 5 mg a day to [facility] in [place]. Patient will need [facility] appointment for HTN med check in a month. The following approved medication requests have been transmitted electronically. Requested Prescriptions Signed Prescriptions Disp Refills amLODIPine (NORVASC) 5 mg tablet 90 tablet 1 Sig: Take 1 tablet by mouth once daily. Authorizing Provider: CALVIN VEGA MD Notified patient. Patient states technically yes she's able to have kids but no they are not planning on it. Pharmacy verified: [facility]. Dr. Vega-Please advise if a 1 month BP f/u is appropriate. Emely Alonzo MA Let patient know BP is too high and needs to get started on a BP medication. Find out if her and Rohith can still have kids. If not I will want to start her on Lisinopril 20 mg a day. If so then would place her on Norvasc 5 mg a day. Manual Readin/96 Pulse: 80 BP Jero average: 144/89 P: 78 Repeat BP Check: 132/91 P75 #1 146/86 P79 #2 149/90 P79 #3 143/89 P78 #4 151/89 P79 #5 143/91 P77 #6 Reason for blood pressure check - Last BP elevated Patient is: Taking medication as prescribed Yes Took medication today Yes If no, date medication last taken N/A Experiencing side effects No BP was elevated at last appt 04/05/22. No BP medication changes were made at that time. Taking all medications as prescribed. Denies any chest pain, shortness of breath, or dizziness. H/o migraines. No caffeine use. No personal history of tobacco use; no current exposure. Alert and oriented. Pt has been identified by name and birthdate: Yes Allergies reviewed: Yes Latex allergy: no. Medication - prescribed and OTC reviewed and updated: Yes Do you need any prescription refills prior to your next visit: No Health Maintenance: Reviewed and not up to date and provider notified Patient advised that she would be contacted after review by PCP. Samantha De La Torre LPN documented in this encounter [facility] 04-09-2022 Miscellaneous Notes Pt notified of results via [employer]. Suha Osuna Ma Let patient know her lipid panel and thyroid lab were ok. Her A1c is improved at 5.8 (normal is 4.3-5.6% and DM is 6.5% and higher. Last time she was 6.1%. advise her to continue working on improved diet and weight loss. documented in this encounter [facility] 04-05-2022 History of Present illness Narrative Chief Complaint Patient presents with: Physical HPI Jaye Patterson is a 46 year old female who presents here today for Physical. Patient with hx of Migraines, elevated blood pressures, ALISIA, Elevated a1c, allergies, anxiety, and those as below. Patient has bene doing well. Since being off the hormone replacement she is not having the depressed mood like she was and feels more senior clinical project manager. Past medical history, appointments, medications, allergies reviewed. Previous Medical History PAST MEDICAL HISTORY Diagnosis Date Allergic rhinitis 02/24/2016 Chronic pain of left knee 03/07/2018 Elevated hemoglobin A1c 03/22/2021 Family history of early CAD 08/27/2016 Family history of thyroid disease 03/22/2021 Generalized anxiety disorder 08/27/2016 Migraine without aura and without status migrainosus, not intractable 02/22/2015 Obesity, Class III, BMI 40-49.9 (morbid obesity) ([facility]) 11/20/2017 Severe obstructive sleep apnea 04/21/2018 Thyroid nodule 06/30/2014 Well adult exam 08/25/2014 LAst done 03/18/2020 Previous Surgical History PAST SURGICAL HISTORY Procedure Laterality Date *STRESS TEST PC 09/24/2016 normal ESOPHAGOGASTRODUODENOSCOPY TRANSORAL DIAGNOSTIC 06/08/16 EGD Family History FAMILY HISTORY Problem Relation Age of Onset Colon Cancer Paternal Grandmother Cervical Cancer Maternal Grandmother Hypertension Maternal Grandmother Coronary Artery Disease Father 55 Diabetes Maternal Aunt Diabetes Maternal Aunt Hypertension Mother Hypertension Maternal Grandfather Stroke Maternal Grandfather Hypertension Maternal Aunt Hypertension Maternal Uncle Prostate Cancer Paternal Grandfather Thyroid Maternal Aunt Coronary Artery Disease Maternal Aunt 40's Patient Allergies ALLERGIES Allergen Reactions Bactrim [Sulfametho* Hives, Other: See Comments Fever, Chills, rash, low BP Codeine Other: See Comments Chest pain Current Medications Current Outpatient Medications on File Prior to Visit Medication Sig fluticasone (FLONASE) 50 mcg/actuation nasal spray Use 2 Sprays in each nostril once daily. SUMAtriptan (IMITREX) 100 mg tablet Take 1 tablet by mouth as needed for Migraine Headache (see administration instructions). MULTIVITAMIN/IRON/FOLIC ACID (DAILY MULTI ORAL) Take 1 tablet by mouth once daily. ibuprofen (MOTRIN) 200 mg tablet Take 200 mg by mouth every 6 hours as needed. levonorgestrel-ethinyl estradiol 0.15-0.03 mg per tab Take 1 tablet by mouth once daily. (Patient not taking: Reported on 04/05/2022) Current Facility-Administered Medications on File Prior to Visit Medication perflutren lipid microspheres 1.3 mL in NaCl (PF) 0.9% 10 mL injection (DEFINITY) sodium chloride 0.9 % (flush) 10 mL (BD POSIFLUSH) Social History Social History Tobacco Use Smoking status: Never Smokeless tobacco: Never Substance Use Topics Alcohol use: Yes Comment: rare Drug use: No Review of Symptoms REVIEW OF SYSTEMS GENERAL: No weight loss, malaise or fevers HEENT: Negative for frequent or significant headaches, No changes in hearing or vision, no nose bleeds or other nasal problems NECK: Negative for lumps, goiter, pain and significant neck swelling RESPIRATORY: Negative for cough, hemoptysis, wheezing, COPD, dyspnea or shortness of breath CARDIOVASCULAR: Negative for chest pain, leg swelling, hypertension, CHF or palpitations GI: No nausea, vomiting, or diarrhea and No heartburn or reflux symptoms : No history of dysuria, blood MUSCULOSKELETAL: Negative for joint pain or swelling, back pain or muscle pain SKIN: Negative for lesions, rash, and itching PSYCH: Negative for sleep disturbance, mood disorder and recent psychosocial stressors HEMATOLOGY/LYMPHOLOGY: Negative for prolonged bleeding, bruising easily or swollen nodes ENDOCRINE: Negative for cold or heat intolerance, polyuria, polydipsia and goiter NEURO: No history of headaches, syncope, paralysis, seizures or tremors. Still getting numbness in both hands at times such as when driving. EXAM: BP 150/100 (BP Site: Left Arm, BP Position: Sitting, BP Cuff Size: Large Adult) Pulse 78 Resp 16 Ht 169.5 cm (5' 6.75 ) Wt 126.1 kg (278 lb) LMP 04/01/2022 (Approximate) BMI 43.87 kg/m BP 152/96 Pulse 78 Resp 16 Ht 169.5 cm (5' 6.75 ) Wt 126.1 kg (278 lb) LMP 04/01/2022 (Approximate) BMI 43.87 kg/m Last 5 Encounter BP Readings: Date: BP: 04/05/2022 152/96 09/21/2021 126/79[bp jero average[ 03/22/2021 134/82 03/18/2020 146/84 12/17/2018 126/80 Last 5 Encounter Wt Readings: Date: Wt: 04/05/2022 126.1 kg (278 lb) 09/21/2021 125.6 kg (277 lb) 03/22/2021 124.3 kg (274 lb) 03/18/2020 119.3 kg (263 lb) 12/17/2018 116.6 kg (257 lb) General Appearance: Well appearing, alert, in no acute distress, well-hydrated, well nourished. and Morbidly obese. Skin: Skin color, texture, turgor normal, no suspicious rashes or lesions. Head: Normocephalic, no masses, lesions, tenderness or abnormalities. Eyes: Anicteric sclera. Pupils are equally round and reactive to light. Extraocular movements are intact. . Ears: External ears, TM's normal, canals clear. Neck: Supple, no adenopathy; thyroid symmetric, normal size, no bruits. Lungs: Lungs clear to auscultation. No wheezing, rhonchi, rales.. Heart: RRR without murmur, gallop, or rubs. No ectopy. Abdomen: Abdomen soft, still with mild tenderness on the RLQ and is side that she has a fibroid at on her uterus. Bowel sounds normal. No masses, organomegaly. No guarding or rebound pain. Extremities: No deformities, edema, skin discoloration, Good capillary refill. . Musculoskeletal: Muscular strength intact, No joint swelling, deformity, or tenderness. Peripheral Pulses: Normal. Neurologic: Gait normal. Reflexes normal and symmetric. Sensation to light touch and crainal nerves 2-12 intact.. Health Maintenance List HEPATITIS B(1 of 3 - 3-dose series) Never done MAMMOGRAM Never done COVID-19 VACCINE(3 - Booster for Pfizer series) due on 03/25/2021 DEPRESSION ASSESSMENT Never done INFLUENZA(1) due on 03/01/2022 PAP TESTING due on 01/24/2025 HPV TESTING due on 01/24/2025 DTAP,TDAP,TD(3 - Td or Tdap) due on 03/18/2030 HEPATITIS C SCREENING Discontinued HIV SCREENING Discontinued Data reviewed Component Latest Ref Rng & Units 03/22/2021 09/21/2021 Protein, Total 6.3 - 8.0 g/dL 7.8 Albumin 3.9 - 4.9 g/dL 4.2 Calcium 8.5 - 10.2 mg/dL 9.4 Bilirubin, Total 0.2 - 1.3 mg/dL 0.4 Alkaline Phosphatase 34 - 123 U/L 43 AST 13 - 35 U/L 24 ALT 7 - 38 U/L 19 Glucose 74 - 99 mg/dL 102 (H) BUN 7 - 21 mg/dL 11 Creatinine 0.58 - 0.96 mg/dL 0.75 Sodium 136 - 144 mmol/L 138 Potassium 3.7 - 5.1 mmol/L 4.2 Chloride 97 - 105 mmol/L 104 CO2 22 - 30 mmol/L 22 Anion Gap 9 - 18 mmol/L 12 eGFR >=60 mL/min/1.73m 101 Total Cholesterol, Nonfasting <200 mg/dL 174 Triglycerides, Nonfasting <150 mg/dL 139 HDL Cholesterol, Nonfasting >39 mg/dL 35 (L) LDL Cholesterol, Nonfasting <100 mg/dL 111 (H) Non HDL Cholesterol, Nonfasting <130 mg/dL 139 (H) VLDL Cholesterol, Nonfasting <30 mg/dL 28 Total Chol/HDL Ratio, Nonfasting <5.10 mg/dL 4.97 LDL/HDL Ratio, Nonfasting <2.54 mg/dL 3.17 (H) Hemoglobin A1C 4.3 - 5.6 % 6.1 (H) 6.1 (H) Estimated Average Glucose mg/dL 128 128 TSH 0.270 - 4.200 uU/mL 1.670 A/P ASSESSMENT/PLAN: 1. Well adult exam - ICD9: V70.0, ICD10: Z00.00 (primary diagnosis) - Counseled on healthy diet and regular exercise - Calcium intake with supplements or by diet of 1000 mg/day for under 50, 1981-7585 mg/day for 50+ - Discussed need and benefit for weight loss. BMI 43.87 kg/(m^2) - Patient was counseled [id number] by myself (the billing provider) for the following immunizations and vaccine components, including side effects: COVID-19 and Influenza. Patient consents for immunization and understands risks and benefits. A VIS sheet on each immunization was given to the patient. - Follow up for annual exam in one year - LIPID PANEL, NONFASTING 2. Migraine without aura and without status migrainosus, not intractable - ICD9: 346.10, ICD10: G43.009 - clinically doing well. 3. Generalized anxiety disorder - ICD9: 300.02, ICD10: F41.1 - clinically stable 4. Elevated hemoglobin A1c - ICD9: 790.29, ICD10: R73.09 Check - HGB A1C 5. Severe obstructive sleep apnea - ICD9: 327.23, ICD10: G47.33 - seeing sleep med and is waiting to get a machine. 6. Obesity, Class III, BMI 40-49.9 (morbid obesity) (HCC) - ICD9: 278.01, ICD10: E66.01 Stable - Behavioral intervention 7. Allergic rhinitis, unspecified seasonality, unspecified trigger - ICD9: 477.9, ICD10: J30.9 - clinically stable 8. Family history of thyroid disease - ICD9: V18.19, ICD10: Z83.49 Check - TSH BLD 9. Encounter for lipid screening for cardiovascular disease - ICD9: V77.91, V81.2, ICD10: Z13.220, Z13.6 Check - LIPID PANEL, NONFASTING 10. Medication management - ICD9: V58.69, ICD10: Z79.899 Check - CBC + DIFF 11. Encounter for immunization - ICD9: V03.89, ICD10: Z23 - INFLUENZA VACCINE QUADRIVALENT 6 MO - 64 YRS IM: given - Tr[employer] COVID-19 BIVALENT BOOSTER VACCINE, AGE 12+ YR: given 12. Elevated blood pressure reading without diagnosis of hypertension - ICD9: 796.2, ICD10: R03.0 - Encouraged dietary sodium restriction/DASH diet - Recommended regular aerobic exercise. - Recommend home blood pressure monitoring, to bring results in on next visit - Recheck in 3 weeks, sooner if needed. - Goal of BP <130/80 13. Numbness and tingling in both hands - ICD9: 782.0, ICD10: R20.0, R20.2 - will check NCS/EMG's at [place]. F/u 6 months routine [place] BP check in 3 weeks Calvin Vega MD documented in this encounter [facility] 03-28-2022 Miscellaneous Notes Information faxed to [email or web address] of patient's choice. Patient to contact company to check on the fax being received and if needing further information. Milana Roche LPN Spoke with patient concerning [email or web address] company, has decided to use [employer]. Her uses the same company. Aware pertinent information will be faxed to [employer]. Milana Roche LPN documented in this encounter [facility] 03-19-2022 History of Present illness Narrative NEW PATIENT (CONSULT) HISTORY AND PHYSICAL EXAM (Virtual Visit with Video) PRIMARY CARE PHYSICIAN: Calvin Vega MD REASON FOR CONSULT: ALISIA REFERRING PHYSICIAN: Calvin Vega MD CHIEF COMPLAINT: Sleep apnea For this virtual visit, the patient has been identified by name and (MRN and photo identification as well if available). Those taking part in visit: Patient and physician via [employer]. Consent for this visit received from patient. HISTORY OF PRESENT ILLNESS: Jaye Patterson is a 46 year old female, with prior sleep study on 04/04/18 showing AHI of 30.0 with REM index of 45.0 and supine index of 31.0. Min O2 saturation was 85%. Patient states she never followed up at the time due to the cost of further testing for PAP titration. States she tries to sleep on her side. If she can stay off-supine she is much more tolerable to her . States does snore at night, that are worse when allergies are acting up. Does doze off during movies, and will wake self up due to hearing herself snore. No issues falling asleep. She does wake up during the night and for unknown reasosn. When was sleeping supine would wake up coughing and gasping. Bedtime is about 9PM. No RLS symptoms. Usually wakes by 5AM. No parasomnias. No s/s of narcolepsy tetrad. Can wake in AM with headaches but pt reports symptoms more consistent with TMJ and does report history of bruxism. Sleep Questionnaire Data Depression Screening 03/07/2018 10/28/2020 03/18/2022 PHQ-2 Score 0 0 1 PHQ-9 Score - - 5 PED PHQ-9 03/07/2018 10/28/2020 03/18/2022 Little interest or pleasure in doing things - Not at all Several days Feeling down, depressed, or hopeless - Not at all Not at all Trouble falling or staying asleep, or sleeping too much - - Several days Feeling tired or having little energy - - Several days Poor appetite or overeating - - Several days Feeling bad about yourself - or that you are a failure or have let yourself or your family down - - Not at all Trouble concentrating on things, such as reading the newspaper or watching television - - Several days Moving or speaking so slowly that other people could have noticed. Or the opposite - being so fidgety or restless that you have been moving around a lot more than usual - - Not at all Thoughts that you would be better off , or of hurting yourself in some way - - Not at all If you checked off any problems, how difficult have these problems made it for you to do your work, take care of things at home, or get along with other people? - - Somewhat difficult PHQ-9 Score - - 5 (Mild Depression) [place] Sleepiness Scale 03/07/2018 10/28/2020 03/18/2022 Score - - 7 (No daytime sleepiness) Insomnia Severity Index 03/07/2018 10/28/2020 03/18/2022 Score - - 10 REVIEW OF SYSTEMS GENERAL:No weight loss, malaise or fevers. HEENT:Negative for frequent or significant headaches, No changes in hearing or vision, no nose bleeds or other nasal problems NECK:Negative for lumps, goiter, pain and significant neck swelling RESPIRATORY: Negative for cough, wheezing or shortness of breath. CARDIOVASCULAR: Negative for chest pain, leg swelling or palpitations. GASTROINTESTINAL: Negative for abdominal discomfort, blood in stools or black stools or change in bowel habits GENITOURINARY: No history of dysuria, frequency or incontinence MUSCULOSKELETAL: Negative for joint pain or swelling, back pain or muscle pain. NEUROLOGIC:Negative for focal numbness or weakness, headaches and dizziness or syncope, vision changes, speech/language changes, changes in gait or falls -- besides those complaints as above in HPI. SKIN:Negative for lesions, rash, and itching. HEMATOLOGIC/LYMPHATIC/IMMUNOLOGIC: Negative for prolonged bleeding, bruising easily or swollen nodes. ENDOCRINE: Negative for cold or heat intolerance, polyuria, polydipsia and goiter. The remainder of the ROS was reviewed and is negative. LAB/IMAGING: Reviewed and include: WBC (k/uL) Date Value 08/26/2017 8.50 RBC (m/uL) Date Value 08/26/2017 4.56 Hemoglobin (g/dL) Date Value 08/26/2017 12.9 Hematocrit (%) Date Value 08/26/2017 40.3 MCV (fL) Date Value 08/26/2017 88.4 MCH (pG) Date Value 08/26/2017 28.3 MCHC (g/dL) Date Value 08/26/2017 32.0 RDW-CV (%) Date Value 08/26/2017 12.7 Platelet Count (k/uL) Date Value 08/26/2017 272 MPV (fL) Date Value 08/26/2017 11.3 Glucose (mg/dL) Date Value 09/21/2021 102 (H) BUN (mg/dL) Date Value 09/21/2021 11 Creatinine (mg/dL) Date Value 09/21/2021 0.75 Sodium (mmol/L) Date Value 09/21/2021 138 Potassium (mmol/L) Date Value 09/21/2021 4.2 Chloride (mmol/L) Date Value 09/21/2021 104 CO2 (mmol/L) Date Value 09/21/2021 22 Protein, Total (g/dL) Date Value 09/21/2021 7.8 Albumin (g/dL) Date Value 09/21/2021 4.2 Calcium, Total (mg/dL) Date Value 09/21/2021 9.4 Alkaline Phosphatase (U/L) Date Value 09/21/2021 43 Bilirubin, Total (mg/dL) Date Value 09/21/2021 0.4 AST (U/L) Date Value 09/21/2021 24 ALT (U/L) Date Value 09/21/2021 19 VALENTIN (no units) Date Value 08/26/2017 Negative Rheumatoid Factor (IU/mL) Date Value 08/26/2017 <10 MEDICATIONS: fluticasone (FLONASE) 50 mcg/actuation nasal spray^Use 2 Sprays in each nostril once daily.^Disp: 1 Each^Rfl: 11 SUMAtriptan (IMITREX) 100 mg tablet^Take 1 tablet by mouth as needed for Migraine Headache (see administration instructions).^Disp: 12 tablet^Rfl: 3 levonorgestrel-ethinyl estradiol (MAHIN, 28,) 0.15-0.03 mg per tab^Take 1 tablet by mouth once daily.^Disp: ^Rfl: MULTIVITAMIN/IRON/FOLIC ACID (DAILY MULTI ORAL)^Take 1 tablet by mouth once daily.^Disp: ^Rfl: ibuprofen (MOTRIN) 200 mg tablet^Take 200 mg by mouth every 6 hours as needed.^Disp: ^Rfl: HISTORIES PAST MEDICAL HISTORY Diagnosis Date Allergic rhinitis 02/24/2016 Chronic pain of left knee 03/07/2018 Elevated hemoglobin A1c 03/22/2021 Family history of early CAD 08/27/2016 Family history of thyroid disease 03/22/2021 Generalized anxiety disorder 08/27/2016 Migraine without aura and without status migrainosus, not intractable 02/22/2015 Obesity, Class III, BMI 40-49.9 (morbid obesity) ([facility]) 11/20/2017 Severe obstructive sleep apnea 04/21/2018 Thyroid nodule 06/30/2014 Well adult exam 08/25/2014 LAst done 03/18/2020 FAMILY HISTORY Problem Relation Age of Onset Colon Cancer Paternal Grandmother Cervical Cancer Maternal Grandmother Hypertension Maternal Grandmother Coronary Artery Disease Father 55 Diabetes Maternal Aunt Diabetes Maternal Aunt Hypertension Mother Hypertension Maternal Grandfather Stroke Maternal Grandfather Hypertension Maternal Aunt Hypertension Maternal Uncle Prostate Cancer Paternal Grandfather Thyroid Maternal Aunt Coronary Artery Disease Maternal Aunt 40's SOCIAL HISTORY Social History Tobacco Use Smoking status: Never Smokeless tobacco: Never Substance Use Topics Alcohol use: Yes Comment: rare Drug use: No PHYSICAL EXAMINATION LMP 09/14/2021 (Approximate) GENERAL EXAM: General appearance: NAD, pleasant. HEENT: NC/AT, nasal congestion absent, no oral lesions, membranes moist. Reese IV. NECK: ROM nml. Lungs: No audible cough, wheeze, sob. NEUROLOGICAL EXAM: General: Awake, alert, oriented x3 (person,place,time), speech fluent, no dysarthria; comprehension, naming, repetition intact. CN: EOMI, facae symmetric, hearing is intact, palate and tongue movements are intact and symmetric. SCM and trapezius strength symmetric. Motor: GREGG equal and symmetric. Assessment and Plan: 1. Severe obstructive sleep apnea - ICD9: 327.23, ICD10: G47.33 (primary diagnosis) 2. Class 3 severe obesity with body mass index (BMI) of 40.0 to 44.9 in adult, unspecified obesity type, unspecified whether serious comorbidity present (HCC) - ICD9: 278.01, V85.41, ICD10: E66.01, Z68.41 Patient with sever ALISIA with contributing factors of obesity, crowded airway, as well as family history of ALISIA. Discussed with patient: the physiology of OSAS, medical conditions associated with OSAS (DM, HTN, CAD, Depression, Stroke, Headache...) and treatment options (UPPP, Dental appliances, CPAP...). Given the severity of patient's OSAS and its etiology (by physical exam findings) as well as history of bruxims and TMJ sxs, feel PAP therapy will be most successful in normalizing the AHI. PAP has been explained to the patient in detail, and the patient agrees with this therapy. Patient would like to avoid going into the sleep lab for multiple reasons including costs. Thus, will first attempt to treat with AutoPAP given no history of cardiac or pulmonary disorder and pt's prior study showing obstructive respiratory events. However, if insurance requests a new sleep study, will then proceed with HSAT to verify dx. Pt is understanding and agrees with plan. Pt will follow up in ~4 months to see how she is doing on therapy or sooner prn. Advised patient to avoid activities that could harm self or others when tired/sleepy, including driving and/or operating heavy machinery. Encouraged weight loss, and continued compliance with other medications. Aydee Eckert MD I spent a total of 35 minutes on the date of the service which included preparing to see the patient, [id number] patient care, completing clinical documentation, obtaining and/or reviewing separately obtained history, performing a medically appropriate examination, counseling and educating the patient/family/caregiver, ordering medications, tests, or procedures, independently interpreting results (not separately reported), and communicating results to the patient/family/caregiver. documented in this encounter [facility] 09-22-2021 Miscellaneous Notes Pt notified of same and verbalizes understanding. Edita Saldana LPN a1c is still 6.1%. Watch carbs and sugar. Thanks. Hosea Tucker PA-C documented in this encounter [facility] 01-25-2021 Note 85 Date of Procedure: 01/25/2021 Pathologist: [facility], Cytology Date Reported: 02/01/2021 Date Received: 01/26/2021 Submitting Physician: HARLEEN WILSON MD Attending Physician: HARLEEN WILSON MD FINAL CYTOLOGICAL INTERPRETATION A. THINPREP PAP CERVICAL: Specimen adequacy: SATISFACTORY FOR EVALUATION. Quality Indicator: Endocervical/transformation zone component is present. General Categorization: NEGATIVE FOR INTRAEPITHELIAL LESION OR MALIGNANCY. Ancillary Testing: Specimen does not meet the requisition-stated criteria for HPV testing. See Pap test interpretation above. This specimen has been analyzed by the Mover[employer] Imaging System ([employer] an automated imaging and review system, which assists the laboratory in evaluating cells on ThinPrep Pap tests. Following automated imaging, selected ramirez from every slide were reviewed by a sludge filtration operator and/or pathologist. Electronically Signed Out By [facility], Cytology//TFP By the signature on this report, the individual or group listed as making the Final Interpretation/Diagnosis certifies that they have reviewed this case. Educational Note: Cervical cytology is a screening procedure primarily for squamous cancers and precursors and has associated false-negative and false-positive results as evidenced by published data. Your patient?s test should be interpreted in this context, together with patient?s history and clinical findings. Regular sampling and follow-up of unexplained clinical signs and symptoms are recommended to minimize false negative results. Clinical History Date of Last Menstrual Period: 01/04/2021 Other Clinical Conditions: HPV Reflex for ASC-US only - Include HPV Genotype Annual Clinical Diagnosis History: Encounter for Papanicolaou smear of cervix - (Z12.4); Women's annual routine gynecological examination - (Z01.419) Source of Specimen A: THINPREP PAP CERVICAL [facility] Department of Pathology [address] [place] [address] documented as of this encounter (statuses as of 09/22/2021) [facility]12-09-2016 History of Past illness Narrative* Problem Noted Date Resolved Date GERD without esophagitis 06/08/2016 016 documented as of this encounter (statuses as of 03/19/2022) [facility] History of Past illness Narrative* Problem Noted Date Resolved Date GERD without esophagitis 06/08/2016 016 documented as of this encounter (statuses as of 03/28/2022) [facility]2016 History of Past illness Narrative* Problem Noted Date Resolved Date GERD without esophagitis 06/08/2016 016 documented as of this encounter (statuses as of 04/06/2022) [facility]2016 History of Past illness Narrative* Problem Noted Date Resolved Date GERD without esophagitis 06/08/2016 016 documented as of this encounter (statuses as of 04/06/2022) [facility]2016 History of Past illness Narrative* Problem Noted Date Resolved Date GERD without esophagitis 06/08/2016 016 documented as of this encounter (statuses as of 04/09/2022) [facility] History of Past illness Narrative* Problem Noted Date Resolved Date GERD without esophagitis 06/08/2016 016 documented as of this encounter (statuses as of 05/10/2022) [facility] History of Past illness Narrative* Problem Noted Date Resolved Date GERD without esophagitis 06/08/2016 016 documented as of this encounter (statuses as of 06/01/2022) [facility] History of Past illness Narrative* Problem Noted Date Resolved Date GERD without esophagitis 06/08/2016 016 documented as of this encounter (statuses as of 06/14/2022) [facility] History of Past illness Narrative* Problem Noted Date Resolved Date GERD without esophagitis 06/08/2016 016 documented as of this encounter (statuses as of 06/18/2022) [facility] History of Past illness Narrative* Problem Noted Date Resolved Date GERD without esophagitis 06/08/2016 016 documented as of this encounter (statuses as of 07/05/2022) [facility] History of Past illness Narrative* Problem Noted Date Resolved Date GERD without esophagitis 06/08/2016 016 documented as of this encounter (statuses as of 07/05/2022) [facility] History of Past illness Narrative* Problem Noted Date Resolved Date GERD without esophagitis 06/08/2016 016 documented as of this encounter (statuses as of 07/06/2022) [facility] History of Past illness Narrative* Problem Noted Date Resolved Date GERD without esophagitis 06/08/2016 016 documented as of this encounter (statuses as of 07/19/2022) [facility] History of Past illness Narrative* Problem Noted Date Resolved Date GERD without esophagitis 06/08/2016 016 documented as of this encounter (statuses as of 07/20/2022) [facility] History of Past illness Narrative* Problem Noted Date Resolved Date GERD without esophagitis 06/08/2016 016 documented as of this encounter (statuses as of 08/13/2022) [facility] History of Past illness Narrative* Problem Noted Date Resolved Date GERD without esophagitis 06/08/2016 016 documented as of this encounter (statuses as of 08/23/2022) [facility] History of Past illness Narrative* Problem Noted Date Resolved Date GERD without esophagitis 06/08/2016 016 documented as of this encounter (statuses as of 09/04/2022) [place] [address]-09-2016 History of Past illness Narrative* Problem Noted Date Resolved Date GERD without esophagitis 06/08/2016 016 documented as of this encounter (statuses as of 09/11/2022) [facility] History of Past illness Narrative* Problem Noted Date Resolved Date GERD without esophagitis 06/08/2016 016 documented as of this encounter (statuses as of 09/14/2022) [address]09-2016 History of Past illness Narrative* Problem Noted Date Resolved Date GERD without esophagitis 06/08/2016 016 documented as of this encounter (statuses as of 09/20/2022) [facility] History of Past illness Narrative* Problem Noted Date Resolved Date GERD without esophagitis 06/08/2016 016 documented as of this encounter (statuses as of 10/04/2022) [facility] History of Past illness Narrative* Problem Noted Date Resolved Date GERD without esophagitis 06/08/2016 016 documented as of this encounter (statuses as of 10/05/2022) [facility] History of Past illness Narrative* Problem Noted Date Resolved Date GERD without esophagitis 06/08/2016 016 documented as of this encounter (statuses as of 10/10/2022) [facility] History of Past illness Narrative* Problem Noted Date Diagnosed Date Resolved Date GERD without esophagitis 06/08/201603/2016 documented as of this encounter (statuses as of 01/28/2023) [facility] History of Past illness Narrative* Problem Noted Date Diagnosed Date Resolved Date GERD without esophagitis 06/08/201603/2016 documented as of this encounter (statuses as of 04/09/2023) [facility] History of Past illness Narrative* Problem Noted Date Diagnosed Date Resolved Date GERD without esophagitis 06/08/201603/2016 documented as of this encounter (statuses as of 05/05/2023) [facility] History of Past illness Narrative* Problem Noted Date Diagnosed Date Resolved Date GERD without esophagitis 06/08/201603/2016 documented as of this encounter (statuses as of 05/05/2023) [facility] History of Past illness Narrative* Problem Noted Date Diagnosed Date Resolved Date GERD without esophagitis 06/08/201603/2016 documented as of this encounter (statuses as of 05/14/2023) [facility] History of Past illness Narrative* Problem Noted Date Diagnosed Date Resolved Date GERD without esophagitis 06/08/201603/2016 documented as of this encounter (statuses as of 05/16/2023) [facility] History of Past illness Narrative* Problem Noted Date Diagnosed Date Resolved Date GERD without esophagitis 06/08/201603/2016 documented as of this encounter (statuses as of 05/30/2023) [facility] History of Past illness Narrative* Problem Noted Date Diagnosed Date Resolved Date GERD without esophagitis 06/08/201603/2016 documented as of this encounter (statuses as of 06/13/2023) [facility] History of Past illness Narrative* Problem Noted Date Diagnosed Date Resolved Date GERD without esophagitis 06/08/201603/2016 documented as of this encounter (statuses as of 06/20/2023) [facility] History of Past illness Narrative* Problem Noted Date Diagnosed Date Resolved Date GERD without esophagitis 06/08/201603/2016 documented as of this encounter (statuses as of 06/21/2023) [facility] Diagnosis Severe obstructive sleep apnea- Primary Obstructive sleep apnea (adult) (pediatric) Class 3 severe obesity with body mass index (BMI) of 40.0 to 44.9 in adult, unspecified obesity type, unspecified whether serious comorbidity present (HCC) [facility] Diagnosis Severe obstructive sleep apnea Obstructive sleep apnea (adult) (pediatric) [facility] Diagnosis Well adult exam- Primary Routine general medical examination at a health care facility Migraine without aura and without status migrainosus, not intractable Migraine without aura, without mention of intractable migraine without mention of status migrainosus Generalized anxiety disorder Elevated hemoglobin A1c Other abnormal blood chemistry Severe obstructive sleep apnea Obstructive sleep apnea (adult) (pediatric) Obesity, Class III, BMI 40-49.9 (morbid obesity) (HCC) Morbid obesity Allergic rhinitis, unspecified seasonality, unspecified trigger Family history of thyroid disease Family history of other endocrine and metabolic diseases Encounter for lipid screening for cardiovascular disease Screening for lipoid disorders Medication management Encounter for long-term (current) use of other medications Encounter for immunization Need for other specified prophylactic vaccination against single bacterial disease Elevated blood pressure reading without diagnosis of hypertension Numbness and tingling in both hands [facility] Diagnosis Medication management- Primary Encounter for long-term (current) use of other medications documented in this encounter [facility] note* Diagnosis Hypertension, essential Unspecified essential hypertension [facility] Diagnosis Carpal tunnel syndrome, bilateral Carpal tunnel syndrome [facility] [facility] note* Diagnosis Hypertension, essential- Primary Unspecified essential hypertension Carpal tunnel syndrome, bilateral Carpal tunnel syndrome Medication management Encounter for long-term (current) use of other medications documented in this encounter [facility] note* Diagnosis Hypertension, essential Unspecified essential hypertension documented in this encounter [facility] note* Diagnosis Hypertension, essential- Primary Unspecified essential hypertension Medication management Encounter for long-term (current) use of other medications Fibroids Leiomyoma of uterus, unspecified [facility]* Diagnosis Hypertension, essential Unspecified essential hypertension documented in this encounter [facility] note* Diagnosis Primary hypertension- Primary Unspecified essential hypertension documented in this encounter [facility] note* Diagnosis Hypertension, essential Unspecified essential hypertension documented in this encounter [facility] note* Diagnosis ALISIA on CPAP- Primary Obstructive sleep apnea (adult) (pediatric) Class 3 severe obesity with body mass index (BMI) of 40.0 to 44.9 in adult, unspecified obesity type, unspecified whether serious comorbidity present (HCC) [E66.01, Z68.41 (ICD-10-CM)] documented in this encounter [facility] note* Diagnosis Primary hypertension Unspecified essential hypertension [facility]* Diagnosis Primary hypertension Unspecified essential hypertension documented in this encounter [facility] note* Diagnosis Hypertension, essential- Primary Unspecified essential hypertension Migraine without aura and without status migrainosus, not intractable Migraine without aura, without mention of intractable migraine without mention of status migrainosus Severe obstructive sleep apnea Obstructive sleep apnea (adult) (pediatric) Family history of thyroid disease Family history of other endocrine and metabolic diseases Elevated hemoglobin A1c Other abnormal blood chemistry Generalized anxiety disorder Obesity, Class III, BMI 40-49.9 (morbid obesity) (HCC) Morbid obesity Family history of early CAD Family history of ischemic heart disease Primary hypertension Unspecified essential hypertension Screening for colon cancer Special screening for malignant neoplasms, colon documented [facility]* Diagnosis Screening for colon cancer Special screening for malignant neoplasms, colon [facility] Diagnosis Encounter for screening mammogram for breast cancer [facility] Diagnosis Well adult exam- Primary Routine general medical examination at a health care facility Hypertension, essential Unspecified essential hypertension Migraine without aura and without status migrainosus, not intractable Migraine without aura, without mention of intractable migraine without mention of status migrainosus Generalized anxiety disorder Obesity, Class II, BMI 35-39.9 Obesity, unspecified Thyroid nodule Nontoxic uninodular goiter Severe obstructive sleep apnea Obstructive sleep apnea (adult) (pediatric) Need for vaccination Need for prophylactic vaccination and inoculation against unspecified single disease Right-sided abdominal pain of unknown cause Abdominal pain, unspecified abdominal location Elevated hemoglobin A1c Other abnormal blood chemistry [facility] Diagnosis Screening for colon cancer- Primary Special screening for malignant neoplasms, colon [facility] Diagnosis Right-sided abdominal pain of unknown cause Abdominal pain, unspecified abdominal location [facility]* Diagnosis Ovarian cyst, right Other and unspecified ovarian cyst Pelvic pain in female Unspecified symptom associated with female genital organs [facility] Diagnosis Primary hypertension Unspecified essential hypertension [facility] Diagnosis Encounter for gynecological examination with abnormal finding- Primary Routine gynecological examination Screening for cervical cancer Screening for malignant neoplasm of the cervix Encounter for screening for human papillomavirus (HPV) Special screening examination for human papillomavirus (HPV) Encounter for screening mammogram for breast cancer Benign teratoma of left ovary Menorrhagia with regular cycle Excessive or frequent menstruation Dysmenorrhea Adenomyosis Endometriosis of uterus [facility] Diagnosis Menorrhagia with regular cycle- Primary Excessive or frequent menstruation Benign teratoma of right ovary Adenomyosis Endometriosis of uterus [facility]* Diagnosis Encounter for screening mammogram for breast cancer [facility] NarrativePresents for annual exam. She voices no complaints and is doing well. Denies any bowel or bladder pr oblems. Denies any breast problems. She is doing well on the control pills. Patient has noticed some lower right pelvic pain intermittently that typically is around the time of her menstrual flow. She states she has a history of uterine fibroid. Denies any intermenstrual bleeding.DNP [employer] Phone: History of Present illness NarrativePatient presents for follow-up visit to review recent pelvic ultrasound due to history of uterine fibroids. She is currently on control pills and is doing well. Denies any abdominal pain, bowelor bladder problems.DNP [employer] Phone: Instructions* Name Dates Details Instructions not documented DNP [employer] Phone: Reason for referral (narrative)* Outpatient Procedure (Routine) - Pending Review Specialty Diagnoses / Procedures Referred By Contac t [facility] Diagnoses Primary hypertension Procedures ECG COMPLETE ECG ROUTINE ECG W/LEAST 12 LDS W/I&R Lindsay Herrera APRN.CNP [address] [place] [address] [facility] [address] [address] Referral ID Status Reason Start Date Expiration Date Visits Requested Visits Authorized [id number] Pending Review Auto-Generat ed Referral 09/20/2022 09/20/2023 1 1 [facility] for referral (narrative)* Outpatient Procedure (Routine) - Pending Review Specialty Diagnoses / Procedures Referred By Destinac t Referred To Contact [facility] Diagnoses Screening for colon cancer Procedures COLONOSCOPY SCREENING COLONOSCOPY FLX DX W/COLLJ SPEC WHEN Radha Boo MD [address] [place] [address] [facility] [address] [address] Referral ID Status Reason Start Date Expiration Date Visits Requested Visits Authorized [id number] Pending Review Auto-Generat ed Referral 10/08/2022 10/09/2023 1 1 [facility] for referral (narrative)* Diagnostic Procedure Only (Routine) - Pending Review Specialty Diagnoses / Procedures Referred By Contac t Referred To Contact [facility] Diagnoses Encounter for screening mammogram for breast cancer Procedures KHURRAM SCREENING SCREENING MAMMOGRAPHY BI 2-VIEW BREAST INC CAD Calvin Vega MD [address] [place] [address] [facility] [address] [place] [address] Referral ID Status Reason Start Date Expiration Date Visits Requested Visits Authorized [id number] Pending Review Auto-Generat ed Referral 01/23/2023 02/22/2024 1 1 T [facility] for referral (narrative)* Outpatient Procedure (Routine) - Closed Specialty Diagnoses / Procedures Referred By Hamilton porter Referred To Contact [facility] Diagnoses Screening for colon cancer Procedures COLONOSCOPY SCREENING COLONOSCOPY FLX DX W/COLLJ SPEC WHEN Radha Boo MD [address] [place] [address] [facility] [address] [place] [id number] Referral ID Status Reason Start Date Expiration Date V isits Requested Visits Authorized [id number] Closed Auto-Generate d Referral 10/26/2022 10/26/2022 1 1 T [facility] for referral (narrative)* Diagnostic Procedure Only (Routine) - Authorized Specialty Diagnoses / Procedures [facility] Diagnoses Encounter for gynecological examination (general) (routine) without abnormal findings Encounter for screening mammogram for breast cancer Procedures KHURRAM SCREENING W FABRIZIO SCREENING DIGITAL BREAST TOMOSYNTHESIS BI SCREENING MAMMOGRAPHY BI 2-VIEW BREAST INC CAD Barry Garcia MD [address] [place] [address] [facility] [address] [place] [address] Referral ID Status Reason Start Date Expiration Date Visits Requested Visits Authorized [id number] Authorized Auto-Generat ed Referral 3 06/28/2024 1 1 [facility] for visit Narrative* Outpatient Procedure (Routine) - Closed Specialty Diagnoses / Procedures Referred By Hamilton porter Referred To [facility] Diagnoses Screening for colon cancer Procedures COLONOSCOPY SCREENING COLONOSCOPY FLX DX W/COLLJ SPEC WHEN Radha Boo MD [address] [place] [address] [facility] [address] [place] [address] Referral ID Status Reason Start Date Expiration Date V isits Requested Visits Authorized [id number] Closed Auto-Generate d Referral 10/26/2022 10/26/2022 1 1 [facility] for visit Narrative* Diagnostic Procedure Only (Routine) - Closed Specialty Diagnoses / Procedures Referred By Hamilton porter Referred To Contact [facility] Diagnoses Encounter for screening mammogram for breast cancer Procedures KHURRAM SCREENING SCREENING MAMMOGRAPHY BI 2-VIEW BREAST INC CAD Calvin Vega MD [address] [place] [address] [facility] [address] [place] [address] Referral ID Status Reason Start Date Expiration Date V isits Requested Visits Authorized [id number] Closed Auto-Generate d Referral 01/23/2023 02/22/2024 1 1 [facility] Summary Purpose Family History No Family History Records Found aunt Name Dates Details Family history of cardiac di sorder(V17.49, Z82.49) Status:Active Mother Name Dates Details No pertinent family history( V49.89, Z78.9) Status:Active Father Name Dates Details Family history of cardiac di sorder(V17.49, Z82.49) Status:Active Family history of malignant neoplasm of prostate(V16.42, Z80.42) Status:Active aunt Name Dates Details Family history of cardiac di sorder(V17.49, Z82.49) Status:Active Mother Name Dates Details No pertinent family history( V49.89, Z78.9) Status:Active Father Name Dates Details Family history of cardiac di sorder(V17.49, Z82.49) Status:Active Family history of malignant neoplasm of prostate(V16.42, Z80.42) Status:Active Unknown Family Member Name Dates Details No pertinent family history: Mother(V49.89, Z78.9) Status:Active Family history of cardiac di sorder: Father, Aunt(V17.49, Z82.49) Status:Active Family history of malignant neoplasm of prostate: Father(V16.42, Z80.42) Status:Active Unknown Family Member Name Dates Details No pertinent family history: Mother(V49.89, Z78.9) Status:Active Family history of cardiac di sorder: Father, Aunt(V17.49, Z82.49) Status:Active Family history of malignant neoplasm of prostate: Father(V16.42, Z80.42) Status:Active Unknown Family Member Name Dates Details No pertinent family history: Mother(V49.89, Z78.9) Status:Active Family history of cardiac di sorder: Father, Aunt(V17.49, Z82.49) Status:Active Family history of malignant neoplasm of prostate: Father(V16.42, Z80.42) Status:Active Unknown Family Member Name Dates Details Family history of malignant neoplasm of prostate: Father(V16.42, Z80.42) Status:Active Family history of cardiac di sorder: Father, Aunt(V17.49, Z82.49) Status:Active No pertinent family history: Mother(V49.89, Z78.9) Status:Active Unknown Family Member Name Dates Details No pertinent family history: Mother(V49.89, Z78.9) Status:Active Family history of cardiac di sorder: Father, Aunt(V17.49, Z82.49) Status:Active Family history of malignant neoplasm of prostate: Father(V16.42, Z80.42) Status:Active Unknown Family Member Name Dates Details No pertinent family history: Mother(V49.89, Z78.9) Status:Active Family history of cardiac di sorder: Father, Aunt(V17.49, Z82.49) Status:Active Family history of malignant neoplasm of prostate: Father(V16.42, Z80.42) Status:Active Advance Directives No Advanced Directives Records FoundDocuments on File Type Date Recorded Patient Rib Bender Expl anation Advance Directive(s) 06/08/2016 3:41 PM Chief Complaint PATIENT IS HERE FOR YEARLY EXAM AND PAP TEST. LMP: 01/04/2021. PATIENT DOES SELF BREAST EXAMS AND STATES SHE HAS LOWER RIGHT PELVIC PAIN.PT HERE FOR F/U RESULTS. PT HAS NO NEW CONCERNS Reason for Referral Specialty Diagnoses / Procedures Referred By Hamilton t Referred To Contact [employer] Diagnoses Fibroids Procedures CONSULT TO GYNECOLOGY OFFICE/OUTPATIENT [facility] 60-74 MINUTES Lindsay Herrera APRN.[employer] [address] [place] [address] Bon Alexis MD [address] [phone] Referral ID Status Reason Start Date Expiration Date Visits Requested Visits Authorized [id number] Authorized PCP Requested Referral Auto-Generate d Referral 07/19/2022 07/19/2023 1 1 Specialty Diagnoses / Procedures Referred By Hamilton t Referred To Contact [facility] Diagnoses Screening for colon cancer Procedures CONSULT TO GENERAL SURGERY OFFICE/OUTPATIENT [facility] 60-74 MINUTES Hosea Tucker PA-C [address] [place] [address] Referral ID Status Reason Start Date Expiration Date Visits Requested Visits Authorized [id number] Authorized PCP Requested Referral 10/04/2022 10/04/2023 1 1 Specialty Diagnoses / Procedures Referred By Hamilton t Referred To Contact [facility] Diagnoses Right-sided abdominal pain of unknown cause Abdominal pain, unspecified abdominal location Procedures CT ABD/PEL W IVCON CT ABD & PELVIS W/CONTRAST Calvin Vega MD [address] [place] [address] Ct Imaging [id number] Referral ID Status Reason Start Date Expiration Date Visits Requested Visits Authorized [id number] Authorized Auto-Generat ed Referral 04/17/2023 1 1 Referral ID Status Reason Start Date Expiration Date V isits Requested Visits Authorized [id number] Closed Auto-Generate d Referral 04/17/2023 04/17/2023 1 1 Medications Administered Section Inactive Administered Medications - up to 3 most recent administrations Medication Order MAR Action Action Date Dose Rate Site diphenhydrAMINE 12.5-50 mg injection (BENADRYL) 12.5-50 mg, INTRAVENOUS, DIRECTED, Starting on Sat10/26/22 at 1300, Until Sat10/26/22 at 1659, DOSING DIRECTED BY PHYSICIAN FOR PROCEDURAL SEDATION ONLY, Intraprocedure Given 10/26/2022 12:57 PM EDT 50 mg fentaNYL 50 mcg/mL 25-100 mcg injection (SUBLIMAZE) 25-100 mcg, INTRAVENOUS, DIRECTED, Starting on Sat10/26/22 at 1300, Until Sat10/26/22 at 1659, DOSING DIRECTED BY PHYSICIAN FOR PROCEDURAL SEDATION ONLY, Intraprocedure Given 10/26/2022 1:06 PM EDT 50 mcg Additional Source Comments INFORMATION SOURCE (unrecogn ized section and content) DATE CREATED AUTHOR AUTHOR'S ORGANIZ ATION 09/02/2018 [facility] DATE CREATED AUTHOR AUTHOR'S ORGANIZ ATION 01/13/2019 [facility] DATE CREATED AUTHOR AUTHOR'S ORGANIZ ATION 02/19/2021 [facility] DATE CREATED AUTHOR AUTHOR'S ORGANIZ ATION 02/19/2021 [facility] DATE CREATED AUTHOR AUTHOR'S ORGANIZ ATION 02/19/2021 [facility] DATE CREATED AUTHOR AUTHOR'S ORGANIZ ATION 09/12/2022 [facility] DATE CREATED AUTHOR AUTHOR'S ORGANIZ ATION 07/11/2023 [facility] Source Comments (unrecognize d section and content) In the event this informatio n is protected by the Federal Confidentiality of Alcohol and Drug Abuse Patient Records regulations: The Federal rules restrict any use of the information to criminally investigate or prosecute any alcohol or drug abuse patient.[facility] the event this information is protected by the Federal Confidentiality of Alcohol and Drug Abuse Patient Records regulations: The Federal rules restrict any use of the information to criminally investigate or prosecute any alcohol or drug abuse patient.[facility] GeneralIn the event this information is protected by the Federal Confidentiality of Alcohol and Drug Abuse Patient Records regulations: The Federal rules restrict any use of the information to criminally investigate or prosecute any alcohol or drug abuse patient.[facility] General[facility] the event this information is protected by the Federal Confidentiality of Alcohol and Drug Abuse Patient Records regulations: The Federal rules restrict any use of the information to criminally investigate or prosecute any alcohol or drug abuse patient.[facility] GeneralIn the event this information is protected by the Federal Confidentiality of Alcohol and Drug Abuse Patient Records regulations: The Federal rules restrict any use of the information to criminally investigate or prosecute any alcohol or drug abuse patient.[facility] GeneralIn the event this information is protected by the Federal Confidentiality of Alcohol and Drug Abuse Patient Records regulations: The Federal rules restrict any use of the information to criminally investigate or prosecute any alcohol or drug abuse patient.[facility] GeneralIn the event this information is protected by the Federal Confidentiality of Alcohol and Drug Abuse Patient Records regulations: The Federal rules restrict any use of the information to criminally investigate or prosecute any alcohol or drug abuse patient.[facility] GeneralIn the event this information is protected by the Federal Confidentiality of Alcohol and Drug Abuse Patient Records regulations: The Federal rules restrict any use of the information to criminally investigate or prosecute any alcohol or drug abuse patient.[facility] GeneralIn the event this information is protected by the Federal Confidentiality of Alcohol and Drug Abuse Patient Records regulations: The Federal rules restrict any use of the information to criminally investigate or prosecute any alcohol or drug abuse patient.[facility] GeneralIn the event this information is protected by the Federal Confidentiality of Alcohol and Drug Abuse Patient Records regulations: The Federal rules restrict any use of the information to criminally investigate or prosecute any alcohol or drug abuse patient.[facility] GeneralIn the event this information is protected by the Federal Confidentiality of Alcohol and Drug Abuse Patient Records regulations: The Federal rules restrict any use of the information to criminally investigate or prosecute any alcohol or drug abuse patient.[facility] GeneralIn the event this information is protected by the Federal Confidentiality of Alcohol and Drug Abuse Patient Records regulations: The Federal rules restrict any use of the information to criminally investigate or prosecute any alcohol or drug abuse patient.[facility] GeneralIn the event this information is protected by the Federal Confidentiality of Alcohol and Drug Abuse Patient Records regulations: The Federal rules restrict any use of the information to criminally investigate or prosecute any alcohol or drug abuse patient.[facility] GeneralIn the event this information is protected by the Federal Confidentiality of Alcohol and Drug Abuse Patient Records regulations: The Federal rules restrict any use of the information to criminally investigate or prosecute any alcohol or drug abuse patient.[facility] GeneralIn the event this information is protected by the Federal Confidentiality of Alcohol and Drug Abuse Patient Records regulations: The Federal rules restrict any use of the information to criminally investigate or prosecute any alcohol or drug abuse patient.[facility] GeneralIn the event this information is protected by the Federal Confidentiality of Alcohol and Drug Abuse Patient Records regulations: The Federal rules restrict any use of the information to criminally investigate or prosecute any alcohol or drug abuse patient.[facility] GeneralIn the event this information is protected by the Federal Confidentiality of Alcohol and Drug Abuse Patient Records regulations: The Federal rules restrict any use of the information to criminally investigate or prosecute any alcohol or drug abuse patient.[facility] GeneralIn the event this information is protected by the Federal Confidentiality of Alcohol and Drug Abuse Patient Records regulations: The Federal rules restrict any use of the information to criminally investigate or prosecute any alcohol or drug abuse patient.[facility] General[facility] the event this information is protected by the Federal Confidentiality of Alcohol and Drug Abuse Patient Records regulations: The Federal rules restrict any use of the information to criminally investigate or prosecute any alcohol or drug abuse patient.[facility] GeneralIn the event this information is protected by the Federal Confidentiality of Alcohol and Drug Abuse Patient Records regulations: The Federal rules restrict any use of the information to criminally investigate or prosecute any alcohol or drug abuse patient.[facility] GeneralIn the event this information is protected by the Federal Confidentiality of Alcohol and Drug Abuse Patient Records regulations: The Federal rules restrict any use of the information to criminally investigate or prosecute any alcohol or drug abuse patient.[facility] GeneralIn the event this information is protected by the Federal Confidentiality of Alcohol and Drug Abuse Patient Records regulations: The Federal rules restrict any use of the information to criminally investigate or prosecute any alcohol or drug abuse patient.[facility] GeneralIn the event this information is protected by the Federal Confidentiality of Alcohol and Drug Abuse Patient Records regulations: The Federal rules restrict any use of the information to criminally investigate or prosecute any alcohol or drug abuse patient.[facility] GeneralIn the event this information is protected by the Federal Confidentiality of Alcohol and Drug Abuse Patient Records regulations: The Federal rules restrict any use of the information to criminally investigate or prosecute any alcohol or drug abuse patient.[facility] GeneralIn the event this information is protected by the Federal Confidentiality of Alcohol and Drug Abuse Patient Records regulations: The Federal rules restrict any use of the information to criminally investigate or prosecute any alcohol or drug abuse patient.[facility] GeneralIn the event this information is protected by the Federal Confidentiality of Alcohol and Drug Abuse Patient Records regulations: The Federal rules restrict any use of the information to criminally investigate or prosecute any alcohol or drug abuse patient.[facility] the event this information is protected by the Federal Confidentiality of Alcohol and Drug Abuse Patient Records regulations: The Federal rules restrict any use of the information to criminally investigate or prosecute any alcohol or drug abuse patient.[facility] the event this information is protected by the Federal Confidentiality of Alcohol and Drug Abuse Patient Records regulations: The Federal rules restrict any use of the information to criminally investigate or prosecute any alcohol or drug abuse patient.[facility] GeneralIn the event this information is protected by the Federal Confidentiality of Alcohol and Drug Abuse Patient Records regulations: The Federal rules restrict any use of the information to criminally investigate or prosecute any alcohol or drug abuse patient.[facility] GeneralIn the event this information is protected by the Federal Confidentiality of Alcohol and Drug Abuse Patient Records regulations: The Federal rules restrict any use of the information to criminally investigate or prosecute any alcohol or drug abuse patient.[facility] GeneralIn the event this information is protected by the Federal Confidentiality of Alcohol and Drug Abuse Patient Records regulations: The Federal rules restrict any use of the information to criminally investigate or prosecute any alcohol or drug abuse patient.[facility] GeneralIn the event this information is protected by the Federal Confidentiality of Alcohol and Drug Abuse Patient Records regulations: The Federal rules restrict any use of the information to criminally investigate or prosecute any alcohol or drug abuse patient.[facility] GeneralIn the event this information is protected by the Federal Confidentiality of Alcohol and Drug Abuse Patient Records regulations: The Federal rules restrict any use of the information to criminally investigate or prosecute any alcohol or drug abuse patient.[facility] GeneralIn the event this information is protected by the Federal Confidentiality of Alcohol and Drug Abuse Patient Records regulations: The Federal rules restrict any use of the information to criminally investigate or prosecute any alcohol or drug abuse patient.[facility] GeneralIn the event this information is protected by the Federal Confidentiality of Alcohol and Drug Abuse Patient Records regulations: The Federal rules restrict any use of the information to criminally investigate or prosecute any alcohol or drug abuse patient.[facility] GeneralIn the event this information is protected by the Federal Confidentiality of Alcohol and Drug Abuse Patient Records regulations: The Federal rules restrict any use of the information to criminally investigate or prosecute any alcohol or drug abuse patient.[facility] GeneralIn the event this information is protected by the Federal Confidentiality of Alcohol and Drug Abuse Patient Records regulations: The Federal rules restrict any use of the information to criminally investigate or prosecute any alcohol or drug abuse patient.[facility] Reason for Visit (unrecogniz ed section and content) Reason Comments New Patient Evaluation Sleep Apnea Specialty Diagnoses / Procedures Referred By Contac t Referred To Contact Diagnoses Severe obstructive sleep apnea Procedures CONSULT TO SLEEP MEDICINE - ADULT NEW PATIENT VISIT LEVEL 5 Calvin Vega MD [address] [place] [address] Referral ID Status Reason Start Date Expiration Date V isits Requested Visits Authorized [id number] Closed PCP Requested Referral 03/22/2021 03/22/2022 1 1 Reason Comments Physical Reason Comments Blood Pressure Check Reason Comments Hypertension Reason Comments Patient Question Reason Comments Refill Request Reason Comments Follow Up Reason Comments Follow Up Reason Comments Established Patient Sleep Apnea Reason Comments 6 Month Exam Reason Comments Consult Screening for colon cancer Specialty Diagnoses / Procedures Referred By Contac t Referred To Contact General Surgery Diagnoses Screening for colon cancer Procedures CONSULT TO GENERAL SURGERY OFFICE/OUTPATIENT [facility] 60-74 MINUTES Hosea Tucker PA-C [address] [place] [address] Referral ID Status Reason Start Date Expiration Date V isits Requested Visits Authorized [id number] Closed PCP Requested Referral 10/04/2022 10/04/2023 1 1 Reason Comments Physical Reason Comments Radiology CT Specialty Diagnoses / Procedures Referred By Contac t Referred To Contact CT IMAGING Diagnoses Right-sided abdominal pain of unknown cause Abdominal pain, unspecified abdominal location Procedures CT ABD/PEL W IVCON CT ABD & PELVIS W/CONTRAST Calvin Vega MD [address] [place] [address] [place] [address] Referral ID Status Reason Start Date Expiration Date V isits Requested Visits Authorized [id number] Closed Auto-Generate d Referral 04/17/2023 04/17/2023 1 1 Reason Comments patient calling with update Reason Comments Ovarian Cyst Specialty Diagnoses / Procedures Referred By Hamilton porter Referred To Contact [facility] Diagnoses Ovarian cyst, right Pelvic pain in female Procedures PELVIC US WHI US PELVIC NONOBSTETRIC REAL-TIME IMAGE COMPLETE Barry Garcia MD [address] [place] [address] [facility] [address] [place] [address] Referral ID Status Reason Start Date Expiration Date V isits Requested Visits Authorized [id number] Closed Auto-Generate d Referral 05/03/2023 05/03/2023 1 1 Reason Onset Date Comments Refill Request 05/16/2023 Reason Comments Yearly Exam Reason Comments Pre-Op Visit Endometrial Biopsy Care Teams (unrecognized sec tion and content) Party Planner Relationship Specialty Start Date End Date Calvin Vega MD [address] [place] [address] PCP - General Family Practice 08/25/14 Party Planner Relationship Specialty Start Date End Date Calvin Vega MD [address] [place] [address] PCP - General Family Medicine 08/25/14 Party Planner Relationship Specialty Start Date End Date Calvin Vega MD [address] [place] [address] PCP - General Family Medicine 08/25/14 Party Planner Relationship Specialty Start Date End Date Calvin Vega MD [address] [place] [address] PCP - General Family Medicine 08/25/14 Party Planner Relationship Specialty Start Date End Date Calvin Vega MD [address] [place] [address] PCP - General Family Medicine 08/25/14 Party Planner Relationship Specialty Start Date End Date Calvin Vega MD [address] [place] [address] PCP - General Family Medicine 08/25/14 Party Planner Relationship Specialty Start Date End Date Calvin Vega MD [facility] [place] [address] PCP - General Family Medicine 08/25/14 Party Planner Relationship Specialty Start Date End Date Calvin Vega MD [facility] [place] [address] PCP - General Family Medicine 08/25/14 Party Planner Relationship Specialty Start Date End Date Calvin Vega MD [address] [place] [address], [place] [address] PCP - General Family Medicine 08/25/14 Party Planner Relationship Specialty Start Date End Date Calvin Vega MD [address] [place] [address], [place] [address] PCP - General Family Medicine 08/25/14 Party Planner Relationship Specialty Start Date End Date Calvin Vega MD [address] [place] [address], [place] [address] PCP - General Family Medicine 08/25/14 Party Planner Relationship Specialty Start Date End Date Calvin Vega MD [facility] [place] [address] PCP - General Family Medicine 08/25/14 Party Planner Relationship Specialty Start Date End Date Calvin Vega MD [facility] [place] [address] PCP - General Family Medicine 08/25/14 Party Planner Relationship Specialty Start Date End Date Calvin Vega MD [address] [place] [address], [place] [address] PCP - General Family Medicine 08/25/14 Party Planner Relationship Specialty Start Date End Date Calvin Vega MD [address] [place] [address] PCP - General Family Medicine 08/25/14 Party Planner Relationship Specialty Start Date End Date Calvin Vega MD [address] [place] [address] PCP - General Family Medicine 08/25/14 Party Planner Relationship Specialty Start Date End Date Calvin Vega MD [address] [place] [address] PCP - General Family Medicine 08/25/14 Party Planner Relationship Specialty Start Date End Date Calvin Vega MD [address] [place] [address] PCP - General Family Medicine 08/25/14 Party Planner Relationship Specialty Start Date End Date Calvin Vega MD [address] [place] [address] PCP - General Family Medicine 08/25/14 Party Planner Relationship Specialty Start Date End Date Calvin Vega MD [address] [place] [address] PCP - General Family Medicine 08/25/14 Party Planner Relationship Specialty Start Date End Date Calvin Vega MD [address] [place] [address] PCP - General Family Medicine 08/25/14 Party Planner Relationship Specialty Start Date End Date Calvin Vega MD [address] [place] [address] PCP - General Family Medicine 08/25/14 Party Planner Relationship Specialty Start Date End Date Calvin Vega MD [address] [place], [place] 308[address] [phone] PCP - General Family Medicine 08/25/14 Party Planner Relationship Specialty Start Date End Date Calvin Vega MD [address] [place] [address] PCP - General Family Medicine 08/25/14 Party Planner Relationship Specialty Start Date End Date Calvin Vega MD [address] [place] [address] PCP - General [facility] Medicine 08/25/14 Party Planner Relationship Specialty Start Date End Date Calvin Vega MD [address] [place] [address] PCP - General [facility] 08/25/14 Party Planner Relationship Specialty Start Date End Date Calvin Vega MD [address] [place], [place] [id number] PCP - General [facility] Medicine 08/25/14 FOR RECORDS PERTAINING TO PATIENTS WHO ARE OR HAVE BEEN ENROLLED IN A CHEMICAL DEPENDENCY/SUBSTANCEABUSE PROGRAM, SOME INFORMATION MAY BE OMITTED. This clinical summary was aggregated from multiple sources. Caution should be exercised in using it in the provision of clinical care. This summary normalizes information from multiple sources, and as a consequence, information in this document may materially change the coding, format and clinical context of patient data. In addition, data may be omitted in some cases. CLINICAL DECISIONS SHOULD BE BASED ON THE PRIMARY CLINICAL RECORDS. [employer] [facility] provides no warranty or guarantee of the accuracy or completeness of information in this document.
[2023-07-12 07:48] VITALS: BP 123/80; PULSE 83; RESP 18; TEMP 36.3; O2SAT 100; BMI 40.4
[2023-07-12 07:49] LABS: Internal QC Validated? YES +Cl - CLEAR BKGD; Pregnancy, Urine Negative Negative; Record Kit Lot#,Urine Preg HCG0000667200
[2023-07-12] MEDS: Lactated Ringers 1,000 ML 15 ML IV (07:59)
[2023-07-12] MEDS: Ketorolac 30 MG/ML Syringe IV (07:59)
[2023-07-12] MEDS: Acetaminophen 500 MG Tablet 1000 MG PO (07:59)
--- NOTE | 2023-07-12 08:40 | OV_PTH ---
PATHOLOGY RESULTS PATIENT: JAYE PATTERSON LOC: [facility] [place] U#:[id number] AGE/SX: 48/F ROOM: RE07/12/[address]: Dr. Rosy Leiva MD : 1975 BED: DIS: 07/12/2023 SPEC #: [id number] RECD: 07/12/23 11:14 STATUS: MANJULA REJamel #: [id number] ANNIE: 07/12/23 08:[address]: Rosy Leiva DEPT: SURGICAL PATHOLOGY RECD BY: Sariah Perkins ENTERED: 07/12/23 11:34 SP TYPE: OVARY OTHR DR: Dr. Mahesh Kinney MD Tissues: Fallopian tube OVARIAN CYST Endometrium, NOS Procedures: Decalcification bone/plaque Surgery Specimen Level II Surgery Specimen Level IV Surgery Specimen Level V HEADER OPERATION: Laparoscopic, RSO, left salpingectomy, left ovarian cystotomy PRE-OP DIAGNOSIS: Dermoid cyst of right ovary, sterilization, menorrhagia TISSUE SUBMITTED: A - Bilateral fallopian tubes, B - Right ovary, C - Endometrial curettings MICROSCOPIC DIAGNOSIS A. Bilateral fallopian tubes, salpingectomy: Bilateral fallopian tubes, no pathologic diagnosis. B. Right ovary, cystectomy: Mature cystic teratoma (dermoid cyst, 7.5 cm in greatest dimension). C. Endometrial curettings: Proliferative endometrium with focal area of disordered proliferative endometrium. Fragments of benign ecto- and endocervical mucosa. SJ:jose 07/17/2023 MICROSCOPIC DESCRIPTION Slides are reviewed. GROSS DESCRIPTION A - Received in fixative is one container labeled with the patient's name and designated bilateral fallopian tubes. The specimen consists of bilateral fallopian tubes including fimbrial ends measuring 5.0 cm in length and 0.8 cm in diameter and 7.0 cm in length and 0.6 cm in diameter. The fallopian tubes are not identified as right or left. Sections reveal unremarkable cut surfaces. Pest Management Supervisor sections are submitted in two cassettes with each cassette containing one fallopian tube. B - Received in fixative is one container labeled with the patient's name and designated right ovary. The specimen consists of a previously ruptured cystic ovary measuring 7.5 x 6.0 x 2.0 cm. Also present in the container is a detached piece of de luna-pink soft tissue measuring 4.0 x 3.0 x 1.0 cm. Multiple hair forming a ball are also present in the container. The cystic ovary is filled with hair and sebum-like material. A focal solid area is also noted. The focal area also shows bone formation. Pest Management Supervisor sections are submitted in six cassettes. Cassettes 1 & 2 also contain the detached piece of tissue. Cassette 6 contains the area of bone formation and submitted after decalcification. C - Received in fixative is one container labeled with the patient's name and designated endometrial curettings. The specimen consists of multiple fragments of hemorrhagic soft tissue that in aggregate measure 5.0 x 3.0 x 0.3 cm. The specimen is totally submitted in two cassettes. / JARETH:jose 07/12/23 TC: CPT: 84792 x2, 07268, 44439, 33464
--- NOTE | 2023-07-12 09:16 | DCINST_ITS ---
Discharge Instructions Diet Discharge Diet: No restrictions (Increase fluid intake for the next 48 hours.) Activity Return to work on:: 07/15/23 May resume sexual activity in: 1 week Additional Activity Instructions:: Ambulate often the next week after surgery. Nothing in the vagina for 5 days. Dressing / Incision Call your doctor if your incision/area has: Continuous Slow Oozing, Sudden Increased Bleeding, Increased Pain/ Swelling, Increased Redness and Foul Smelling Discharge Call your doctor if you observe: Fever of 101 or Higher Cleanse incision/area with: Soap & Water (Your incisions have skin glue, it can get wet. Leave it on until it falls off or at least 10 days) Follow Up Care Please Follow Up With: Rosy Leiva MD When: Call [phone] or send a [email or web address] message as needed for follow up or nonurgent questions. Test Results: Test results from this visit will be discussed in further detail at your follow- up appointment, if applicable. Discharge Plan Admission Attending Provider: Rosy Leiva Primary Care Provider: Mahesh Kinney Discharge Orders/Prescriptions Prescriptions: No Action fluticasone propionate 50 mcg/actuation spray,suspension 1 spray intranasal DAILY PRN (Reason: allergy symptoms) Rx Instructions: administer into each nostril sumatriptan succinate [Imitrex] 50 mg tablet 50 mg PO Q2H PRN (Reason: migraine headache) Rx Instructions: do not exceed 4 doses per 24 hrs multivitamin [Daily Multi-Vitamin] Tablet 1 tab PO DAILY losartan 25 mg tablet 12.5 mg PO DAILY Patient Comments: TAKE 1 TABLET BY MOUTH EVERY DAY Referrals / Follow Up: Mahesh Kinney MD [Primary Care Provider] - Disposition Disposition (needs filled in before D/C Order can be placed): Home, Self Care
[2023-07-12] MEDS: Bupivacaine 0.5% PF 10 ML VIAL (09:28)
[2023-07-12] MEDS: Levonorgestrel IUD (Liletta) 1 EACH INTRA-UTER (10:05)
[2023-07-12] MEDS: Lidocaine 1% /Epi 1:100 (20ml) 20 ML Vial (10:36)
--- NOTE | 2023-07-12 10:51 | PCM.OPRPT ---
Problems Associated Problem List Diagnoses (1) Adenomyosis: (2) Menorrhagia: (3) Request for sterilization: (4) Dermoid cyst of right ovary: Report of Operation Date of Procedure: 07/12/23 Pre-Operative Diagnosis: menorrhagia, adnenomyosis, right ovarian dermoid cyst, simple left ovarian cyst, sterilization request Post-Operative Diagnosis: same Surgery/Procedure Performed:: left ovarian cystotomy, RSO, left salpingectomy, hysteroscopy D&C with Liletta IUD insertion Description of Surgical Findings:: dermoid cyst right ovary, with hair and sebaceous material, lush endometrium, no discrete pathology, simple cyst of left ovary, grossly normal tubes , cervix, uterus and vagina Surgeon: Rosy Leiva behavioral health professional: Macy gregorio Type of Anesthesia: General Anesthesiologist: Antoni Hennessy Special Medications: none Specimen's removed: right tube and ovary, left fallopian tube, endometrial curettings Drains: none Estimated Blood Loss (mL): 20 Fluids Replaced: 1200 Description of Procedure: The patient was taken to the operating room where she was prepped and draped in the dorsolithotomy position. A weighted speculum was placed in the vagina and the anterior lip of the cervix was grasped with a tenaculum. The [] uterine manipulator was placed and the remainder of the instruments were removed from the vagina. Attention was turned to the abdomen. All port sites were infiltrated with 0.5% Marcaine before skin incisions were made. A 5 mm [intraumbilical] incision was made. The anterior abdominal wall was tented up with 2 towel clamps while a 5 mm blade less trocar and sleeve were [directly inserted]. Intraperitoneal placement was confirmed with the laparoscope. The pneumoperitoneum was created and the underlying abdominal contents were intact. The patient was placed in Trendelenburg. Right and left lower quadrant ports were placed under direct visualization lateral to the inferior epigastric vessels. The bowel was swept away and the above findings were noted. Cautery was used to make a small incision in the left ovary. Clear fluid returned. The cyst was approximately 4 cm and 1 make sure it was not a dermoid cyst. This ovary was then left intact. The antimesenteric portion of the left tube was clamped, sealed and transected with the LigaSure device and it was amputated from the cornual end. Excellent hemostasis was noted. The right ureter was noted. The infundibulopelvic ligament was then clamped sealed and transected with the LigaSure device. The utero ovarian ligament was clamped sealed and transected with the LigaSure device. Excellent hemostasis was noted. Any remaining carcinoma broad ligament was clamped sealed and transected with the LigaSure device. The umbilical incision was extended and the fascia was tagged. The 10 mm Endo Catch bag was placed through the umbilical incision. The ovary and cyst were too large to be placed into it. Therefore I made an incision in the ovary and drained out some sebaceous material. The cyst and tube were then placed along with the ovary and the Endo Catch bag and brought to the incision. I had to remove some or sebaceous material and some hair material and then was able to remove the bag. The pedicles were reexamined and excellent hemostasis was noted. The suction filter changer was used to irrigate any remaining sebaceous material and excellent hemostasis the pedicles was again noted. The fascia was closed in the umbilical incision with a running 0 Vicryl suture. Lateral ports were removed after the pneumoperitoneum had been released. The skin was all closed with Monocryl in a subcuticular fashion. Attention was then turned back to the vagina where the uterine manipulator was removed. The cervix was dilated and the hysteroscope was performed in the usual fashion. Both tubal ostia were noted. There was lush endometrium but no discrete polyps or fibroids. The hysteroscope was removed and a gentle sharp curettage was performed. The Liletta IUD was then inserted in the usual sterile fashion. Strings were trimmed to 2 cm. All sponge lap and needle counts were correct. Vaginal sweep was completed by me. I performed the entire procedure with assistance. Grafts/Implants Used: none Procedure Start Time: 09:28 Procedure Stop Time: 10:44 Complications none Admit VTE Documentation VTE Present on Admission: No VTE Mechan Device Prophylaxis: SCD's VTE Pharm Prophylaxis ordered?: No
[2023-07-12 10:56] VITALS: BP 123/80; BP 133/68; PULSE 89; RESP 16; TEMP 36.1; O2SAT 100
[2023-07-12 11:00] VITALS: BP 112/64; BP 123/80; PULSE 75; RESP 16; O2SAT 95
[2023-07-12 11:13] VITALS: BP 122/72; BP 123/80; PULSE 73; RESP 16; TEMP 36.2; O2SAT 100
[2023-07-12 12:24] VITALS: BP 113/65; BP 123/80; PULSE 59; RESP 16; TEMP 36.1; O2SAT 99
== END 2023-07-12 12:26 | disposition home or self-care (01) ==
LOC: SDC 07:19 → AC 07:19
PROVIDERS: PCP Family Medicine; Referring Provider Obstetrics & Gynecology; Visit Provider Obstetrics & Gynecology
PROC: (CPT 58661; principal; 2023-07-12 08:30)
DX: N92.0 Excessive and frequent menstruation with regular cycle (principal); Z30.2 Encounter for sterilization; I10 Essential (primary) hypertension; N80.03 Adenomyosis of the uterus; Z80.0 Family history of malignant neoplasm of digestive organs; D27.0 Benign neoplasm of right ovary; Z80.42 Family history of malignant neoplasm of prostate; G89.29 Other chronic pain
CPT/HCPCS: 58662; 58661; 58300; 00840; 36415; 81025; 85027; 86850; 86900; 86901; 88302; 88305; 88307; 88311; 93005; J7120; J2405